=== PATIENT | male | born 1950 | race Caucasian/White ===

== ENCOUNTER 2017-01-04 11:01 | Inpatient (IN) | payer MEDICARE ==
[2017-01-04 12:24] VITALS: BMI 26.5
[2017-01-04] MEDS ORDERED: LIDOCAINE 2% INJ 20 MG/ML (20 ML MDV) ONE (12:48)
[2017-01-04] MEDS ORDERED: PRASUGREL 10 MG TAB ONE (13:00)
[2017-01-04] MEDS ORDERED: BIVALIRUDIN BOLUS 250 MG/50 ML IV ONE (13:10)
[2017-01-04] MEDS: NITROGLYCERIN 1000MCG/10ML SYRINGE INTRACORON ONE ×2 (13:10→13:26)
[2017-01-04] MEDS ORDERED: PRASUGREL 10 MG TAB PO ONE (13:13)
[2017-01-04] MEDS ORDERED: SODIUM CHLORIDE 0.9% 1,000 ML IV ONE (13:14)
[2017-01-04] MEDS ORDERED: BIVALIRUDIN 250 MG in SODIUM CHLORIDE 0.9% 50 ML IV ONE (13:14)
[2017-01-04] MEDS ORDERED: IOHEXOL 350 MG/ML 125ML BOTTLE INJ ONE (13:29)
[2017-01-04] MEDS ORDERED: ZOLPIDEM 5 MG TAB PO PRN (13:44)
[2017-01-04] MEDS ORDERED: MAG HYDROX/AL HYDROX/SIMETH 30 ML CUP PO PRN (13:44)
[2017-01-04] MEDS ORDERED: RX INFO: IV CONTRAST WAS GIVEN 1 EACH MISC MISCELLANE PRN (13:44)
[2017-01-04] MEDS ORDERED: NITROGLYCERIN SL TABS 0.4 MG TAB SUBLINGUAL PRN (13:44)
[2017-01-04] MEDS ORDERED: ATROPINE SULFATE 0.1 MG/ML 10ML SYRINGE IV PRN (13:44)
[2017-01-04] MEDS ORDERED: SODIUM CHLORIDE 0.9% 1,000 ML IV SCH (13:45)
[2017-01-04] MEDS: ATORVASTATIN 80 MG TAB PO SCH (20:34)
[2017-01-04] MEDS: METOPROLOL TARTRATE 25 MG TAB PO SCH (20:34)
[2017-01-04 23:47] LABS: CH 34.3; CHCM 35.5; HCT 41.5 % (39.0-53.0); HDW 2.64; HGB 14.8 gm/dL (13.0-17.5); MCH 34.5 pg (25.0-35.0); MCHC 35.6 g/dL (31.0-37.0); MCV 96.9 fL (80.0-100.0); Mean Platelet Volume 7.9; RBC 4.29 m/uL (4.30-5.90); RDW 13.5 % (11.5-15.5); WBC 6.4 k/uL (3.8-10.6)
[2017-01-04 23:52] LABS: INR 1.1 (<1.2); Prothrombin Time 10.8 sec (9.0-12.0)
[2017-01-05 07:17] LABS: Anion Gap 8 mmol/L; Blood Urea Nitrogen 12 mg/dL (9-20); Calcium 8.6 mg/dL (8.4-10.2); Carbon Dioxide 24 mmol/L (22-30); Chloride 108 mmol/L (98-107); Glucose 77 mg/dL (74-99); Non-African American GFR(MDRD) >60 (>60 ml/min/1.73 sqM); Potassium 4.2 mmol/L (3.5-5.1); Sodium 140 mmol/L (137-145)
[2017-01-05 08:26] VITALS: RESP 16
[2017-01-05] MEDS: METOPROLOL TARTRATE 25 MG TAB PO SCH ×2 (08:28→20:17)
[2017-01-05] MEDS: ASPIRIN 81 MG CHEW PO SCH (08:28)
[2017-01-05] MEDS: PRASUGREL 10 MG TAB PO SCH (08:28)
[2017-01-05] MEDS ORDERED: LISINOPRIL 5 MG TAB PO SCH (09:00)
[2017-01-05] MEDS ORDERED: TAMSULOSIN 0.4 MG CAP.ER.24H PO SCH (09:00)
--- NOTE | 2017-01-05 10:53 | PTCA ---
Mr. Edwards is a 66-year-old male who presented to [facility] with symptoms of chest discomfort. He was evaluated by Dr. Verdugo and subsequently, because of abnormal testing, underwent cardiac catheterization that revealed significant disease involving the LAD, left circumflex and the right coronary artery. In view of that, recommendation was made regarding angioplasty and stenting. The procedure, its risks and complications were discussed with the patient, who was in full understanding and agreement. PROCEDURE: Patient was brought to the microbiology lab manager in a fasting, semi-sedated state. He had received sedation at [facility] and he was in a moderate conscious sedated state. Using guidewire exchange technique, the 6 Maldivian sheath in the right coronary artery was exchanged to a new 6 Maldivian sheath. Following that, 6 Maldivian FL4 guiding catheter was introduced into the system. After cannulating the left main, a 0.014 balanced medium-weight J wire was advanced across the lesion, positioned distally in the LAD. Subsequently a 2.5 x 12 mm Xience Alpine stent was deployed, post dilated at 14 atmospheres. After the last inflation, after appropriate wait, the balloon and the guidewire were withdrawn back into the catheter. Images were obtained and repeated. Those images revealed stable, successful stenting. At that point, the guidewire and the balloon were removed and the wire was introduced in the left circumflex, positioned distally up to its marginal branch, and a 2.75 x 23 mm Xience Alpine stent was deployed, post dilated at 14 atmospheres. After the last inflation, after appropriate wait, the balloon and the guidewire were withdrawn back into the guiding catheter. Images were obtained and repeated. Those images revealed stable successful stenting. At that time the guiding catheter, the balloon and the guidewire were removed and a 6 Maldivian right Pk diagnostic catheter was introduced and images of the right coronary artery were performed after giving intracoronary nitroglycerin. After the catheter and sheath were removed, hemostasis was obtained with deployment of an Angioseal. There were no immediate complications. Patient was returned to his room in stable condition. Of note, patient received Angiomax per protocol as well as oral loading dose of Effient. He had EKG changes as well as chest discomfort with the inflation that resolved at the end of the procedure. RESULT: 1. Successful stenting of the mid LAD, with reduction in stenosis from 90% to 0% . 2. Successful stenting of the first obtuse marginal branch, with reduction in stenosis from 90% to 0%. RECOMMENDATIONS: Patient will be continued on aspirin, Effient, beta blockers and a statin. The importance of dual antiplatelet treatment was discussed with the patient and his family, who are in full understanding and agreement. Duration of procedure was 30 minutes. MTDD
--- NOTE | 2017-01-05 10:57 | MISC ---
LETTER January 04, 2017 Re: Bon Edwards (50) Dear Dr. Iglesias, I had the pleasure of performing coronary angioplasty and stenting on Mr. Edwards at [facility] on January 04, 2017. In brief, he underwent stenting of his LAD and the left circumflex. I am hopeful that this procedure will stabilize his status. He will be evaluated at a later time regarding the need to undergo revascularization of his right coronary artery. Thank you again for allowing me to participate in his care. Please feel free to call with any questions. Sincerely, Adriana Goncalves M.D. LEESA
--- NOTE | 2017-01-05 12:41 | P.PN ---
Subjective Principal diagnosis: CAD This 66-year-old gentleman who presented to [facility] with symptoms of chest discomfort. He was evaluated there by Dr. Verdugo underwent a stress test which came back to be abnormal and subsequently was transferred here. Patient underwent successful stenting of the mid LAD as well as set stenting of the first obtuse marginal branch. He was also noted to have disease in the right coronary artery. Patient was seen and examined this morning, he did have any brief episode of chest discomfort through the night last night lasting only seconds. EKG this morning shows normal sinus rhythm with no changes. Patient has been encouraged to be up ambulating in the hallway today with the plan for possible discharge home in the morning. Objective - Vital Signs Vital signs: Vital Signs Temp 97.1 F L 01/05/17 11:45 Pulse 55 L 01/05/17 11:45 Resp 16 01/05/17 11:45 BP 114/76 01/05/17 11:45 Pulse Ox 96 01/05/17 11:45 Intake & Output 01/04/17 01/05/17 01/05/17 18:59 06:59 18:59 Intake Total 72.08 675 180 Output Total 350 575 Balance -277.92 100 180 Weight 91.172 kg 91.5 kg Intake: IV 72.08 675 Sodium Chloride 0.9% 1, 675 000 ml @ 100 mls/hr IV . Q10H [facility] Rx#:[id number] Oral 180 Output: Urine 350 575 Other: Voiding Method Urinal Toilet Urinal # Voids 1 - Exam PHYSICAL EXAMINATION: HEENT: Head is atraumatic, normocephalic. Pupils equal, round. Neck is supple. There is no elevated jugular venous pressure. HEART EXAMINATION: Heart S1, S2 normal. No murmur or gallop heard. CHEST EXAMINATION: Lungs are clear to auscultation and precussion. No chest wall tenderness is noted on palpation or with deep breathing. ABDOMEN: Soft, nontender. Bowel sounds are heard. No organomegaly noted. Rt groin soft, no evidence of any hematoma. EXTREMITIES: 2+ peripheral pulses with no evidence of peripheral edema and no calf tenderness noted. NEUROLOGIC patient is awake, alert and oriented -3. . - Labs CBC & Chem 7: 01/04/17 23:30 01/05/17 06:46 Labs: Abnormal Lab Results - Last 24 Hours (Table) 01/04/17 01/05/17 Range/Units 23:30 06:46 RBC 4.29 L (4.30-5.90) m/uL Chloride 108 H (98-107) mmol/L Assessment and Plan Plan: Assessment and plan #1 status post angioplasty with stent placement of the mid LAD as well as first obtuse marginal branch. Blockage in the RCA also present. #2 positive stress test #3 hyperlipidemia Plan We will continue the patient on his current medications. He's been encouraged to be up ambulating in the hallway today. We'll plan on discharge home in the morning if stable. He will follow-up with Dr. Garcia in the office in one week. Subsequent to that patient will follow-up with Dr. Metz in the office in approximately 4 weeks. DNP note has been reviewed, I agree with a documented findings and plan of care. Patient was seen and examined.
--- NOTE | 2017-01-05 13:52 | P.HPIM ---
History of Present Illness H&P Date: 01/05/17 Chief Complaint: Abnormal stress test This is a 66-year-old gentleman that is transferred from the [facility] with the chest discomfort and abnormal stress test. Patient was brought into the hospital underwent a coronary angiogram unsuccessful PCI/PTCA to the mid LAD as well as first acute marginal branch Patient is seen today states that he does not have any complaint of headaches nausea vomiting chest pain difficulty breathing abdominal pain. Patient underwent a left radial approach which appears to have no problems No abnormal rhythms were noted Review of Systems All systems: negative (Noted in HPI) Past Medical History Past Medical History: Atrial Fibrillation, Hyperlipidemia Additional Past Medical History / Comment(s): arthritis History of Any Multi-Drug Resistant Organisms: None Reported Past Surgical History: Orthopedic Surgery Past Anesthesia/Blood Transfusion Reactions: No Reported Reaction Past Psychological History: No Psychological Hx Reported Smoking Status: Former smoker Past Alcohol Use History: Occasional Past Drug Use History: None Reported - Past Family History Mother Family Medical History: Cancer Father Family Medical History: CVA/TIA Medications and Allergies Home Medications Medication Instructions Recorded Confirmed Type Ibuprofen [Motrin] 400 mg PO Q6HR PRN 01/04/17 01/04/17 History Multivitamins, Thera [Multivitamin 1 tab PO DAILY 01/04/17 01/04/17 History (formulary)] Davidson-3/Dha/Epa/Fish Oil [Fish Oil 1 cap PO DAILY 01/04/17 01/04/17 History 500 mg Softgel] Turmeric Root Extract [Turmeric] 500 mg PO DAILY 01/04/17 01/04/17 History Allergies Allergy/AdvReac Type Severity Reaction Status Date / Time No Known Allergies Allergy Verified 01/04/17 14:03 Physical Exam Vitals: Vital Signs Temp Pulse Resp BP BP Pulse Ox 01/05/17 11:45 97.1 F L 55 L 16 114/76 96 01/05/17 08:25 97 F L 68 16 125/76 94 L 01/05/17 04:00 98.3 F 57 L 16 125/80 95 01/05/17 00:00 98.1 F 52 L 16 129/79 96 01/04/17 20:00 98.6 F 58 L 16 161/95 96 01/04/17 17:29 69 18 141/86 95 01/04/17 16:29 69 18 140/86 95 07/21/17 16:00 69 18 01/04/17 15:29 96.7 F L 65 18 146/89 97 01/04/17 14:59 66 18 138/76 97 01/04/17 14:29 61 18 132/85 97 01/04/17 14:14 58 L 18 149/87 96 01/04/17 13:56 17 128/60 98 Intake and Output 01/04/17 01/05/17 01/05/17 22:59 06:59 14:59 Intake Total 150 525 180 Output Total 125 450 Balance 25 75 180 Intake: IV 150 525 Sodium Chloride 0.9% 1, 150 525 000 ml @ 100 mls/hr IV . Q10H [facility] Rx#:[id number] Oral 180 Output: Urine 125 450 Other: Voiding Method Urinal Toilet Urinal # Voids 1 1 Weight 91.5 kg Physical exam Gen. appearance oriented 3 in no distress Neck is supple no JVD Lungs good air entry clear to auscultation no rhonchi or wheezing Heart S1-S2 heard regular rate and rhythm no murmurs appreciated Abdomen is soft nontender no organomegaly bowel sounds are intact Neurologically cranial nerves II-12 grossly intact no focal motor or sensory deficits noted Skin no abnormalities appreciated Results CBC & Chem 7: 01/04/17 23:30 01/05/17 06:46 Labs: Abnormal Lab Results - Last 24 Hours (Table) 01/04/17 01/05/17 Range/Units 23:30 06:46 RBC 4.29 L (4.30-5.90) m/uL Chloride 108 H (98-107) mmol/L Thrombosis Risk Factor Assmnt - Choose All That Apply Each Factor Represents 1 point: Obesity (BMI >25) Each Risk Factor Represents 2 Points: Age 61-74 years Thrombosis Risk Factor Assessment Total Risk Factor Score: 3 Thrombosis Risk Factor Assessment Level: Moderate Risk Assessment and Plan Plan: #1 chest pain secondary to coronary disease status post angioplasty of the mid LAD and first of diffuse marginal branch #2 right coronary disease as well #3 dyslipidemia Plan Dual antiplatelet therapy. Statin therapy. Discussed importance of medication as patient will likely be discharged home in the next 24 hours.
[2017-01-05] MEDS: ATORVASTATIN 80 MG TAB PO SCH (20:17)
[2017-01-06] MEDS: PRASUGREL 10 MG TAB PO SCH (08:05)
[2017-01-06] MEDS: METOPROLOL TARTRATE 25 MG TAB PO SCH (08:06)
[2017-01-06] MEDS: ASPIRIN 81 MG CHEW PO SCH (08:06)
[2017-01-06] MEDS ORDERED: METOPROLOL TARTRATE 25 MG TAB PO SCH (11:06)
[2017-01-06] MEDS ORDERED: LISINOPRIL 2.5 MG TAB PO SCH ×2 (11:30)
[2017-01-06] MEDS ORDERED: LISINOPRIL 5 MG TAB PO SCH (12:00)
[2017-01-06 12:15] VITALS: BP 112/68; PULSE 50; TEMP 97.4
[2017-01-06] MEDS: ATORVASTATIN 80 MG TAB PO SCH (12:30)
[2017-01-06] MEDS ORDERED: METOPROLOL TARTRATE 12.5 MG TAB PO SCH (21:00)
--- NOTE | 2017-01-07 11:48 | PN ---
Mr. Edwards is a 66 -year-old gentleman who was evaluated by cardiac catheterization at [facility] because of positive stress test. The patient was found to have triple vessel disease. The patient was brought to [facility] and was noted to have focal disease in the circumflex and the LAD. Rather diffuse disease in the small right coronary artery. The patient had stent placement of both LAD and circumflex. Right coronary artery was felt to be suboptimal for intervention. At this point, we have decided to proceed with maximum medical therapy and see if we can control his symptoms. If necessary, stent placement of the RCA also could be attempted. The patient had one bout of chest pain but since then has been stable. He has been having some loose bowel movement but otherwise the patient is feeling well. His groin is soft. He is being discharged home. He is instructed to take his medications regularly especially the aspirin and also Effient. The patient is concerned about the cost of Effient. We will change Effient to Plavix in about six weeks time. Until then, the patient will have some samples. The patient will have follow up in the office in one weeks time. The rest of the medications to be continued. Clinically, the patients lungs are clear. Heart is regular. No JVD. No peripheral edema. Vital signs are stable. IMPRESSION: 1. Status post stent placement of the LAD and circumflex with severe disease in the RCA which is a small caliber vessel. 2. Positive stress test. 3. Hypercholesterolemia. Follow up in the office in one week. LEESA
== END 2017-01-06 13:31 | disposition home or self-care (01) | DRG 247 ==
LOC: 6SEL 12:18
PROVIDERS: ADMIT Family Medicine; ATTEND Family Medicine
PROC: B2111ZZ Fluoroscopy of Multiple Coronary Arteries using Low Osmolar Contrast (ICD-10-PCS; 2017-01-04)
PROC: 027135Z Dilation of Coronary Artery, Two Arteries with Two Drug-eluting Intraluminal Devices, Percutaneous Approach (ICD-10-PCS; principal; 2017-01-04 13:00)
PROC: 4A023N7 Measurement of Cardiac Sampling and Pressure, Left Heart, Percutaneous Approach (ICD-10-PCS; 2017-01-04 13:00)
DX: I25.10 Atherosclerotic heart disease of native coronary artery without angina pectoris (principal); I48.91 Unspecified atrial fibrillation; E78.5 Hyperlipidemia, unspecified; E78.00 Pure hypercholesterolemia, unspecified; R94.39 Abnormal result of other cardiovascular function study; M19.90 Unspecified osteoarthritis, unspecified site; Z79.01 Long term (current) use of anticoagulants; Z87.891 Personal history of nicotine dependence; Z79.82 Long term (current) use of aspirin; Z79.1 Long term (current) use of non-steroidal anti-inflammatories (NSAID); Z79.899 Other long term (current) drug therapy; Z82.3 Family history of stroke; Z80.9 Family history of malignant neoplasm, unspecified
CPT/HCPCS: 80048; 85027; 85610

== ENCOUNTER 2017-12-18 21:47 | Emergency (ER) | payer MEDICARE ==
[2017-12-18 22:03] VITALS: BP 162/88; TEMP 98
[2017-12-18] MEDS ORDERED: SODIUM CHLORIDE 0.9% 1,000 ML IV STA (22:16)
[2017-12-18] MEDS ORDERED: ONDANSETRON 4 MG/2 ML VIAL IVP STA (22:16)
[2017-12-18] MEDS ORDERED: KETOROLAC 30 MG/ML 1 ML VIAL IVP STA (22:16)
[2017-12-18] MEDS ORDERED: MORPHINE SULFATE 2 MG/ML SYRINGE IVP STA (22:16)
[2017-12-18 22:37] LABS: Basophils % (A) 0 %; Eosinophils # (A) 0.1 k/uL (0-0.7); Eosinophils % (A) 1 %; HCT 43.6 % (39.0-53.0); Lymphocytes # (A) 0.7 k/uL (1.0-4.8); Lymphocytes % (A) 7 %; MCH 32.4 pg (25.0-35.0); MCHC 34.4 g/dL (31.0-37.0); MCV 94.4 fL (80.0-100.0); Mean Platelet Volume 7.1; Monocytes # (A) 0.5 k/uL (0-1.0); Monocytes % (A) 6 %; Neutrophils # (A) 8.1 k/uL (1.3-7.7); Neutrophils % (A) 85 %; Platelet Count 201 k/uL (150-450); RBC 4.62 m/uL (4.30-5.90); RDW 12.8 % (11.5-15.5); WBC 9.5 k/uL (3.8-10.6)
[2017-12-18 22:46] LABS: Albumin 4.1 g/dL (3.5-5.0); Calcium 8.7 mg/dL (8.4-10.2); Potassium 4.3 mmol/L (3.5-5.1); Total Bilirubin 0.7 mg/dL (0.2-1.3); Total Protein 6.7 g/dL (6.3-8.2)
[2017-12-18 22:53] LABS: Appearance,Urine Cloudy (Clear); Bacteria,Urine Rare /hpf; Bilirubin,Urine Negative (Negative); Blood,Urine Large (Negative); Color,Urine Light Red; Glucose,Urine (UA) Negative (Negative); Ketones,Urine Trace (Negative); Leukocyte Esterase,Urine Negative (Negative); Mucus,Urine Rare /hpf; Nitrite,Urine Negative (Negative); PH, Urine 5.5 (5.0-8.0); Protein,Urine 1+ (Negative); RBC,Urine >182 /hpf (0-5); Specific Gravity,Urine 1.024 (1.001-1.035)
[2017-12-18] MEDS ORDERED: TAMSULOSIN 0.4 MG CAP.ER.24H PO STA (22:55)
--- NOTE | 2017-12-18 22:57 | XR ---
EXAMINATION TYPE: XR KUB DATE OF EXAM: 12/18/2017 COMPARISON: 02/14/2014 HISTORY: Abdominal pain TECHNIQUE: 2 upright views FINDINGS: There is no sign of intestinal obstruction or pneumoperitoneum. Fecal pattern is normal. Th ere are no pathologic calcifications over the kidneys. Lung bases are clear of consolidation. IMPRESSION: Nonacute abdomen. No change.
[2017-12-18] MEDS ORDERED: ACET/COD 300 MG/30 MG STARTER PACK 6 TAB BTL PO STA (23:18)
[2017-12-18] MEDS ORDERED: IBUPROFEN 600 MG STARTER PACK 4 TAB BTL PO STA (23:19)
[2017-12-18] MEDS ORDERED: ONDANSETRON 4 MG ODT STARTER PACK 2 TAB BTL PO STA (23:19)
--- NOTE | 2017-12-18 23:21 | ED ---
Abdominal Pain HPI - General Chief Complaint: Abdominal Pain Stated Complaint: Abd Pain Time Seen by Provider: 12/18/17 22:07 Source: patient Mode of arrival: ambulatory Limitations: no limitations - History of Present Illness Initial Comments: 67-year-old male patient presents to the emergency department today for evaluation of left flank pain. Patient states this pain has been going on for the last couple of hours. States that the pain has moved into his left lower quadrant abdomen. States it is sharp and stabbing. States it feels similar to when he has had kidney stones in the past. Patient states he has noticed blood clots in his urine. States he has been nauseated and has vomited a couple of times. Denies any hematemesis. Denies any fever or chills. Denies any constipation or diarrhea. Patient denies any recent rash, shortness breath, chest pain, numbness, tingling, dizziness, weakness, headache, visual changes, or any other complaints. - Related Data Home Medications Medication Instructions Recorded Confirmed Mims-3/Dha/Epa/Fish Oil [Fish Oil 1 cap PO DAILY 01/04/17 01/04/17 500 mg Softgel] Previous Rx's Medication Instructions Recorded Aspirin 81 mg PO DAILY #30 01/06/17 Atorvastatin [Lipitor] 80 mg PO HS #30 tab 01/06/17 Lisinopril [Zestril] 2.5 mg PO DAILY #1 tab 01/06/17 Metoprolol Tartrate 12.5 mg PO BID #1 tab 01/06/17 Nitroglycerin Sl Tabs [Nitrostat] 0.4 mg SUBLINGUAL Q5M PRN #100 tab 01/06/17 Prasugrel [Effient] 10 mg PO DAILY #1 tablet 01/06/17 Hydrocodone/Acetaminophen [[place] 1 tab PO Q6HR PRN #12 tab 12/18/17 5-325] Ibuprofen [Motrin] 600 mg PO Q8HR PRN #30 tab 12/18/17 Ondansetron [Zofran ODT] 4 mg PO Q8HR PRN #10 tab 12/18/17 Tamsulosin HCl [Flomax] 0.4 mg PO DAILY #7 cap 12/18/17 Allergies Allergy/AdvReac Type Severity Reaction Status Date / Time No Known Allergies Allergy Verified 12/18/17 22:03 Review of Systems ROS Statement: Those systems with pertinent positive or pertinent negative responses have been documented in the HPI. ROS Other: All systems not noted in ROS Statement are negative. Past Medical History Past Medical History: Atrial Fibrillation, Chest Pain / Angina, Hyperlipidemia Additional Past Medical History / Comment(s): arthritis History of Any Multi-Drug Resistant Organisms: None Reported Past Surgical History: Heart Catheterization With Stent, Orthopedic Surgery Past Anesthesia/Blood Transfusion Reactions: No Reported Reaction Past Psychological History: No Psychological Hx Reported Smoking Status: Former smoker Past Alcohol Use History: Occasional Past Drug Use History: None Reported - Past Family History Mother Family Medical History: Cancer Father Family Medical History: CVA/TIA General Exam Limitations: no limitations General appearance: alert, in no apparent distress, other (Social well-developed , well-nourished adult male patient in no acute distress. Vital signs upon presentation are temperature 98.0F, pulse 57, respirations 16, blood pressure 162/88, pulse ox 97% on room air.) Eye exam: Present: normal appearance, PERRL, EOMI. Absent: scleral icterus, conjunctival injection, periorbital swelling Respiratory exam: Present: normal lung sounds bilaterally. Absent: respiratory distress, wheezes, rales, rhonchi, stridor Cardiovascular Exam: Present: regular rate, normal rhythm, normal heart sounds. Absent: systolic murmur, diastolic murmur, rubs, gallop, clicks GI/Abdominal exam: Present: soft, tenderness (Mild tenderness left lower quadrant), normal bowel sounds. Absent: distended, guarding, rebound, rigid Neurological exam: Present: alert, oriented X3, CN II-XII intact Psychiatric exam: Present: normal affect, normal mood Skin exam: Present: warm, dry, intact, normal color. Absent: rash Course Vital Signs 12/18/17 12/18/17 21:59 23:44 Temperature 98 F Pulse Rate 57 L 70 Respiratory 16 19 Rate Blood Pressure 162/88 O2 Sat by Pulse 97 Oximetry Medical Decision Making - Medical Decision Making 67 year-old male patient presented to the emergency department today for complaints of left flank pain that radiates into the left lower quadrant abdomen. Physical examination did reveal some mild left lower quadrant tenderness. Labs reviewed and did show BUN of 23, creatinine 1.1, urinalysis showed 1+ protein, trace ketones, large blood, greater than 182 red blood cells , rare bacteria, and rare mucous. KUB x-ray of the abdomen was unremarkable. Patient does have history of kidney stones, urinalysis findings are consistent with kidney stone. He will be discharged with pain management, Flomax, and instructions to increase fluids. He is instructed to follow-up with urology for further evaluation. Return parameters discussed in detail. He verbalizes understanding and agrees with this plan. - Lab Data Result diagrams: 12/18/17 20:28 12/18/17 20:28 Lab Results 12/18/17 12/18/17 12/18/17 Range/Units 20:28 20:28 22:25 WBC 9.5 (3.8-10.6) k/uL RBC 4.62 (4.30-5.90) m/uL Hgb 15.0 (13.0-17.5) gm/dL Hct 43.6 (39.0-53.0) % MCV 94.4 (80.0-100.0) fL MCH 32.4 (25.0-35.0) pg MCHC 34.4 (31.0-37.0) g/dL RDW 12.8 (11.5-15.5) % Plt Count 201 (150-450) k/uL Neutrophils % 85 % Lymphocytes % 7 % Monocytes % 6 % Eosinophils % 1 % Basophils % 0 % Neutrophils # 8.1 H (1.3-7.7) k/uL Lymphocytes # 0.7 L (1.0-4.8) k/uL Monocytes # 0.5 (0-1.0) k/uL Eosinophils # 0.1 (0-0.7) k/uL Basophils # 0.0 (0-0.2) k/uL Sodium 141 (137-145) mmol/L Potassium 4.3 (3.5-5.1) mmol/L Chloride 109 H (98-107) mmol/L Carbon Dioxide 23 (22-30) mmol/L Anion Gap 9 mmol/L BUN 23 H (9-20) mg/dL Creatinine 1.10 (0.66-1.25) mg/dL Est GFR (CKD-EPI)AfAm 80 (>60 ml/min/1.73 sqM) Est GFR (CKD-EPI)NonAf 69 (>60 ml/min/1.73 sqM) Glucose 120 H (74-99) mg/dL Calcium 8.7 (8.4-10.2) mg/dL Total Bilirubin 0.7 (0.2-1.3) mg/dL AST 27 (17-59) U/L ALT 46 (21-72) U/L Alkaline Phosphatase 97 (38-126) U/L Total Protein 6.7 (6.3-8.2) g/dL Albumin 4.1 (3.5-5.0) g/dL Amylase 57 (30-110) U/L Lipase 94 (23-300) U/L Urine Color Light Red Urine Appearance Cloudy (Clear) Urine pH 5.5 (5.0-8.0) Ur Specific [place] 1.024 (1.001-1.035) Urine Protein 1+ H (Negative) Urine Glucose (UA) Negative (Negative) Urine Ketones Trace H (Negative) Urine Blood Large H (Negative) Urine Nitrite Negative (Negative) Urine Bilirubin Negative (Negative) Urine Urobilinogen 2.0 (<2.0) mg/dL Ur Leukocyte Esterase Negative (Negative) Urine RBC >182 H (0-5) /hpf Urine Bacteria Rare H (None) /hpf Urine Mucus Rare H (None) /hpf - Radiology Data Radiology results: report reviewed, image reviewed To up reviews of the abdomen are obtained. This on sign of intestinal structure pneumoperitoneum. Fecal pattern is normal. There are no pathologic calcifications over the kidneys. Lung bases are clear consolidation. Impression by Dr. Collazo shows nonacute abdomen no change. Disposition Clinical Impression: Kidney stone on left side Disposition: HOME SELF-CARE Condition: Good Instructions: Kidney Stones (ED), How to Strain Your Urine (ED) Additional Instructions: Increase fluids. Take medications as directed. Follow-up with urology for further evaluation. Return here immediately for any new, worsening, or concerning symptoms. Prescriptions: Hydrocodone/Acetaminophen [[place] 5-325] 1 tab PO Q6HR PRN #12 tab PRN Reason: Pain Ibuprofen [Motrin] 600 mg PO Q8HR PRN #30 tab PRN Reason: Pain Ondansetron [Zofran ODT] 4 mg PO Q8HR PRN #10 tab PRN Reason: Nausea Tamsulosin HCl [Flomax] 0.4 mg PO DAILY #7 cap Is patient prescribed a controlled substance at d/c from ED?: Yes When asked, does pt state using other controlled substances?: No If prescribed controlled substance>3 days was MAPS reviewed?: Prescribed <3 Days If opioid is for acute pain is fill amount 7 days or less?: Yes If Rx opioid, was Start Talking consent form obtained?: Yes Referrals: Ariel Iglesias MD [Primary Care Provider] - 1-2 days Jerson Freeman MD [STAFF PHYSICIAN] - 1-2 days Time of Disposition: 23:21
[2017-12-18 23:46] VITALS: PULSE 70; RESP 19
== END 2017-12-18 23:44 | disposition home or self-care (01) ==
LOC: EC 21:47
DX: N20.0 Calculus of kidney (principal); Z87.891 Personal history of nicotine dependence; Z79.899 Other long term (current) drug therapy
CPT/HCPCS: 99284; 96374; 96375 ×2; 36415; 80053; 82150; 83690; 85025; 81001; 74018; J2405; J1885; J2270; S0119

== ENCOUNTER 2018-02-10 08:47 | Inpatient (IN) | payer MEDICARE ==
[2018-02-10] MEDS ORDERED: MORPHINE SULFATE 4 MG/ML SYRINGE IV STA (08:58)
[2018-02-10] MEDS ORDERED: SODIUM CHLORIDE 0.9% 1,000 ML IV STA (08:58)
[2018-02-10] MEDS ORDERED: ONDANSETRON 4 MG/2 ML VIAL IVP STA (08:58)
--- NOTE | 2018-02-10 09:04 | ED ---
Abdominal Pain HPI - General Chief Complaint: Abdominal Pain Stated Complaint: abd pain Time Seen by Provider: 02/10/18 08:52 Source: patient, RN notes reviewed Mode of arrival: ambulatory Limitations: no limitations - History of Present Illness Initial Comments: This is a 67-year-old male that presents to emergency department with chief complaint of abdominal pain. Patient states she's been having increasing abdominal pain over the last 1-2 weeks. Patient states that the pain is primarily in his left lower quadrant and he has noticed change in his stool. He states that he can barely get any stool out he states it is very narrow in shape. He states that his normal consistency. Patient states when he is able to get some swelling he does get some relief of his symptoms. Patient has no dysuria, hematuria, dysuria, melena or hematochezia. Patient had a colonoscopy approximately 10 years ago which showed some diverticulosis. He states he's had no infections including diverticulitis, colitis. Patient reports no fever, chills, night sweats, chest pain or shortness of breath. - Related Data Home Medications Medication Instructions Recorded Confirmed Atorvastatin [Lipitor] 40 mg PO HS 02/10/18 02/10/18 Previous Rx's Medication Instructions Recorded Aspirin 81 mg PO DAILY #30 01/06/17 Nitroglycerin Sl Tabs [Nitrostat] 0.4 mg SUBLINGUAL Q5M PRN #100 tab 01/06/17 Ondansetron [Zofran ODT] 4 mg PO Q8HR PRN #10 tab 12/18/17 Allergies Allergy/AdvReac Type Severity Reaction Status Date / Time No Known Allergies Allergy Verified 02/10/18 10:11 Review of Systems ROS Statement: Those systems with pertinent positive or pertinent negative responses have been documented in the HPI. ROS Other: All systems not noted in ROS Statement are negative. Past Medical History Past Medical History: Atrial Fibrillation, Chest Pain / Angina, Hyperlipidemia Additional Past Medical History / Comment(s): arthritis History of Any Multi-Drug Resistant Organisms: None Reported Past Surgical History: Heart Catheterization With Stent, Orthopedic Surgery Past Anesthesia/Blood Transfusion Reactions: No Reported Reaction Past Psychological History: No Psychological Hx Reported Smoking Status: Former smoker Past Alcohol Use History: Occasional Past Drug Use History: None Reported - Past Family History Mother Family Medical History: Cancer Father Family Medical History: CVA/TIA General Exam Limitations: no limitations General appearance: alert, in no apparent distress Head exam: Present: atraumatic, normocephalic, normal inspection Respiratory exam: Present: normal lung sounds bilaterally. Absent: respiratory distress, wheezes, rales, rhonchi, stridor Cardiovascular Exam: Present: regular rate, normal rhythm, normal heart sounds. Absent: systolic murmur, diastolic murmur, rubs, gallop, clicks GI/Abdominal exam: Present: soft, tenderness (Moderate left lower quadrant tenderness), normal bowel sounds. Absent: distended, guarding, rebound, rigid Back exam: Absent: CVA tenderness (R), CVA tenderness (L) Skin exam: Present: warm, dry, intact, normal color. Absent: rash Course Vital Signs 02/10/18 02/10/18 08:49 10:15 Temperature 98.1 F Pulse Rate 80 64 Respiratory 20 18 Rate Blood Pressure 135/86 123/70 O2 Sat by Pulse 97 96 Oximetry Medical Decision Making - Lab Data Result diagrams: 02/10/18 09:09 02/10/18 09:09 Lab Results 02/10/18 02/10/18 02/10/18 Range/Units 09:09 09:09 09:09 WBC 9.7 (3.8-10.6) k/uL RBC 4.59 (4.30-5.90) m/uL Hgb 15.1 (13.0-17.5) gm/dL Hct 43.6 (39.0-53.0) % MCV 94.9 (80.0-100.0) fL MCH 33.0 (25.0-35.0) pg MCHC 34.7 (31.0-37.0) g/dL RDW 12.7 (11.5-15.5) % Plt Count 223 (150-450) k/uL Neutrophils % 80 % Lymphocytes % 8 % Monocytes % 9 % Eosinophils % 1 % Basophils % 1 % Neutrophils # 7.8 H (1.3-7.7) k/uL Lymphocytes # 0.8 L (1.0-4.8) k/uL Monocytes # 0.9 (0-1.0) k/uL Eosinophils # 0.1 (0-0.7) k/uL Basophils # 0.1 (0-0.2) k/uL PT 10.1 (9.0-12.0) sec INR 1.0 (<1.2) APTT 25.7 (22.0-30.0) sec Sodium 138 (137-145) mmol/L Potassium 4.2 (3.5-5.1) mmol/L Chloride 108 H (98-107) mmol/L Carbon Dioxide 22 (22-30) mmol/L Anion Gap 8 mmol/L BUN 14 (9-20) mg/dL Creatinine 0.86 (0.66-1.25) mg/dL Est GFR (CKD-EPI)AfAm >90 (>60 ml/min/1.73 sqM) Est GFR (CKD-EPI)NonAf 90 (>60 ml/min/1.73 sqM) Glucose 90 (74-99) mg/dL Calcium 8.8 (8.4-10.2) mg/dL Total Bilirubin 1.8 H (0.2-1.3) mg/dL AST 21 (17-59) U/L ALT 33 (21-72) U/L Alkaline Phosphatase 84 (38-126) U/L Total Protein 7.0 (6.3-8.2) g/dL Albumin 4.0 (3.5-5.0) g/dL Amylase 51 (30-110) U/L Lipase 63 (23-300) U/L Urine Color Urine Appearance (Clear) Urine pH (5.0-8.0) Ur Specific [place] (1.001-1.035) Urine Protein (Negative) Urine Glucose (UA) (Negative) Urine Ketones (Negative) Urine Blood (Negative) Urine Nitrite (Negative) Urine Bilirubin (Negative) Urine Urobilinogen (<2.0) mg/dL Ur Leukocyte Esterase (Negative) 02/10/18 Range/Units 10:20 WBC (3.8-10.6) k/uL RBC (4.30-5.90) m/uL Hgb (13.0-17.5) gm/dL Hct (39.0-53.0) % MCV (80.0-100.0) fL MCH (25.0-35.0) pg MCHC (31.0-37.0) g/dL RDW (11.5-15.5) % Plt Count (150-450) k/uL Neutrophils % % Lymphocytes % % Monocytes % % Eosinophils % % Basophils % % Neutrophils # (1.3-7.7) k/uL Lymphocytes # (1.0-4.8) k/uL Monocytes # (0-1.0) k/uL Eosinophils # (0-0.7) k/uL Basophils # (0-0.2) k/uL PT (9.0-12.0) sec INR (<1.2) APTT (22.0-30.0) sec Sodium (137-145) mmol/L Potassium (3.5-5.1) mmol/L Chloride (98-107) mmol/L Carbon Dioxide (22-30) mmol/L Anion Gap mmol/L BUN (9-20) mg/dL Creatinine (0.66-1.25) mg/dL Est GFR (CKD-EPI)AfAm (>60 ml/min/1.73 sqM) Est GFR (CKD-EPI)NonAf (>60 ml/min/1.73 sqM) Glucose (74-99) mg/dL Calcium (8.4-10.2) mg/dL Total Bilirubin (0.2-1.3) mg/dL AST (17-59) U/L ALT (21-72) U/L Alkaline Phosphatase (38-126) U/L Total Protein (6.3-8.2) g/dL Albumin (3.5-5.0) g/dL Amylase (30-110) U/L Lipase (23-300) U/L Urine Color Yellow Urine Appearance Clear (Clear) Urine pH 5.0 (5.0-8.0) Ur Specific [place] 1.017 (1.001-1.035) Urine Protein Negative (Negative) Urine Glucose (UA) Negative (Negative) Urine Ketones Negative (Negative) Urine Blood Negative (Negative) Urine Nitrite Negative (Negative) Urine Bilirubin Negative (Negative) Urine Urobilinogen <2.0 (<2.0) mg/dL Ur Leukocyte Esterase Negative (Negative) Disposition Clinical Impression: Mesenteric mass, Change in bowel habits, Abnormal stool caliber, Diverticulitis Disposition: ADMITTED IP TO THIS [facility] Condition: Fair Referrals: None,Stated [Primary Care Provider] - 1-2 days
[2018-02-10 09:23] LABS: Basophils # (A) 0.1 k/uL (0-0.2); Basophils % (A) 1 %; Eosinophils # (A) 0.1 k/uL (0-0.7); Eosinophils % (A) 1 %; HCT 43.6 % (39.0-53.0); HGB 15.1 gm/dL (13.0-17.5); Lymphocytes # (A) 0.8 k/uL (1.0-4.8); Lymphocytes % (A) 8 %; MCHC 34.7 g/dL (31.0-37.0); MCV 94.9 fL (80.0-100.0); Mean Platelet Volume 6.9; Monocytes # (A) 0.9 k/uL (0-1.0); Monocytes % (A) 9 %; Neutrophils # (A) 7.8 k/uL (1.3-7.7); Neutrophils % (A) 80 %; Platelet Count 223 k/uL (150-450); RBC 4.59 m/uL (4.30-5.90); RDW 12.7 % (11.5-15.5); WBC 9.7 k/uL (3.8-10.6)
[2018-02-10 09:31] LABS: Partial Thromboplastin Time 25.7 sec (22.0-30.0); Prothrombin Time 10.1 sec (9.0-12.0)
[2018-02-10 09:32] LABS: ALT 33 U/L (21-72); AST 21 U/L (17-59); Alkaline Phosphatase 84 U/L (38-126); Amylase 51 U/L (30-110); Anion Gap 8 mmol/L; Blood Urea Nitrogen 14 mg/dL (9-20); Calcium 8.8 mg/dL (8.4-10.2); Carbon Dioxide 22 mmol/L (22-30); Chloride 108 mmol/L (98-107); Glucose 90 mg/dL (74-99); Lipase 63 U/L (23-300); Potassium 4.2 mmol/L (3.5-5.1); Sodium 138 mmol/L (137-145); Total Bilirubin 1.8 mg/dL (0.2-1.3)
[2018-02-10 10:19] VITALS: RESP 18
[2018-02-10 10:39] LABS: Appearance,Urine Clear (Clear); Bilirubin,Urine Negative (Negative); Blood,Urine Negative (Negative); Color,Urine Yellow; Glucose,Urine (UA) Negative (Negative); Ketones,Urine Negative (Negative); Leukocyte Esterase,Urine Negative (Negative); Nitrite,Urine Negative (Negative); Protein,Urine Negative (Negative); Specific Gravity,Urine 1.017 (1.001-1.035); Urobilinogen,Urine <2.0 mg/dL (<2.0)
--- NOTE | 2018-02-10 10:45 | CT ---
EXAMINATION TYPE: CT abdomen pelvis w con DATE OF EXAM: 02/10/2018 COMPARISON: CT abdomen pelvis 02/14/2014 HISTORY: Left lower quadrant pain CT DLP: 1009.1 mGycm Automated exposure control for dose reduction was used. TECHNIQUE: Helical acquisition of images from the lung bases through the pelvis have been completed. CONTRAST: Performed without Oral Contrast and with IV Contrast, patient injected with 100 mL of Isovue 300. FINDINGS: There is a mesenteric soft tissue mass present encasing mesenteric vasculature and distal t o the root, anterior to the head of the pancreas inferior margin as well as duodenum and measuring ap proximately 4.1 x 6 x 6.3 cm. Punctate calcification again seen within the mesenteric fat soft tissue , possible emerald tissue, soft tissue density also extends along the superior mesenteric artery toward s the root of the mesentery. This is an interval finding. Suspect some coronary artery calcification may be present. LUNG BASES: No significant abnormality is appreciated. AORTA: No significant abnormality is appreciated. LIVER/GB: Liver shows low attenuation possibly due to hepatic steatosis, gallbladder is normal.. PANCREAS: No significant abnormality is seen. SPLEEN: No significant abnormality is seen. ADRENALS: No significant abnormality is seen. KIDNEYS: No significant abnormality is seen. REPRODUCTIVE ORGANS: No significant abnormality is seen BOWEL: Abnormal thickening of the sigmoid colon is present with pericolonic groundglass opacity with in the surrounding fat. Diverticular change is present within the colon. The appendix is normal. FREE AIR: No Free Air visible. ASCITES: None visible. PELVIC ADENOPATHY: None visualized. RETROPERITONEAL ADENOPATHY: No Retroperitoneal Adenopathy visible. URINARY BLADDER: No significant abnormality is seen. OSSEOUS STRUCTURES: No significant abnormality is seen. IMPRESSION: SOFT TISSUE MESENTERIC MASS, CONSIDER LYMPHOMA. Diverticulitis. Follow-up recommended.
[2018-02-10] MEDS ORDERED: LEVOFLOXACIN 750MG-D5W PMX 750 MG in DEXTROSE/WATER 1 150ML.BAG IVPB STA (10:56)
[2018-02-10] MEDS ORDERED: ONDANSETRON 4 MG/2 ML VIAL IVP PRN (10:58)
[2018-02-10] MEDS ORDERED: MORPHINE SULFATE 4 MG/ML SYRINGE IV PRN (10:58)
[2018-02-10] MEDS ORDERED: HYDROcodone/APAP 5-325MG 1 EACH TAB PO PRN (10:58)
[2018-02-10] MEDS ORDERED: metroNIDAZOLE-NS PMX 500 MG in SALINE 1 100ML.BAG IVPB STA (10:58)
[2018-02-10] MEDS ORDERED: KETOROLAC 30 MG/ML 1 ML VIAL IVP PRN (11:58)
[2018-02-10] MEDS ORDERED: ONDANSETRON ODT 4 MG TAB PO PRN (12:00)
[2018-02-10] MEDS ORDERED: NITROGLYCERIN SL TABS 0.4 MG TAB SUBLINGUAL PRN (12:00)
[2018-02-10] MEDS: cefTRIAXone IN SWFI 1,000 MG/10 ML SYRINGE IVP SCH (12:38)
[2018-02-10] MEDS: SODIUM CHLORIDE 0.9% 1,000 ML IV SCH (12:45)
[2018-02-10] MEDS ORDERED: PNEUMOCOCCAL VACC-PNEUMOVAX 23 25 MCG/0.5 ML VIAL IM ONE (12:46)
--- NOTE | 2018-02-10 15:01 | P.HPIM ---
History of Present Illness This is a pleasant 67-year-old gentleman came in with complaints of left lower quadrant abdominal pain along with nausea found to have diverticular colitis patient is also found to have incidental finding of mass in the mesenteric around the pancreas area concerning for lymphoma. Patient nausea improved patient was started on not really clear liquid diet advance as tolerated patient was started on Rocephin and azithromycin IV fluids. Patient denied any fever chills patient doesn't have any leukocytosis. Review of Systems REVIEW OF SYSTEMS: CONSTITUTIONAL: No fever, no malaise, no fatigue. HEENT: No recent visual problems or hearing problems. Denied any sore throat. CARDIOVASCULAR: No chest pain, orthopnea, PND, no palpitations, no syncope. PULMONARY: No shortness of breath, no cough, no hemoptysis. GASTROINTESTINAL: As mentioned in HPI NEUROLOGICAL: No headaches, no weakness, no numbness. HEMATOLOGICAL: Denies any bleeding or petechiae. GENITOURINARY: Denies any burning micturition, frequency, or urgency. MUSCULOSKELETAL/RHEUMATOLOGICAL: Denies any joint pain, swelling, or any muscle pain. ENDOCRINE: Denies any polyuria or polydipsia. The rest of the 14-point review of systems is negative. Past Medical History Past Medical History: Atrial Fibrillation, Coronary Artery Disease (CAD), Chest Pain / Angina, Hyperlipidemia Additional Past Medical History / Comment(s): Per PMH pt has afib but pt does not recall being told this, arthritis multiple joints, kidney stones which pt passed on his own, ocular migraines, posterior vitreous separation (sees floaters) bilaterally, bronchitis multiple times. History of Any Multi-Drug Resistant Organisms: None Reported Past Surgical History: Heart Catheterization With Stent, Orthopedic Surgery Additional Past Surgical History / Comment(s): 01/05/17 PCI with stent to mid LAD and 1st obtuse marginal branch, R knee arthroscopy, bilateral great toes bone spurs removed, L achilles tendon repair, L undescended testicle surgery. Past Anesthesia/Blood Transfusion Reactions: No Reported Reaction Date of Last Stent Placement:: 01/05/17 Smoking Status: Former smoker - Past Family History Mother Family Medical History: Cancer Additional Family Medical History / Comment(s): Mother of metastatic ovarian cancer at the age of 83 yrs. Father Family Medical History: CVA/TIA Additional Family Medical History / Comment(s): Father had a CVA. He from a [place] at the age of 86yrs. Medications and Allergies Home Medications Medication Instructions Recorded Confirmed Type Aspirin 81 mg PO DAILY #30 01/06/17 02/10/18 Rx Nitroglycerin Sl Tabs [Nitrostat] 0.4 mg SUBLINGUAL Q5M PRN #100 tab 01/06/17 Rx Ondansetron [Zofran ODT] 4 mg PO Q8HR PRN #10 tab 12/18/17 02/10/18 Rx Atorvastatin [Lipitor] 40 mg PO HS 02/10/18 02/10/18 History Allergies Allergy/AdvReac Type Severity Reaction Status Date / Time No Known Allergies Allergy Verified 02/10/18 10:11 Physical Exam Vitals: Vital Signs Temp Pulse Pulse Resp BP BP Pulse Ox 02/10/18 12:00 97.7 F 68 18 129/69 96 02/10/18 11:21 68 18 130/67 96 02/10/18 10:15 64 18 123/70 96 02/10/18 08:49 98.1 F 80 20 135/86 97 Intake and Output 02/09/18 02/10/18 02/10/18 22:59 06:59 14:59 Other: # Voids 1 Weight 95.254 kg Results CBC & Chem 7: 02/10/18 09:09 02/10/18 09:09 Labs: Abnormal Lab Results - Last 24 Hours (Table) 02/10/18 02/10/18 Range/Units 09:09 09:09 Neutrophils # 7.8 H (1.3-7.7) k/uL Lymphocytes # 0.8 L (1.0-4.8) k/uL Chloride 108 H (98-107) mmol/L Total Bilirubin 1.8 H (0.2-1.3) mg/dL Thrombosis Risk Factor Assmnt - Choose All That Apply Any of the Below Risk Factors Present?: Yes Each Factor Represents 1 point: Obesity (BMI >25) Other Risk Factors: Yes Each Risk Factor Represents 2 Points: Age 61-74 years Other congenital or acquired thrombophilia - If yes, enter type in comment: No Thrombosis Risk Factor Assessment Total Risk Factor Score: 3 Thrombosis Risk Factor Assessment Level: Moderate Risk Assessment and Plan Plan: -Diverticulitis: Patient will be started on Rocephin and metronidazole for possibility of discharge tomorrow advance her diet as tolerated. -Incidental finding of mesenteric lesion or mass, will get oncology opinion regarding further workup and possible outpatient follow-up for this -Hyperlipidemia continue with the Lipitor -Coronary artery disease continue with the beta fariha statin.
--- NOTE | 2018-02-10 15:53 | P.GSCN ---
History of Present Illness Consult date: 02/10/18 Reason for Consult: Diverticulitis History of present illness: This is a 67-year-old male who is admitted to the hospital with diverticulitis. Patient states he had pain for present for 48 hours. Patient CAT scan which shows diverticulosis sigmoid colon. He also has a suspicious mass which may be related to lymphoma. Patient denies a nausea fevers or chills. Past Medical History Past Medical History: Atrial Fibrillation, Coronary Artery Disease (CAD), Chest Pain / Angina, Hyperlipidemia Additional Past Medical History / Comment(s): Per PMH pt has afib but pt does not recall being told this, arthritis multiple joints, kidney stones which pt passed on his own, ocular migraines, posterior vitreous separation (sees floaters) bilaterally, bronchitis multiple times. History of Any Multi-Drug Resistant Organisms: None Reported Past Surgical History: Heart Catheterization With Stent, Orthopedic Surgery Additional Past Surgical History / Comment(s): 01/05/17 PCI with stent to mid LAD and 1st obtuse marginal branch, R knee arthroscopy, bilateral great toes bone spurs removed, L achilles tendon repair, L undescended testicle surgery. Past Anesthesia/Blood Transfusion Reactions: No Reported Reaction Date of Last Stent Placement:: 01/05/17 Smoking Status: Former smoker - Past Family History Mother Family Medical History: Cancer Additional Family Medical History / Comment(s): Mother of metastatic ovarian cancer at the age of 83 yrs. Father Family Medical History: CVA/TIA Additional Family Medical History / Comment(s): Father had a CVA. He from a [place] at the age of 86yrs. Medications and Allergies Home Medications Medication Instructions Recorded Confirmed Type Aspirin 81 mg PO DAILY #30 01/06/17 02/10/18 Rx Nitroglycerin Sl Tabs [Nitrostat] 0.4 mg SUBLINGUAL Q5M PRN #100 tab 01/06/17 Rx Ondansetron [Zofran ODT] 4 mg PO Q8HR PRN #10 tab 12/18/17 02/10/18 Rx Atorvastatin [Lipitor] 40 mg PO HS 02/10/18 02/10/18 History Allergies Allergy/AdvReac Type Severity Reaction Status Date / Time No Known Allergies Allergy Verified 02/10/18 10:11 Surgical - Exam Vital Signs Temp Pulse Resp BP Pulse Ox 98.1 F 80 20 135/86 97 02/10/18 08:49 02/10/18 08:49 02/10/18 08:49 02/10/18 08:49 02/10/18 08:49 - General well developed, no distress - Eyes PERRL - ENT normal pinna - Neck no masses - Respiratory normal expansion - Cardiovascular Rhythm: regular - Abdomen Mild left lower quadrant tenderness Abdomen: soft Results - Labs 02/10/18 09:09 02/10/18 09:09 Abnormal Lab Results - Last 24 Hours (Table) 02/10/18 02/10/18 Range/Units 09:09 09:09 Neutrophils # 7.8 H (1.3-7.7) k/uL Lymphocytes # 0.8 L (1.0-4.8) k/uL Chloride 108 H (98-107) mmol/L Total Bilirubin 1.8 H (0.2-1.3) mg/dL Diabetes panel 02/10/18 Range/Units 09:09 Sodium 138 (137-145) mmol/L Potassium 4.2 (3.5-5.1) mmol/L Chloride 108 H (98-107) mmol/L Carbon Dioxide 22 (22-30) mmol/L BUN 14 (9-20) mg/dL Creatinine 0.86 (0.66-1.25) mg/dL Glucose 90 (74-99) mg/dL Calcium 8.8 (8.4-10.2) mg/dL AST 21 (17-59) U/L ALT 33 (21-72) U/L Alkaline Phosphatase 84 (38-126) U/L Total Protein 7.0 (6.3-8.2) g/dL Albumin 4.0 (3.5-5.0) g/dL Calcium panel 02/10/18 Range/Units 09:09 Calcium 8.8 (8.4-10.2) mg/dL Albumin 4.0 (3.5-5.0) g/dL Pituitary panel 02/10/18 Range/Units 09:09 Sodium 138 (137-145) mmol/L Potassium 4.2 (3.5-5.1) mmol/L Chloride 108 H (98-107) mmol/L Carbon Dioxide 22 (22-30) mmol/L BUN 14 (9-20) mg/dL Creatinine 0.86 (0.66-1.25) mg/dL Glucose 90 (74-99) mg/dL Calcium 8.8 (8.4-10.2) mg/dL Adrenal panel 02/10/18 Range/Units 09:09 Sodium 138 (137-145) mmol/L Potassium 4.2 (3.5-5.1) mmol/L Chloride 108 H (98-107) mmol/L Carbon Dioxide 22 (22-30) mmol/L BUN 14 (9-20) mg/dL Creatinine 0.86 (0.66-1.25) mg/dL Glucose 90 (74-99) mg/dL Calcium 8.8 (8.4-10.2) mg/dL Total Bilirubin 1.8 H (0.2-1.3) mg/dL AST 21 (17-59) U/L ALT 33 (21-72) U/L Alkaline Phosphatase 84 (38-126) U/L Total Protein 7.0 (6.3-8.2) g/dL Albumin 4.0 (3.5-5.0) g/dL - Imaging CT scan - pelvis: report reviewed (Mesenteric mass, diverticulitis) Assessment and Plan Assessment: 30 colitis patient will receive IV antibiotics. Patient's mesenteric mass was worked up further.
[2018-02-10] MEDS: metroNIDAZOLE-NS PMX 500 MG in SALINE 1 100ML.BAG IVPB SCH (17:44)
[2018-02-10] MEDS ORDERED: ATORVASTATIN 40 MG TAB PO SCH (21:00)
[2018-02-11] MEDS: metroNIDAZOLE-NS PMX 500 MG in SALINE 1 100ML.BAG IVPB SCH ×2 (00:03→08:05)
[2018-02-11] MEDS: SODIUM CHLORIDE 0.9% 1,000 ML IV SCH ×2 (00:05→14:01)
[2018-02-11 06:30] VITALS: BP 103/63; PULSE 59; TEMP 98.2
[2018-02-11 07:48] LABS: HCT 37.8 % (39.0-53.0); HGB 12.4 gm/dL (13.0-17.5); MCH 32.3 pg (25.0-35.0); MCHC 32.8 g/dL (31.0-37.0); MCV 98.4 fL (80.0-100.0); Mean Platelet Volume 6.8; Platelet Count 167 k/uL (150-450); RBC 3.84 m/uL (4.30-5.90); RDW 12.7 % (11.5-15.5); WBC 7.8 k/uL (3.8-10.6)
[2018-02-11 08:00] LABS: Potassium 4.3 mmol/L (3.5-5.1); Total Bilirubin 1.3 mg/dL (0.2-1.3); Total Protein 5.5 g/dL (6.3-8.2)
[2018-02-11] MEDS: cefTRIAXone IN SWFI 1,000 MG/10 ML SYRINGE IVP SCH (08:05)
[2018-02-11] MEDS ORDERED: ASPIRIN 81 MG PO SCH (09:00)
--- NOTE | 2018-02-11 09:33 | P.PN ---
Progress Note - Text Progress Note Date: 02/11/18 I discussed the case with Dr. Ng. The patient has active diverticulitis. The patient will undergo CT scan of the chest to evaluate for possible lymph in the thorax. If there is no evidence of lymphoma in the thorax. Patient will be scheduled for laparoscopic biopsy of his mesenteric mass. We will plan to do this as an outpatient next week once his diverticulitis has improved.
[2018-02-11] MEDS ORDERED: RX INFO: IV CONTRAST WAS GIVEN 1 EACH MISC MISCELLANE PRN (10:43)
--- NOTE | 2018-02-11 13:29 | CT ---
EXAMINATION TYPE: CT chest w con DATE OF EXAM: 02/11/2018 COMPARISON: None HISTORY: Abnormal prior CT., Abdomen CT DLP: 548 mGycm, Automated exposure control for dose reduction was used. CONTRAST: Performed injected with 100 mL of Isovue 300. TECHNIQUE: Axial images were obtained at 5 mm thick sections. Reconstructed images are reviewed on [employer] computer in the coronal plane. FINDINGS: Portion of the thyroid visualized is normal. No suspicious lung nodules or focal infiltrates are present. No enlarged mediastinal or hilar adenopathy is evident. The ascending aorta diameter at the level o f the main pulmonary artery is 3.0 cm. The main pulmonary artery diameter at the bifurcation is 2.[address] sections are obtained through the upper abdomen. Abdomen is examined CT abdomen pelvis 01/16. IMPRESSIONS: 1. No suspicious acute changes. 2. No suspicious changes suggest metastatic disease.
--- NOTE | 2018-02-11 16:01 | P.CONS ---
History of Present Illness - Reason for Consult Consult date: 02/11/18 New Mesenteric mass Requesting physician: Anthony Velasco - Chief Complaint Abdominal Discomfort - History of Present Illness This is a pleasant 67-year-old gentleman who presented to [facility] with complaints of left lower quadrant abdominal pain. He also admitted to associated Nausea. During Diagnostic Workl-up he was found to have Diveriticultis and started on antibiotics. The CT scan did however show an incidental finding of mass in the mesenteric around the pancreas area concerning for underlying malignancy. Therefore, Oncology has been consulted. is at bedside this am during evaluation. He is overall feeling better since admission. He has no personal history of cancer, no weight loss, no night sweats. Review of Systems A 14 point review of systems assessed and completed and all negative except HPI Past Medical History Past Medical History: Atrial Fibrillation, Coronary Artery Disease (CAD), Chest Pain / Angina, Hyperlipidemia Additional Past Medical History / Comment(s): Per PMH pt has afib but pt does not recall being told this, arthritis multiple joints, kidney stones which pt passed on his own, ocular migraines, posterior vitreous separation (sees floaters) bilaterally, bronchitis multiple times. History of Any Multi-Drug Resistant Organisms: None Reported Past Surgical History: Heart Catheterization With Stent, Orthopedic Surgery Additional Past Surgical History / Comment(s): 01/05/17 PCI with stent to mid LAD and 1st obtuse marginal branch, R knee arthroscopy, bilateral great toes bone spurs removed, L achilles tendon repair, L undescended testicle surgery. Past Anesthesia/Blood Transfusion Reactions: No Reported Reaction Date of Last Stent Placement:: 01/05/17 Smoking Status: Former smoker - Past Family History Mother Family Medical History: Cancer Additional Family Medical History / Comment(s): Mother of metastatic ovarian cancer at the age of 83 yrs. Father Family Medical History: CVA/TIA Additional Family Medical History / Comment(s): Father had a CVA. He from a [place] at the age of 86yrs. Medications and Allergies Home Medications Medication Instructions Recorded Confirmed Type Aspirin 81 mg PO DAILY #30 01/06/17 02/10/18 Rx Nitroglycerin Sl Tabs [Nitrostat] 0.4 mg SUBLINGUAL Q5M PRN #100 tab 01/06/17 Rx Ondansetron [Zofran ODT] 4 mg PO Q8HR PRN #10 tab 12/18/17 02/10/18 Rx Atorvastatin [Lipitor] 40 mg PO HS 02/10/18 02/10/18 History Ciprofloxacin HCl [Cipro] 500 mg PO BID #14 tablet 02/11/18 Rx metroNIDAZOLE [Flagyl] 500 mg PO Q8HR #21 tab 02/11/18 Rx Allergies Allergy/AdvReac Type Severity Reaction Status Date / Time No Known Allergies Allergy Verified 02/10/18 10:11 Physical Exam Vitals: Vital Signs Temp Pulse Resp BP Pulse Ox 02/11/18 06:29 98.2 F 59 L 18 103/63 95 02/10/18 23:00 98.1 F 67 18 98/58 96 Intake and Output 02/11/18 02/11/18 02/11/18 06:59 14:59 22:59 Other: # Voids 1 General well developed, no distress - Eyes PERRL, EOMI - ENT Head - NC, NT - Neck supple, trachea midline, no adenopathy - Respiratory normal expansion - Cardiovascular Rhythm: regular RR, S1S2 - Abdomen Mild left lower quadrant tenderness soft Results CBC & Chem 7: 02/11/18 06:54 02/11/18 06:54 Labs: Abnormal Lab Results - Last 24 Hours (Table) 02/11/18 02/11/18 Range/Units 06:54 06:54 RBC 3.84 L (4.30-5.90) m/uL Hgb 12.4 L (13.0-17.5) gm/dL Hct 37.8 L (39.0-53.0) % Calcium 8.0 L (8.4-10.2) mg/dL AST 16 L (17-59) U/L Total Protein 5.5 L (6.3-8.2) g/dL Albumin 3.0 L (3.5-5.0) g/dL Microbiology - Last 24 Hours (Table) 02/10/18 11:10 Blood Culture - Preliminary Blood No Growth after [address] scan - abdomen: report reviewed CT scan - chest: report reviewed CT scan - pelvis: report reviewed Assessment and Plan Plan: Assessment and Recommendations: 1. Mesenteric Mass - Incidental Finding: - Recomend tissue Biopsy, likely require surgical specimen with location. Will coordinate with Dr. Das as outpatient - Follow-up after Tissue Diagnosis in office if needed - Obtain CT of chest prior to discharge for full initial stage and/or other area of easier access for tissue biopsy. 2. Diverticulitis - Continue antibiotics per recs primary team Physician Attestation: I have completed the full history and physical of this patient and agree with above dictation by Elizabeth Henderson Np Dictated as a scribe.
--- NOTE | 2018-02-11 17:24 | P.DS ---
Providers Date of admission: 02/10/18 11:08 Expected date of discharge: 02/11/18 Attending physician: Anthony Velasco Consults: 02/10/18 10:58 Consult Physician Stat Consulting Provider: Joseph Shaikh Consult Reason/Comments: Mesenteric mass, diverticulitis Do you want consulting provider notified?: Yes 02/10/18 11:57 Consult Physician Routine Consulting Provider: Tani Ng Consult Reason/Comments: Possible lymphoma Do you want consulting provider notified?: Yes Primary care physician: Stated None Hospital Course: Final Diagnoses: -Acute Diverticulitis -Incidental finding of mesenteric lesion or mass, will get oncology opinion regarding further workup and possible outpatient follow-up for this -Hyperlipidemia continue with the Lipitor -Coronary artery disease continue with the beta fariha statin. Hospital course:This is a pleasant 67-year-old gentleman came in with complaints of left lower quadrant abdominal pain along with nausea found to have diverticular colitis patient is also found to have incidental finding of mass in the mesenteric around the pancreas area concerning for lymphoma. Patient nausea improved patient was started on not really clear liquid diet advance as tolerated patient was started on Rocephin and azithromycin IV fluids. Patient denied any fever chills patient doesn't have any leukocytosis. Evaluated by surgery and oncology. Outpatient Tissue biopsy recommended. Maintained on IV fluids and antibiotics. Significant clinical improvement. Cleared by now consults for discharge. Patient is being discharged home in a stable condition with guarded prognosis. Further outpatient workup regarding mesenteric mass recommended. Exam: Gen.: Sitting up in chair, no acute distress.CV: Regular S1 and S2.LUNGS : Clear to auscultation.ABD: Soft nontender, positive bowel sounds. Neuro: No focal deficits. The impression and plan of care has been dictated as directed. : I performed a history and examination of this patient, discussed the same with the dictator. I agree with the dictator's note ,documented as a scribe. Any additional findings or plans will be noted. Time taken: 35 minutes Patient Condition at Discharge: Stable Plan - Discharge Summary Discharge Rx Participant: No New Discharge Prescriptions: New Ciprofloxacin HCl [Cipro] 500 mg PO BID #14 tablet metroNIDAZOLE [Flagyl] 500 mg PO Q8HR #21 tab Continue Nitroglycerin Sl Tabs [Nitrostat] 0.4 mg SUBLINGUAL Q5M PRN #100 tab PRN Reason: Chest Pain Aspirin 81 mg PO DAILY #30 Ondansetron [Zofran ODT] 4 mg PO Q8HR PRN #10 tab PRN Reason: Nausea Atorvastatin [Lipitor] 40 mg PO HS Discharge Medication List Aspirin 81 mg PO DAILY #30 01/06/17 [Rx] Nitroglycerin Sl Tabs [Nitrostat] 0.4 mg SUBLINGUAL Q5M PRN #100 tab 01/06/17 [ Rx] Ondansetron [Zofran ODT] 4 mg PO Q8HR PRN #10 tab 12/18/17 [Rx] Atorvastatin [Lipitor] 40 mg PO HS 02/10/18 [History] Ciprofloxacin HCl [Cipro] 500 mg PO BID #14 tablet 02/11/18 [Rx] metroNIDAZOLE [Flagyl] 500 mg PO Q8HR #21 tab 02/11/18 [Rx] Follow up Appointment(s)/Referral(s): Tani Ng MD [STAFF PHYSICIAN] - 1 Week (office will call with appointment) Jerome Rivas MD [REFERRING] - 3 Days (office will call with appointment day and time) Joseph Shaikh MD [STAFF PHYSICIAN] - 02/18/18 2:30 pm Ambulatory/Diagnostic Orders: Complete Blood Count w/diff [LAB.AMB] Time Frame: 3 Days, Location: None Selected Patient Instructions/Handouts: Diverticulitis (DC), Diverticulitis Diet (DC) Activity/Diet/Wound Care/Special Instructions: Regarding biopsy please verify with surgery regarding when to hold aspirin, hx of afib Activity as tolerated. Discharge Disposition: HOME SELF-CARE
== END 2018-02-11 14:15 | disposition home or self-care (01) | DRG 392 ==
LOC: EC 08:47 → 4MS4W 11:08
PROVIDERS: ADMIT Internal Medicine; ATTEND Internal Medicine
DX: K57.32 Diverticulitis of large intestine without perforation or abscess without bleeding (principal); R19.07 Generalized intra-abdominal and pelvic swelling, mass and lump; E78.5 Hyperlipidemia, unspecified; I25.10 Atherosclerotic heart disease of native coronary artery without angina pectoris; I48.91 Unspecified atrial fibrillation; K52.9 Noninfective gastroenteritis and colitis, unspecified; Z79.82 Long term (current) use of aspirin; Z82.3 Family history of stroke; Z87.891 Personal history of nicotine dependence; M15.9 Polyosteoarthritis, unspecified; Z87.442 Personal history of urinary calculi; H43.399 Other vitreous opacities, unspecified eye; G43.809 Other migraine, not intractable, without status migrainosus; Z79.899 Other long term (current) drug therapy; Z95.5 Presence of coronary angioplasty implant and graft; Z82.49 Family history of ischemic heart disease and other diseases of the circulatory system; Z80.41 Family history of malignant neoplasm of ovary
CPT/HCPCS: 36415; 71260; 74177; 80053; 81003; 82150; 83690; 85025; 85027; 85610; 85730; 87040; 90732; 96361; 96374; 96375; 99285

== ENCOUNTER → 2018-02-13 | Outpatient (CLI) | payer MEDICARE ==
[2018-02-13 12:37] LABS: Basophils % (A) 1 %; Eosinophils # (A) 0.1 k/uL (0-0.7); Eosinophils % (A) 2 %; HCT 41.1 % (39.0-53.0); HGB 13.1 gm/dL (13.0-17.5); Lymphocytes # (A) 0.8 k/uL (1.0-4.8); Lymphocytes % (A) 18 %; MCH 31.8 pg (25.0-35.0); MCHC 31.8 g/dL (31.0-37.0); MCV 99.8 fL (80.0-100.0); Mean Platelet Volume 6.8; Monocytes # (A) 0.3 k/uL (0-1.0); Monocytes % (A) 6 %; Neutrophils # (A) 3.3 k/uL (1.3-7.7); Neutrophils % (A) 73 %; Platelet Count 218 k/uL (150-450); RBC 4.12 m/uL (4.30-5.90); RDW 12.8 % (11.5-15.5); WBC 4.5 k/uL (3.8-10.6)
[2018-02-13 12:54] LABS: ALT 32 U/L (21-72); AST 21 U/L (17-59); Albumin 3.5 g/dL (3.5-5.0); Alkaline Phosphatase 91 U/L (38-126); Anion Gap 8 mmol/L; Blood Urea Nitrogen 16 mg/dL (9-20); Carbon Dioxide 23 mmol/L (22-30); Chloride 110 mmol/L (98-107); Glucose 132 mg/dL (74-99); Potassium 3.9 mmol/L (3.5-5.1); Sodium 141 mmol/L (137-145); Total Bilirubin 0.5 mg/dL (0.2-1.3); Total Protein 6.3 g/dL (6.3-8.2)
== END | disposition home or self-care (01) ==
LOC: LABWHC1 12:04
PROVIDERS: ATTEND Nurse Practitioner
DX: K57.92 Diverticulitis of intestine, part unspecified, without perforation or abscess without bleeding (principal); R22.2 Localized swelling, mass and lump, trunk
CPT/HCPCS: 36415; 80053; 85025

== ENCOUNTER → 2018-02-21 | Outpatient (CLI) | payer MEDICARE ==
[2018-02-21 16:53] LABS: Blood Urea Nitrogen 18 mg/dL (9-20)
--- NOTE | 2018-02-22 21:27 | CT ---
EXAMINATION TYPE: CT abdomen pelvis w con DATE OF EXAM: 02/21/2018 COMPARISON: 02/10/2018 INDICATION: Follow up diverticulitis. DLP: 1091.9 mGycm, Automated exposure control for dose reduction was used. CONTRAST: 100 mL of Isovue M300. Study performed with Oral Contrast TECHNIQUE: Axial images were obtained from above the diaphragm to the pubic rami in the axial plane a t 5 mm thick sections. Reconstructed images are reviewed on the computer in the coronal plane. FINDINGS: Limited CT sections are obtained the lung bases. The lung bases are clear. CT ABDOMEN: Liver: Normal Spleen: Normal Pancreas: Normal Adrenal glands: The adrenal glands are normal. Gallbladder: Normal Kidneys: No masses are evident. No hydronephrosis is present. No cysts are present. Delayed images were obtained through the kidneys, which remain unremarkable. Aorta: Vascular calcification is within the aorta. Inferior vena cava: Normal. CT PELVIS: Loops of bowel within the abdomen and pelvis are normal. There are loops of bowel which are incom pletely distended or lack oral contrast limiting their evaluation. Scattered diverticuli are present. Suspicious inflammatory changes are not identified. No suspicious wall thickening is evident. Previo us inflammatory changes adjacent to the distal colon are absent. Previous acute diverticulitis appear s resolved. Appendix: No periappendiceal inflammatory changes are evident. The appendix however has some minimal wall enhancement within its midportion and measures 0.9 cm which is slightly prominent. This is not d ilated to be suspicious for acute appendicitis. Clinical evaluation is recommended. Urinary bladder: Normal. Genitourinary structures: Prostate is prominent. Osseous structures: No suspicious lytic or sclerotic lesions. IMPRESSIONS: 1. Previous diverticulitis has resolved adjacent to the sigmoid colon. 2. Minimal wall enhancement of the slightly prominent appendix. This is a change from prior study. Cl inical observation for appendicitis is recommended.
== END | disposition home or self-care (01) ==
LOC: RADCTMAIN 15:29
PROVIDERS: ATTEND Surgery
DX: K57.32 Diverticulitis of large intestine without perforation or abscess without bleeding (principal)
CPT/HCPCS: 82565; 84520; 74177; 36415; Q9967

== ENCOUNTER → 2018-04-04 | Outpatient (CLI) | payer MEDICARE ==
[2018-04-04 17:19] LABS: Albumin 4.4 g/dL (3.5-5.0); Calcium 9.6 mg/dL (8.4-10.2); Potassium 4.6 mmol/L (3.5-5.1); Total Bilirubin 0.8 mg/dL (0.2-1.3); Total Protein 7.5 g/dL (6.3-8.2)
== END ==
LOC: LABWHC1 16:32
PROVIDERS: ATTEND Internal Medicine Clinical Cardiac Electrophysiology
DX: I25.10 Atherosclerotic heart disease of native coronary artery without angina pectoris (principal); E78.5 Hyperlipidemia, unspecified
CPT/HCPCS: 36415; 80053; 80061

== ENCOUNTER → 2018-06-02 | Outpatient (CLI) | payer MEDICARE ==
--- NOTE | 2018-06-02 12:38 | CT ---
EXAMINATION TYPE: CT abdomen pelvis w con DATE OF EXAM: 06/02/2018 COMPARISON: CT abdomen pelvis February 21, 2018 and older studies HISTORY: diverticulitis and mesenteric mass. CT DLP: 1236.90 mGycm, Automated Exposure Control for Dose Reduction was Utilized. CONTRAST: CT scan of the abdomen and pelvis is performed with oral and with IV Contrast, patient injected with 100 mL of Isovue 300. FINDINGS: LUNG BASES: There is bibasilar linear scarring and/or atelectasis. LIVER/GB: No significant abnormality is appreciated. PANCREAS: No significant abnormality is seen. SPLEEN: No significant abnormality is seen. ADRENALS: No significant abnormality is seen. KIDNEYS: Subcentimeter low dense lesion medially upper pole level left kidney seen best series 7 imag e 30 is too small to further characterize but is presumed benign. BOWEL: The oral contrast reaches level of proximal transverse colon. There is no suspicious small or large bowel dilatation. A few diverticula are seen in the proximal sigmoid colon without CT evidence for acute diverticulitis. PROSTATE/SEMINAL VESICLES: Prostate gland is stable and upper limits of normal in size. LYMPH NODES: No greater than 1cm abdominal or pelvic lymph nodes are appreciated. OSSEOUS STRUCTURES: No significant abnormality is seen. OTHER: There is redemonstration of abnormal soft tissue or ill-defined soft tissue mass centered in t he right-sided mesentery just inferior to the pancreatic head encasing mesenteric vessels which is ne w from 2014 CT not significantly changed from February 10, 2018 CT, inferior right component measures 3 .6 x 4.6 cm on axial image 41 with superior and central extension encasing portion of SMA. I do suspe ct lesion is slightly larger as there is better visualization of encased SMA axial image 31 noted for reference. Lesion is centered anterior to the SMV. There are persistent prominent but subcentimeter adjacent lymph nodes. IMPRESSION: Worsening right sided mesenteric mass with adjacent ill-defined fat stranding and subcent imeter adenopathy. Consider neoplasm such as lymphoma or GIST.
== END ==
LOC: RADCTMAIN 10:23
PROVIDERS: ATTEND Surgery
DX: R19.07 Generalized intra-abdominal and pelvic swelling, mass and lump (principal); K57.33 Diverticulitis of large intestine without perforation or abscess with bleeding
CPT/HCPCS: 82565; 84520; 74177; 36415; Q9967

== ENCOUNTER 2018-06-23 06:44 | Day surgery (SDC) | payer MEDICARE ==
[2018-06-23] MEDS ORDERED: ALPRAZolam 0.25 MG TAB PO STA (08:26)
[2018-06-23 08:30] VITALS: PULSE 55; RESP 20; TEMP 97.7
[2018-06-23 08:32] LABS: Platelet Count 185 k/uL (150-450)
[2018-06-23 08:42] LABS: INR 0.9 (<1.2); Prothrombin Time 9.8 sec (9.0-12.0)
[2018-06-23 09:18] VITALS: BP 138/80
--- NOTE | 2018-06-23 10:06 | CT ---
EXAMINATION TYPE: CT discontinued procedure DATE OF EXAM: 06/23/2018 COMPARISON: CT 06/02/2018 HISTORY: Abdominal mass CT DLP: 431 mGycm Automated exposure control for dose reduction was used. FINDINGS: Suitable approach to patient's abdominal mass is not evident. Following discussion with the patient, biopsy is deferred at this time. Recommend oncology consult. IMPRESSION: DISCONTINUED CT BIOPSY.
== END 2018-06-23 10:00 | disposition home or self-care (01) ==
LOC: RADPROMAIN 06:44
PROVIDERS: ATTEND Surgery
DX: R19.00 Intra-abdominal and pelvic swelling, mass and lump, unspecified site (principal); Z53.8 Procedure and treatment not carried out for other reasons
CPT/HCPCS: 36415; 76380; 85049; 85610

== ENCOUNTER → 2018-07-05 | Outpatient (CLI) | payer MEDICARE ==
--- NOTE | 2018-07-07 11:43 | PE ---
EXAMINATION TYPE: PET CT fusion skull to thigh DATE OF EXAM: 07/05/2018 COMPARISON: CT chest February 11, 2018. CT abdomen and pelvis June 02, 2018 and older CTs HISTORY: Lymphadenopathy, initial study. Prior abnormal CT's. TECHNIQUE: Following the intravenous administration of 13.78 mCi of F-18 FDG, whole body images are performed from the skull base to the midthigh. Images are reviewed on the computer in the coronal, a xial, and sagittal planes. Reconstructed rotating images are created on independent workstation and reviewed on the computer. A localization a noncontrast CT is performed in conjunction with the PET scan. SCAN: Initial Scan FINDINGS: SKULL BASE AND NECK: No suspicious hypermetabolic uptake is present. CHEST, MEDIASTINUM, AND HILAR REGION: No suspicious hypermetabolic uptake is seen. ABDOMEN AND PELVIS: There is persistent right mid abdominal hypermetabolic mesenteric mass or lymph n ode measuring 4.5 x 3.7 cm axial image 172, max SUV is 6.07. This mass is new from 2014 CT. This mass appears more infiltrative surrounding smaller mesenteric arterial branches and draining mesenteric v ein in the right midabdomen just inferior to the head of pancreas. There are some smaller adjacent ly mph nodes without definitive abnormal hypermetabolic uptake. Remainder of abdomen and pelvis shows no additional suspicious enlarged lymph node or hypermetabolic masses. OSSEOUS STRUCTURES: No suspicious hypermetabolic uptake is seen. OTHER CT: There are suspected to coronary stents in the LAD and left circumflex distribution redemons trated. Mild wade mesentery appearance remains present unchanged from 2014 study with additional prominent b ut subcentimeter mesenteric lymph nodes. Incidental normal-appearing appendix is seen. Some diverticula in the left and sigmoid colon are pres ent. Small fat-containing right inguinal hernia is redemonstrated. Disc space narrowing L2-L3 and L5-S1 level with spurring is present. There is facet arthropathy in th e lower lumbar spine. IMPRESSION: Suspicious hypermetabolic uptake right mid abdominal mass worrisome for neoplasm in parti cular lymphoma given wade mesentery appearance back to 2014. No additional hypermetabolic masses or adenopathy identified to be available for safer tissue sampling.
== END | disposition home or self-care (01) ==
LOC: RADPETMAIN 11:19
PROVIDERS: ATTEND Internal Medicine Hematology & Oncology
DX: R59.0 Localized enlarged lymph nodes (principal)
CPT/HCPCS: 78815; A9552

== ENCOUNTER → 2018-12-20 | Outpatient (CLI) | payer MEDICARE ==
--- NOTE | 2018-12-23 18:13 | PE ---
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 Images are reviewed on the computer in the coronal, a xial, and sagittal planes. Reconstructed rotating images are created on independent workstation and reviewed on the computer. A localization and attenuation correction CT is performed in conjunction with the PET scan. Glucose level: 101 mg/dL CTDI: 5.05 mGy DLP: 508.35 mGy-cm COMPARISON: 07/05/2018. FINDINGS: PET: Physiologic FDG uptake within the neck and chest. Redemonstrated right-sided mesenteric mass. This mass extends up to lie in front of the inferior aspe ct of the pancreatic head and extends inferiorly along some of the mesenteric vessels to the level of the lower pole of the kidneys. Average liver SUV: 2.3. Superiorly, this measures 4.1 x 2.7 cm versus 4.6 x 3.0 cm, previously. More inferiorly, this measures 3.6 x 2.9 cm versus 4.5 x 3.7 cm, previously. There is no significant residual FDG uptake, max SUV 1.6 versus 6.1, previously. Overall wade mesent hillary appearance centrally in the abdomen is unchanged. Variable moderate segmental bowel uptake likely physiologic. Otherwise, physiologic FDG uptake within the abdomen and pelvis. Focal mild FDG uptake (Max SUV 2.2) in the region of the L3-L4 intraspinous ligament. 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 ATTENUATION CORRECTION CT: Trace mucosal thickening floors of the maxillary sinuses. No cervical lymphadenopathy by CT size crit eria. Heart upper limits of normal in size without pericardial effusion. Extensive coronary vessel calcific ations are present. Aorta normal caliber with conventional arch vessel branching anatomy. No thoraci c lymphadenopathy by CT size criteria. Mild centrilobular emphysema. There is a hazy atelectasis. No consolidation or pleural effusion. Adrenal glands are clear. No dilated small bowel, free fluid, or free air. Normal appendix. Scattere d [id number] stool in the right side of the colon. Left-sided colonic diverticulosis. No deisi lonic inflammatory change. Bladder is urine distended. Prostate gland measures 5.0 cm wide. No abnormal fluid collection in the pelvis or pelvic lymphadenopathy. Bones: Degenerative disc disease mid to lower lumbar spine. Cervical spondylosis. Advanced degenerati ve disc disease at L2-L3 with grade 1 retrolisthesis. IMPRESSION: 1. Decreasing size of the right-sided mesenteric mass (4.1 cm now versus 4.6 cm, previously). However , the lack of any significant FDG suggests complete metabolic response. Stable adjacent wade mesente ry. No additional sites of lymphomatous involvement identified. 2. Incidental: Left-sided colonic diverticulosis, COPD with mild emphysema, CAD, and prostatomegaly ( 5.0 cm).
== END | disposition home or self-care (01) ==
LOC: RADPETMAIN 09:54
PROVIDERS: ATTEND Internal Medicine Hematology & Oncology
DX: K57.30 Diverticulosis of large intestine without perforation or abscess without bleeding (principal); R19.00 Intra-abdominal and pelvic swelling, mass and lump, unspecified site; J43.9 Emphysema, unspecified; I25.10 Atherosclerotic heart disease of native coronary artery without angina pectoris; N40.0 Benign prostatic hyperplasia without lower urinary tract symptoms; C82.03 Follicular lymphoma grade I, intra-abdominal lymph nodes
CPT/HCPCS: 78815; A9552

== ENCOUNTER → 2019-01-14 | Outpatient (CLI) | payer MEDICARE ==
--- NOTE | 2019-01-14 10:09 | US ---
EXAMINATION TYPE: US venous doppler duplex UE LT DATE OF EXAM: 01/14/2019 COMPARISON: NONE CLINICAL HISTORY: R22.32 SWELLING LT UPPER LIMB. Left arm swelling SIDE PERFORMED: Left Grayscale, color doppler, spectral doppler imaging performed of the deep veins of the upper extremiti es. There is normal flow, compressibility and vascular waveforms of the deep venous system. Left Arm: Appears negative for DVT, cephalic vein not seen at this time Thrombus seen within basilic vein IMPRESSION: No sonographic evidence of deep venous thrombosis, however the examination is positive for superficia l venous thrombosis within the basilic vein. Cephalic vein is not seen at this time.
== END | disposition home or self-care (01) ==
LOC: RADUSWWP 09:08
PROVIDERS: ATTEND Internal Medicine Hematology & Oncology
DX: I82.612 Acute embolism and thrombosis of superficial veins of left upper extremity (principal)

== ENCOUNTER → 2019-05-27 | Outpatient (CLI) | payer MEDICARE ==
[2019-05-27 10:19] LABS: HCT 39.1 % (39.0-53.0); MCHC 33.4 g/dL (31.0-37.0); MCV 101.9 fL (80.0-100.0); Mean Platelet Volume 7.6; Platelet Count 176 k/uL (150-450); RBC 3.83 m/uL (4.30-5.90); RDW 12.2 % (11.5-15.5)
[2019-05-27 10:28] LABS: Potassium 4.5 mmol/L (3.5-5.1)
== END | disposition home or self-care (01) ==
LOC: LABPAT 09:40
PROVIDERS: ATTEND Internal Medicine Interventional Cardiology
DX: Z01.812 Encounter for preprocedural laboratory examination (principal); I25.10 Atherosclerotic heart disease of native coronary artery without angina pectoris
CPT/HCPCS: 36415; 80051; 82565; 84520; 85027

== ENCOUNTER 2019-05-29 06:11 | Day surgery (SDC) | payer MEDICARE ==
[~2019-05-29 06:11] MED LIST: ALPRAZolam 0.25 MG TAB PO PRN; ALPRAZolam 0.5 MG TAB PO PRN; NITROGLYCERIN SL TABS 0.4 MG TAB SUBLINGUAL PRN; SODIUM CHLORIDE 0.9% 1,000 ML in EMPTY BAG 1 BAG IV ONE
[2019-05-29] MEDS ORDERED: ASPIRIN 325 MG TAB PO ONE (07:00)
[2019-05-29] MEDS ORDERED: VERAPAMIL 2.5 MG/ML 2 ML AMP ONE (07:28)
[2019-05-29] MEDS ORDERED: LIDOCAINE 1% INJ 10MG/ML (20 ML MDV) ONE (07:28)
[2019-05-29] MEDS ORDERED: fentaNYL (PF) 50 MCG/ML 2 ML AMP ONE (07:29)
[2019-05-29] MEDS ORDERED: HEPARIN SODIUM 1,000 UN/ML (10ML VL) ONE (07:29)
[2019-05-29] MEDS ORDERED: fentaNYL (PF) 50 MCG/ML 2 ML AMP IV ONE (07:36)
[2019-05-29] MEDS ORDERED: LIDOCAINE 1% INJ 10MG/ML (20 ML MDV) SQ ONE (07:41)
[2019-05-29] MEDS ORDERED: VERAPAMIL SYRINGE (5 MG/10 ML) INTRAARTER ONE (07:42)
[2019-05-29] MEDS ORDERED: CLOPIDOGREL 75 MG TAB ONE (07:54)
[2019-05-29] MEDS ORDERED: BIVALIRUDIN BOLUS 250 MG/50 ML IV ONE (07:55)
[2019-05-29] MEDS ORDERED: BIVALIRUDIN 250 MG in SODIUM CHLORIDE 0.9% 50 ML IV ONE (07:56)
[2019-05-29] MEDS ORDERED: CLOPIDOGREL 75 MG TAB PO ONE (07:57)
[2019-05-29] MEDS ORDERED: IOPAMIDOL-370 125ML BTL INJ ONE (08:05)
[2019-05-29] MEDS ORDERED: NITROGLYCERIN 1000MCG/10ML SYRINGE INTRACORON ONE (08:11)
[2019-05-29] MEDS ORDERED: IOPAMIDOL-370 100ML BTL INJ ONE (08:15)
[2019-05-29] MEDS ORDERED: ZOLPIDEM 5 MG TAB PO PRN (08:35)
[2019-05-29] MEDS ORDERED: NITROGLYCERIN SL TABS 0.4 MG TAB SUBLINGUAL PRN (08:35)
[2019-05-29] MEDS ORDERED: ATROPINE SULFATE 0.1 MG/ML 10ML SYRINGE IV PRN (08:35)
[2019-05-29] MEDS ORDERED: RX INFO: IV CONTRAST WAS GIVEN 1 EACH MISC MISCELLANE PRN (08:35)
[2019-05-29] MEDS ORDERED: MAG HYDROX/AL HYDROX/SIMETH 30 ML CUP PO PRN (08:35)
[2019-05-29] MEDS ORDERED: SODIUM CHLORIDE 0.9% 1,000 ML IV SCH (08:45)
--- NOTE | 2019-05-29 08:51 | CC ---
CARDIAC CATHETERIZATION REPORT Mr. Edwards is a 68-year-old male with known history of hyperlipidemia, history of coronary artery disease, status post stenting of the left circumflex and the LAD in December of 2016 who has been complaining of symptoms of exertional chest discomfort and abnormal myocardial perfusion imaging involving the inferior wall. He was evaluated by Dr. Verdugo, recommendation was made regarding cardiac catheterization. The procedures, risks, and complications were discussed with the patient who is in full understanding and agreement. PROCEDURE: Patient was brought to laboratory aide in a fasting semi-sedated state after receiving fentanyl and Benadryl and achieving moderate conscious sedated state. Using standard anesthesia and Seldinger technique, a 6-Lebanese sheath was introduced in the right radial artery. Selective right and left coronary angiography performed using 5- Lebanese 3.5 bend right and left Pk catheter. Multiple views of the coronary artery including hemiaxial views were obtained. Following that, angioplasty and stenting of the right coronary artery was performed. Following that, using the 6-Lebanese FR4 guiding catheter, left ventricular end-diastolic pressure was calculated. Following that, catheter and sheaths were removed. Hemostasis was obtained with deployment of a TR band. There was no immediate complication. Patient is returned to his room in stable condition. FINDINGS: LEFT MAIN: This is a large-sized vessel, bifurcating into left circumflex, left anterior descending artery. Left main coronary artery has a 10% to 20% plaque proximally. The rest of the vessel has no high-grade stenosis. LEFT ANTERIOR DESCENDING ARTERY: This is a large-sized vessel, reaching toward the apex, tapers down distal third, giving rise to 2 small diagonal branches. The stented segment in the mid LAD is patent with no evidence of in-stent restenosis. There is mild plaque proximally of 20% as well as in the mid segment. The rest of the vessel has no high-grade stenosis. LEFT CIRCUMFLEX: This is a nondominant large size vessel, giving rise to a large obtuse marginal branch. The left circumflex proximally has a 20% to 30% plaque. The mid circumflex and obtuse marginal branch stented segment are patent with no evidence of obstructive disease. RIGHT CORONARY ARTERY: This is a large dominant vessel bifurcating distally into PDA and posterolateral segment and branches at the bifurcation of the PDA and PLV. There is 90% stenosis. There is diffuse intimal disease in the mid segment up to 70%- 80%. LEFT VENTRICULOGRAM: Left ventriculogram was not performed. HEMODYNAMICS: There was no gradient across the aortic valve. The left ventricular end- diastolic pressure was 12-14 mmHg. CONCLUSION: 1. Critical stenosis involving the distal right coronary artery and in the mid segment in a long segment. 2. Patent stent of the left anterior descending artery and the left circumflex. 3. Mild obstructive disease in the proximal left anterior descending artery and left circumflex. RECOMMENDATION: In view of finding anatomy, I recommend proceeding with angioplasty and stenting. The procedures, risks, and complications were discussed with the patient who is in full understanding and agreement. MMODL / IJN: [id number] / LEESA
--- NOTE | 2019-05-29 08:51 | PTCA ---
PERCUTANEOUSTRANS CORORONARY ANGIOGRAPHY Mr. Edwards is a 68-year-old male with a known history of coronary artery disease who presented with symptoms of exertional chest discomfort and a positive stress test with inducible ischemia in the inferior wall. In view of that, recommendation was made regarding angioplasty and stenting. The procedure as well as the risks and the complications were discussed with the patient who is in full understanding and agreement. PROCEDURE: A 6-Wallisian FR4 guiding catheter introduced in the system after cannulating the right coronary ostium, a 0.014 balanced medium weight J-wire was advanced across the lesion positioned distally then a 2.25 x 15 mm Trek balloon was advanced, one inflation at 10 atmospheres was done. Following that the balloon was removed and a 2.5 x 38 mm Xience Cassy stent was deployed postdilated at 16 atmospheres. Following that, the balloon was removed and a 2.5 x 38 mm Xience Cassy stent was deployed proximal to the first one and postdilated at 18 atmospheres. After the last inflation after appropriate wait, the balloon and the guidewire were withdrawn back in the guiding catheter. Images were obtained, repeated. Those images reveal stable successful stenting. At that point, the 6-Wallisian FR4 was used to cross the aortic valve and a left ventricular end-diastolic pressure was calculated. Following that catheter and sheaths were removed. Hemostasis was obtained with deployment of a TR band. There was no immediate complication. Patient was returned to his room in stable condition. Of note, the patient had chest discomfort and EKG changes with the inflation that resolved at the end of the procedure. He received Angiomax per protocol as well as oral loading dose of clopidogrel. RESULTS: Successful stenting of a long segment of the right coronary artery with reduction of stenosis from 90% to 0%. RECOMMENDATION: Patient to continue on aspirin, Plavix and statin. The importance of dual antiplatelet treatment were discussed with the patient and his family and they are in full understanding and agreement. Duration of procedure is 30 minutes. MMODL / IJN: [id number] /
--- NOTE | 2019-05-29 08:57 | LTR ---
May 28, 2019 Re: Bon Edwards Dear Dr. Rivas: I had the opportunity to perform cardiac catheterization and coronary angioplasty on Mr. Edwards at [facility] on the 29 of May. A full copy of the procedure note will be forwarded to you. In brief, he was found to have critical stenosis involving a long segment of the mid and distal right coronary artery, underwent successful stenting of that vessel. I am hopeful that this procedure will stabilize his status. Thank you again for allowing me the opportunity to participate in his care. Please feel free to call for any questions. Sincerely yours, Adriana Goncalves MD MMXIAOL / JESSEN: [id number] /
[2019-05-29] MEDS ORDERED: ASPIRIN 81 MG PO SCH (09:00)
[2019-05-29] MEDS: ISOSORBIDE MONONITRATE ER 30 MG TAB.ER.24H PO SCH (09:15)
[2019-05-29 14:22] VITALS: BMI 27.9
[2019-05-29] MEDS ORDERED: ACETAMINOPHEN TAB 325 MG TAB PO STA ×2 (15:32→21:02)
[2019-05-29] MEDS ORDERED: ATORVASTATIN 40 MG TAB PO SCH (21:00)
[2019-05-29] MEDS ORDERED: METOPROLOL SUCCINATE (ER) 25 MG TAB.ER.24H PO SCH (21:00)
[2019-05-30 06:39] LABS: Calcium 8.7 mg/dL (8.4-10.2); Potassium 4.3 mmol/L (3.5-5.1)
[2019-05-30] MEDS: ISOSORBIDE MONONITRATE ER 30 MG TAB.ER.24H PO SCH (08:54)
[2019-05-30] MEDS ORDERED: CLOPIDOGREL 75 MG TAB PO SCH (09:00)
[2019-05-30] MEDS ORDERED: ASPIRIN 81 MG PO SCH (09:00)
[2019-05-30 10:11] VITALS: BP 118/72; PULSE 66; RESP 16; TEMP 97.6
--- NOTE | 2019-05-30 10:39 | PN ---
PROGRESS NOTE Mr. Edwards is a 68-year-old male known history of coronary artery disease who is followed by Dr. Verdugo who presented with symptoms of progressive chest discomfort and abnormal myocardial perfusion imaging, underwent cardiac catheterization, was found to have critical stenosis in the RCA, underwent stenting of that vessel. He is doing well this morning, ambulating without difficulty, denying any chest pain, dizziness or palpitation. Continues to be on aspirin once a day, Lipitor 40 mg daily, Plavix 75 mg daily, isosorbide mononitrate 30 mg daily, metoprolol succinate 25 mg daily. PHYSICAL EXAMINATION: Blood pressure 103/70 with a heart rate in the 60s. LUNGS: Clear. HEART: Regular rate and rhythm S1, S2. No S3 with systolic ejection murmur heard at the base. No diastolic murmur. No rub. ABDOMEN: Soft, nontender. EXTREMITIES: No edema. Right radial pulse is intact. LAB DATA: Lab data revealed BUN and creatinine 14 and 1.05, potassium 4.3. EKG revealed no acute changes. IMPRESSION: 1. Status post stenting of the RCA. 2. Status post stenting of the LAD and left circumflex in 2017. 3. Hypertension. RECOMMENDATIONS: Patient will be discharged home today and followed as an outpatient with Dr. Verdugo. MMODL / IJN: [id number] /
== END 2019-05-30 11:15 | disposition home or self-care (01) ==
LOC: CATHCVL 06:11 → 3SCARD 08:30 → CATHCVL 05-30 11:15
PROVIDERS: ATTEND Internal Medicine Interventional Cardiology
DX: I25.118 Atherosclerotic heart disease of native coronary artery with other forms of angina pectoris (principal); I10 Essential (primary) hypertension; E78.5 Hyperlipidemia, unspecified; E78.00 Pure hypercholesterolemia, unspecified; R01.1 Cardiac murmur, unspecified; C85.90 Non-Hodgkin lymphoma, unspecified, unspecified site; Z95.5 Presence of coronary angioplasty implant and graft; Z79.899 Other long term (current) drug therapy; Z79.82 Long term (current) use of aspirin; Z87.442 Personal history of urinary calculi; Z79.02 Long term (current) use of antithrombotics/antiplatelets; Z82.49 Family history of ischemic heart disease and other diseases of the circulatory system
CPT/HCPCS: 93458; 80048; C9600; C1769; C1887; C1725; C1874; J2001; J3010; J0583; Q9967 ×2

== ENCOUNTER → 2019-06-27 | Outpatient (CLI) | payer MEDICARE | LOC: RADPETMAIN 11:03 | PROVIDERS: ATTEND Internal Medicine Hematology & Oncology | DX: Z53.9 Procedure and treatment not carried out, unspecified reason (principal) ==

== ENCOUNTER → 2019-07-03 | Outpatient (CLI) | payer MEDICARE ==
--- NOTE | 2019-07-05 12:52 | PE ---
Nuclear medicine PET/CT HISTORY: Lymphoma, subsequent Patient received 11.7 mCi F-18 FDG intravenously in delayed scanning was performed from the skull bas e to the mid thighs. An attenuation correction and localization CT scan was performed. Correlation to prior nuclear medicine PET/CT dated 12/20/2018 Neck and chest: No suspicious hypermetabolic uptake. There is no evident cervical, supraclavicular, m ediastinal, axillary, or hilar adenopathy. Coronary artery calcifications are present. There is no ev ident lung mass, no pleural effusion. ABDOMEN: There is no retroperitoneal adenopathy. Mesenteric soft tissue is somewhat ill-defined and s hows a similar appearance to prior exam, there is no suspicious hypermetabolic uptake. No pelvic cindy opathy or ascites. No other significant changes. Osseous structures show no suspicious hypermetabolic uptake. Uptake in the right shoulder region grea ter than left shoulder is felt likely to be physiologic. IMPRESSION: Essentially stable exam. Recurrence is not evident. Uptake in the right shoulder felt lik josefina to be physiologic muscular uptake.
== END | disposition home or self-care (01) ==
LOC: RADPETMAIN 11:47
PROVIDERS: ATTEND Internal Medicine Hematology & Oncology
DX: C82.03 Follicular lymphoma grade I, intra-abdominal lymph nodes (principal)
CPT/HCPCS: 78815; A9552

== ENCOUNTER 2019-07-20 06:27 | Day surgery (SDC) | payer MEDICARE ==
[2019-07-15 15:41] VITALS: BMI 27.7
[~2019-07-20 06:27] MED LIST changes: -ALPRAZolam 0.25 MG TAB PO PRN; -ALPRAZolam 0.5 MG TAB PO PRN; +DEXAMETHASONE SOD PHOSPHATE 10 MG/ML 1 ML VIAL IV ONE; +HEPARIN SODIUM,PORCINE 5,000 UNIT/ML 1 ML VIAL SQ ONE; +HYDROmorphone 0.5 MG/0.5 ML SYRINGE IVP PRN; +LACTATED RINGERS 1,000 ML IV SCH; +LIDOCAINE 1% (10MG/ML) FOR IV START INTRADERMA PRN; -NITROGLYCERIN SL TABS 0.4 MG TAB SUBLINGUAL PRN; +ONDANSETRON 4 MG/2 ML VIAL IVP ONE; +Pre Op ABX Message 1 EACH MISC MISCELLANE ONE; -SODIUM CHLORIDE 0.9% 1,000 ML in EMPTY BAG 1 BAG IV ONE
[2019-07-20 07:32] VITALS: TEMP 98.2
[2019-07-20] MEDS ORDERED: BUPIVACAINE (PF) 0.25% 30 ML VIAL SQ ONE ×2 (07:41→08:15)
[2019-07-20] MEDS ORDERED: LIDOCAINE 1% INJ 10MG/ML (20 ML MDV) ONE (07:44)
[2019-07-20] MEDS ORDERED: ceFAZolin 1,000 MG VIAL ONE (07:44)
[2019-07-20] MEDS ORDERED: PROPOFOL 10 MG/ML 20 ML VIAL IV ONE (07:44)
[2019-07-20] MEDS ORDERED: fentaNYL (PF) 50 MCG/ML 2 ML AMP ONE (07:44)
[2019-07-20] MEDS ORDERED: MIDAZOLAM 2 MG/2 ML VIAL ONE (07:44)
--- NOTE | 2019-07-20 07:56 | P.GSHP ---
History of Present Illness H&P Date: 07/20/19 Chief Complaint: Right forearm skin lesion This a 68-year-old male who presents today for wide local excision of a suspicious skin lesion of the right forearm. Patient has a 3 cm raised erythematous inflamed skin lesion which is suspicious for squamous cell carcinoma. Past Medical History Past Medical History: Atrial Fibrillation, Coronary Artery Disease (CAD), Chest Pain / Angina, Hyperlipidemia, Osteoarthritis (OA) Additional Past Medical History / Comment(s): a-fib, hx. kidney stones , ocular migraines, posterior vitreous separation (sees floaters)., dx. w/mesenteric mass 2018 which ended up being non-Hodgkin's lymphoma-tx. w/chemo & has retuxin infusion q 2 months, Diverticulitis, squamous cell skin cancer right arm., Hx of blood clot in arm with IV chemo. History of Any Multi-Drug Resistant Organisms: None Reported Past Surgical History: Heart Catheterization With Stent, Orthopedic Surgery Additional Past Surgical History / Comment(s): 01/05/17 PCI with stent to mid LAD and 1st obtuse marginal branch, R knee arthroscopy, bilateral great toes bone spurs removed, L achilles tendon repair, L undescended testicle surgery., Heart Cath with stent May 2019. Past Anesthesia/Blood Transfusion Reactions: No Reported Reaction Date of Last Stent Placement:: 05/29/2019 Past Psychological History: No Psychological Hx Reported Additional Psychological History / Comment(s): . Smoking Status: Former smoker Past Alcohol Use History: Occasional Additional Past Alcohol Use History / Comment(s): Pt started smoking in 1966 and quit in 1978. Past Drug Use History: None Reported - Past Family History Mother Family Medical History: Cancer Additional Family Medical History / Comment(s): Mother of metastatic ovarian cancer at the age of 83 yrs. Father Family Medical History: CVA/TIA Additional Family Medical History / Comment(s): Father had a CVA. He from a [place] at the age of 86yrs. Medications and Allergies Home Medications Medication Instructions Recorded Confirmed Type Aspirin 81 mg PO DAILY #30 01/06/17 07/20/19 Rx Atorvastatin [Lipitor] 40 mg PO HS 02/10/18 07/20/19 History Metoprolol Succinate (ER) [Toprol 25 mg PO HS 05/27/19 07/20/19 History XL] Rituxan 1 dose IV Q60D 05/27/19 07/20/19 History Clopidogrel [Plavix] 75 mg PO DAILY #90 tab 05/30/19 07/20/19 Rx Multivitamins, Thera [Multivitamin 1 tab PO DAILY 07/15/19 07/15/19 History (formulary)] Allergies Allergy/AdvReac Type Severity Reaction Status Date / Time No Known Allergies Allergy Verified 07/20/19 06:48 Surgical - Exam Vital Signs Temp Pulse Resp BP Pulse Ox 98.2 F 52 L 18 133/77 96 07/20/19 06:45 07/20/19 06:45 07/20/19 06:45 07/20/19 06:45 07/20/19 06:45 - General well developed, well nourished - Eyes PERRL - ENT normal pinna - Neck no masses - Respiratory normal expansion - Cardiovascular Rhythm: regular - Abdomen Abdomen: soft, non tender - Integumentary 3 cm raised erythematous skin lesion of the right upper forearm Assessment and Plan Assessment: Right forearm skin lesion. We'll perform excision.
[2019-07-20] MEDS ORDERED: SODIUM CHLORIDE 0.9% 100 ML with ceFAZolin 2,000 MG IV ONE ×2 (08:14)
[2019-07-20 08:58] VITALS: BP 122/76; RESP 18
[2019-07-20 09:19] VITALS: PULSE 51
--- NOTE | 2019-08-17 15:08 | P.OP ---
Date of Procedure: 07/20/19 Preoperative Diagnosis: Right forearm squamous cell carcinoma Postoperative Diagnosis: Right forearm squamous cell carcinoma Procedure(s) Performed: Wide local excision of right forearm squamous cell carcinoma Anesthesia: TWAN Surgeon: Joseph Shaikh Estimated Blood Loss (ml): 5 Pathology: other (Right forearm squamous cell carcinoma) Condition: stable Disposition: PACU Description of Procedure: The patient's placed the operative table in the supine position. He received IV sedation. His right forearm was prepped and draped in sterile fashion. The patient had a large inflammatory skin lesion in the right forearm. The area was anesthetized 1% local Xylocaine. Using a 15 blade elliptical skin incision was made around the lesion and the lesion was then dissected with left cautery. The Bovie hemostasis. The lesion measured approximately 5 x 4 cm. This is closed interrupted 3-0 nylon suture. Steri-Strips applied. Patient top she will was sent to recovery in stable condition.
== END 2019-07-20 09:55 | disposition home or self-care (01) ==
LOC: OR 06:27
PROVIDERS: ATTEND Surgery
DX: C44.622 Squamous cell carcinoma of skin of right upper limb, including shoulder (principal); I25.10 Atherosclerotic heart disease of native coronary artery without angina pectoris; I25.2 Old myocardial infarction; I48.91 Unspecified atrial fibrillation; C85.90 Non-Hodgkin lymphoma, unspecified, unspecified site; E78.5 Hyperlipidemia, unspecified; M19.90 Unspecified osteoarthritis, unspecified site; G43.B0 Ophthalmoplegic migraine, not intractable; Z95.5 Presence of coronary angioplasty implant and graft; Z87.442 Personal history of urinary calculi; Z79.82 Long term (current) use of aspirin; Z79.02 Long term (current) use of antithrombotics/antiplatelets; Z79.899 Other long term (current) drug therapy; Z92.21 Personal history of antineoplastic chemotherapy; Z98.890 Other specified postprocedural states; Z87.891 Personal history of nicotine dependence; Z80.41 Family history of malignant neoplasm of ovary; Z82.49 Family history of ischemic heart disease and other diseases of the circulatory system
CPT/HCPCS: 88305; 11606; 12032; J2250; J1100; J2405; J0690; J2001; J3010; J2704

== ENCOUNTER → 2019-12-08 | Outpatient (CLI) | payer MEDICARE ==
[2019-12-08 17:58] LABS: Chol/HDL Ratio 3.44; LDL Cholesterol,Calculated 68.2 mg/dL (0.0-131.0); VLDL Calculation 26.8 mg/dL (5.00-40.00)
== END | disposition home or self-care (01) ==
LOC: LABWHC1 11:00
PROVIDERS: ATTEND Nurse Practitioner Adult Health
DX: E78.5 Hyperlipidemia, unspecified (principal)
CPT/HCPCS: 36415; 80061

== ENCOUNTER → 2020-07-16 | Outpatient (CLI) | payer MEDICARE ==
--- NOTE | 2020-07-19 11:00 | PE ---
Nuclear medicine PET/CT HISTORY: Lymphoma, abdominal mesenteric mass, subsequent Patient received 13.2 mCi F-18 FDG intravenously in delayed scanning was performed from the skull bas e to the mid thighs. Localization and attenuation correction CT scan was performed. Correlation to prior nuclear medicine PET/CT dated 07/03/2019 Chest and neck: There is no cervical or supraclavicular adenopathy. No mediastinal, axillary, or albert r adenopathy. Coronary artery calcifications are present. There is no pleural pericardial effusion. N o evident lung mass. No suspicious uptake. ABDOMEN: There is no retroperitoneal adenopathy or suspicious uptake. No evident liver mass. There is no splenomegaly. There is some mild uptake noted at the mesentery, some small nodes are present, SUV only 2.2 slightly increased from prior when it was 1.8. Osseous structures show improved uptake associated with patient's right shoulder Impression: Mild uptake noted associated with the patient's mesenteric mass.
== END | disposition home or self-care (01) ==
LOC: RADPETMAIN 10:56
PROVIDERS: ATTEND Internal Medicine Hematology & Oncology
DX: C82.03 Follicular lymphoma grade I, intra-abdominal lymph nodes (principal)
CPT/HCPCS: 78815; A9552

== ENCOUNTER → 2020-12-08 | Outpatient (CLI) | payer MEDICARE ==
[2020-12-08 17:19] LABS: African American GFR (CKD) 70.6 (60.0-200.0); Albumin 4.3 g/dL (3.80-4.90); Albumin/Globulin Ratio 2.05 (1.60-3.17); Anion Gap 6.7 mmol/L (4.00-12.00); BUN/Creat Ratio 13.33 Ratio (12.00-20.00); Calcium 8.6 mg/dL (8.7-10.3); Carbon Dioxide 25.3 mmol/L (21.6-31.8); Chol/HDL Ratio 3.8; Globulin 2.1 g/dL (1.6-3.3); LDL Cholesterol,Calculated 89.8 mg/dL (0.0-131.0); Non-African American GFR(CKD) 60.9 (60.0-200.0); Potassium 4.2 mmol/L (3.5-5.5); Total Bilirubin 0.7 mg/dL (0.3-1.2); Total Protein 6.4 g/dL (6.2-8.2); VLDL Calculation 22.2 mg/dL (5.00-40.00)
== END | disposition home or self-care (01) ==
LOC: LABWHC1 09:12
PROVIDERS: ATTEND Internal Medicine Clinical Cardiac Electrophysiology
DX: E78.5 Hyperlipidemia, unspecified (principal); I25.10 Atherosclerotic heart disease of native coronary artery without angina pectoris
CPT/HCPCS: 36415; 80053; 80061

== ENCOUNTER → 2021-02-02 | Outpatient (CLI) | payer MEDICARE ==
[2021-02-02 13:24] LABS: HCT 40.2 % (39.0-53.0); HGB 13.7 gm/dL (13.0-17.5); MCH 34.9 pg (25.0-35.0); MCHC 33.9 g/dL (31.0-37.0); MCV 102.7 fL (80.0-100.0); Macrocytosis Slight; Mean Platelet Volume 8.1; Platelet Count 159 k/uL (150-450); RBC 3.92 m/uL (4.30-5.90); WBC 3.6 k/uL (3.8-10.6)
[2021-02-02 13:38] LABS: Potassium 4.8 mmol/L (3.5-5.1)
== END | disposition home or self-care (01) ==
LOC: LABPAT 11:49
PROVIDERS: ATTEND Internal Medicine
DX: Z01.812 Encounter for preprocedural laboratory examination (principal); R94.39 Abnormal result of other cardiovascular function study
CPT/HCPCS: 36415; 80051; 82565; 84520; 85027

== ENCOUNTER → 2021-02-03 | Outpatient (CLI) | payer MEDICARE ==
--- NOTE | 2021-02-03 12:10 | PE ---
EXAMINATION TYPE: PET CT fusion skull to thigh DATE OF EXAM: 02/03/2021 COMPARISON: Prior PET/CT July 16, 2020 and older studies HISTORY: Non-Hodgkin's Lymphoma originally diagnosed in 2019 right mid abdominal level completed ch emotherapy in November. TECHNIQUE: Following the intravenous administration of 9.79 mCi of F-18 FDG, whole body images are p erformed from the skull base to the midthigh. Images are reviewed on the computer in the coronal, ax ial, and sagittal planes. Reconstructed rotating images are created on independent workstation and r eviewed on the computer. A localization and attenuation correction CT is performed in conjunction w ith the PET scan. Blood glucose level equals 91 SCAN: Subsequent Scan FINDINGS: Mean SUV mediastinum: 0.9 Mean SUV liver: 2.22 SKULL BASE AND NECK: No new suspicious hypermetabolic uptake is present. CHEST, MEDIASTINUM, AND HILAR REGION: No new suspicious hypermetabolic uptake is seen. ABDOMEN AND PELVIS: More prominent hypermetabolic uptake in the right midabdomen near axial image 166 corresponds to area of prior neoplasm with some possible slight increasing soft tissue fullness that is indistinct from adjacent bowel loops. Max SUV is 3.28 versus prior study less than 2.0. Some focal calcified nodules inferior to this significantly changed from prior. Normal excretion. No new areas of abnormal hypermetabolic uptake. OSSEOUS STRUCTURES: No suspicious hypermetabolic uptake is seen. OTHER CT: There are suspected coronary stents redemonstrated. Mild wade mesentery appearance remains present unchanged noted near axial image 165. Incidental normal-appearing appendix is redemonstrated. A few diverticula in the left and sigmoid col on are redemonstrated. Small fat-containing right inguinal hernia is redemonstrated. Marked Disc space narrowing L2-L3 and L5-S1 level with spurring is redemonstrated. There is facet art hropathy in the lower lumbar spine. IMPRESSION: Local neoplastic recurrence right midabdomen is suspected, correlate clinically.
== END | disposition home or self-care (01) ==
LOC: RADPETMAIN 07:22
PROVIDERS: ATTEND Internal Medicine Hematology & Oncology
DX: C85.90 Non-Hodgkin lymphoma, unspecified, unspecified site (principal); K40.90 Unilateral inguinal hernia, without obstruction or gangrene, not specified as recurrent; K57.30 Diverticulosis of large intestine without perforation or abscess without bleeding; Z85.72 Personal history of non-Hodgkin lymphomas
CPT/HCPCS: 78815; A9552

== ENCOUNTER → 2021-02-07 | Day surgery (SDC) | payer MEDICARE ==
[2021-02-01 15:47] VITALS: BMI 25.0
[~2021-02-07] MED LIST changes: +ALPRAZolam 0.25 MG TAB PO PRN; +ALPRAZolam 0.5 MG TAB PO PRN; +ASPIRIN 325 MG TAB PO STA; -DEXAMETHASONE SOD PHOSPHATE 10 MG/ML 1 ML VIAL IV ONE; +HEPARIN SODIUM 1,000 UN/ML (10ML VL) IV ONE; +HEPARIN SODIUM,PORCINE 10,000 UNIT in SODIUM CHLORIDE 0.9% 1,000 ML IRRIGATION PRN; +HEPARIN SODIUM,PORCINE 2,500 UNIT in SODIUM CHLORIDE 0.9% 250 ML IRRIGATION PRN; -HEPARIN SODIUM,PORCINE 5,000 UNIT/ML 1 ML VIAL SQ ONE; -HYDROmorphone 0.5 MG/0.5 ML SYRINGE IVP PRN; +IOPAMIDOL-370 125ML BTL INJ ONE; -LACTATED RINGERS 1,000 ML IV SCH; -LIDOCAINE 1% (10MG/ML) FOR IV START INTRADERMA PRN; +LIDOCAINE 1% INJ 10MG/ML (20 ML MDV) ONE; +LIDOCAINE 1% INJ 10MG/ML (20 ML MDV) SQ ONE; +MIDAZOLAM 2 MG/2 ML VIAL IV ONE; +NITROGLYCERIN SL TABS 0.4 MG TAB SUBLINGUAL PRN; -ONDANSETRON 4 MG/2 ML VIAL IVP ONE; -Pre Op ABX Message 1 EACH MISC MISCELLANE ONE; +RX INFO: IV CONTRAST WAS GIVEN 1 EACH MISC MISCELLANE PRN; +SODIUM CHLORIDE 0.9% 1,000 ML IV ONE; +SODIUM CHLORIDE 0.9% 1,000 ML in EMPTY BAG 1 BAG IV ONE; +VERAPAMIL 2.5 MG/ML 2 ML AMP ONE; +VERAPAMIL SYRINGE (5 MG/10 ML) INTRAARTER ONE; +fentaNYL (PF) 50 MCG/ML 2 ML AMP IV ONE; +fentaNYL (PF) 50 MCG/ML 2 ML AMP ONE
[2021-02-07 11:21] VITALS: RESP 18; TEMP 98.1
--- NOTE | 2021-02-07 13:35 | P.CARDCATH ---
Description of Procedure: PROCEDURES PERFORMED: Left heart catheterization, bilateral coronary angiography. INDICATION: Abnormal stress test HISTORY: Patient is a pleasant 70-year-old male with history of hypertension, hyperlipidemia, coronary artery disease with prior PCI of the RCA in 2019. He follows with Dr. Verdugo. He has been relatively asymptomatic however did have a nuclear stress test where he exercised for a little bit over 8 minutes without any angina however nuclear portion was read out as inferior ischemia. Therefore heart catheterization was recommended. CONSENT:I have discussed the risks, benefits and alternative therapies for the above-mentioned procedure and for both sedation/analgesia as well as necessary blood product administration, if indicated, as they pertain to this patient. The patient has indicated understanding and acceptance of the risks and procedures discussed. PROCEDURE: After the risks, benefits and alternatives of the above mentioned procedure explained in detail with the patient, informed consent was obtained. Patient was taken to the catheterization lab and prepped and draped in usual fashion. 1% lidocaine was used to anesthetize the right radial artery. A 6- [place] sheath was placed in the right radial artery using modified Seldinger technique. Left coronary angiography was performed with a 5-[place] JL 3.5 catheter and right coronary angiography was performed with a 5-[place] JR5 catheter in various views. A 5-[place] Citizen FR5 catheter was inserted into the left ventricle and pressure measurements were obtained. The right radial sheath was removed and a TR band was placed with hemostasis achieved. The patient tolerated the procedure well. Patient was transported back to the post catheterization holding area in stable condition. Conscious Sedation: Patient was monitored under the direct supervision of vision of myself for conscious sedation using Versed and fentanyl for a total duration of 19 minutes HEMODYNAMICS: Aorta: 134/76 LV: 132/2, LVEDP 12 SELECTIVE CORONARY ARTERIOGRAPHY: LEFT MAIN: The left main is a large caliber vessel which bifurcates into the LAD and circumflex. There is diffuse left main 30% stenosis. LEFT ANTERIOR DESCENDING CORONARY ARTERY: LAD is a large caliber vessel which wraps around to the apex. There are diffuse mild luminal irregularities with a proximal 30-40% LAD stenosis. LEFT CIRCUMFLEX CORONARY ARTERY: Left circumflex is a moderate caliber vessel with a proximal 30% circumflex stenosis and otherwise only mild luminal irregularities. RIGHT CORONARY ARTERY: The right coronary artery is a large caliber vessel which gives off the PLV and PDA and is dominant. There is an ostial/proximal RCA 40- 50% stenosis. There are mid to distal RCA stents which are widely patent. Otherwise there are mild luminal irregularities. FINAL IMPRESSION: 1. CAD as described above diffuse mild to moderate disease including 30% left main, 30-40% proximal LAD, 30% circumflex, 40-50% proximal RCA stenosis. 2. Normal left sided filling pressures PLAN: 1. Aggressive risk factor modification per most recent ACC/AHA guidelines. 2. Would continue with medical therapy especially if patient is asymptomatic. Followup in the office in 1-2 weeks.
[2021-02-07 15:41] VITALS: BP 118/61; PULSE 58
== END ==
LOC: CATHCVL 10:43
PROVIDERS: ATTEND Internal Medicine
DX: I25.10 Atherosclerotic heart disease of native coronary artery without angina pectoris (principal); E78.5 Hyperlipidemia, unspecified; I10 Essential (primary) hypertension
CPT/HCPCS: 93458; C1894; J2250; J2001; J3010; J1644; Q9967

== ENCOUNTER → 2021-05-12 | Outpatient (CLI) | payer MEDICARE ==
--- NOTE | 2021-05-12 15:03 | CT ---
EXAMINATION TYPE: CT ChestAbdPelvis w con DATE OF EXAM: 05/12/2021 COMPARISON: PET CT 02/03/2021, 07/16/2020 HISTORY: 70-year-old male K56.60, follow up non-Hodgkin's lymphoma TECHNIQUE: Contiguous axial scanning of the chest, abdomen, and pelvis performed with IV Contrast, pa tient injected with 100 mL of Isovue 300. Delayed images through the kidneys were obtained. Coronal/s agittal reconstructions performed. CT DLP: 1127.5 mGycm Automated exposure control for dose reduction was used. FINDINGS: CHEST: Heart normal size without pericardial effusion. Three-vessel coronary artery calcifications are prese nt in remarkable for coronary artery disease. Aorta normal caliber with conventional arch vessel branching anatomy. No thoracic lymphadenopathy by CT size criteria. Strandy atelectasis in the lower lungs. No consolidation or pleural effusion. ABDOMEN: No focal liver lesion or biliary ductal dilatation. Portal venous system is patent. Gallbladder, adrenal glands, and right kidney, spleen, and pancreas within normal limits. Cortical cyst within the right kidney redemonstrated. Medial upper pole measuring 1.1 cm. Bilobed pos terior mid to lower pole cyst measuring 1.9 x 1.2 cm. There is central wade mesentery which may be slightly increased from prior exam. 2 right paramedian mid mesenteric lymph nodes are noted. There is some internal calcifications. These measure 1.8 x 1.0 cm (versus 1.2 x 0.8 cm, previously) and 1.5 x 1.3 cm (versus 1.3 x 1.3 cm, previo usly). Also redemonstrated the centrally located right mid mesenteric mass currently measuring 4.3 x 3.1 cm versus 4.3 x 2.3 cm, previously. No dilated small bowel, free fluid, or free air. No retroperitoneal lymphadenopathy. Normal appendix. Moderate stool burden. Lower descending and proximal sigmoid diverticulosis. No marya colonic inflammatory change. PELVIS: Bladder is urine distended. Prostate gland measures 4.7 cm wide with mild heterogeneous enhancement. No abnormal fluid collection in the pelvis or pelvic lymphadenopathy. BONES: Sclerotic focus right ischium, right femoral head, left superior acetabulum. These are unchanged sugg esting bone islands. Degenerative grade 1 retrolisthesis L2-L3 secondary to hypertrophic facet arthropathy. Moderate to ad vanced degenerative disc disease L5-S1. Mild overall spinal canal stenosis at L2-L3. IMPRESSION: 1. RIGHT MID ABDOMINAL MESENTERIC MASS SHOWS SLIGHT INCREASE IN BULK MEASURING 4.3 X 3.1 CM (VERSUS 4 .3 X 2.3 CM, PREVIOUSLY). 2. THE 2 ADJACENT RIGHT SIDED MESENTERIC LYMPH NODES ARE ALSO SLIGHTLY LARGER AT 1.8 AND 1.5 CM NOW ( VERSUS 1.2 AND 1.3 CM, PREVIOUSLY, RESPECTIVELY). SLIGHT INTERVAL DISEASE PROGRESSION IS SUGGESTED.
== END | disposition home or self-care (01) ==
LOC: RADCTMAIN 10:27
PROVIDERS: ATTEND Internal Medicine Hematology & Oncology
DX: Z03.89 Encounter for observation for other suspected diseases and conditions ruled out (principal); C82.03 Follicular lymphoma grade I, intra-abdominal lymph nodes
CPT/HCPCS: 82565; 84520; 71260; 74177; 36415; Q9967

== ENCOUNTER 2021-05-25 10:17 | Day surgery (SDC) | payer MEDICARE ==
[2021-05-23 13:36] VITALS: BMI 24.5
[~2021-05-25 10:17] MED LIST changes: -ALPRAZolam 0.25 MG TAB PO PRN; -ALPRAZolam 0.5 MG TAB PO PRN; -ASPIRIN 325 MG TAB PO STA; -HEPARIN SODIUM 1,000 UN/ML (10ML VL) IV ONE; -HEPARIN SODIUM,PORCINE 10,000 UNIT in SODIUM CHLORIDE 0.9% 1,000 ML IRRIGATION PRN; -HEPARIN SODIUM,PORCINE 2,500 UNIT in SODIUM CHLORIDE 0.9% 250 ML IRRIGATION PRN; -IOPAMIDOL-370 125ML BTL INJ ONE; +LACTATED RINGERS 1,000 ML IV SCH; +LIDOCAINE 1% (10MG/ML) FOR IV START INTRADERMA PRN; -LIDOCAINE 1% INJ 10MG/ML (20 ML MDV) ONE; -LIDOCAINE 1% INJ 10MG/ML (20 ML MDV) SQ ONE; -MIDAZOLAM 2 MG/2 ML VIAL IV ONE; -NITROGLYCERIN SL TABS 0.4 MG TAB SUBLINGUAL PRN; -RX INFO: IV CONTRAST WAS GIVEN 1 EACH MISC MISCELLANE PRN; -SODIUM CHLORIDE 0.9% 1,000 ML IV ONE; -SODIUM CHLORIDE 0.9% 1,000 ML in EMPTY BAG 1 BAG IV ONE; -VERAPAMIL 2.5 MG/ML 2 ML AMP ONE; -VERAPAMIL SYRINGE (5 MG/10 ML) INTRAARTER ONE; -fentaNYL (PF) 50 MCG/ML 2 ML AMP IV ONE; -fentaNYL (PF) 50 MCG/ML 2 ML AMP ONE
[2021-05-25 10:55] VITALS: TEMP 97.7
[2021-05-25] MEDS ORDERED: LACTATED RINGERS 1,000 ML IV ONE (10:56)
[2021-05-25] MEDS ORDERED: PROPOFOL 10 MG/ML 20 ML VIAL IV ONE (12:02)
--- NOTE | 2021-05-25 12:05 | P.GSHP ---
History of Present Illness H&P Date: 05/25/21 Chief Complaint: GI Bleed This a 70-year-old male who presents today for colonoscopy. Patient has had history of GI bleed. Past Medical History Past Medical History: Atrial Fibrillation, Coronary Artery Disease (CAD), Cancer, Chest Pain / Angina, Eye Disorder, Hyperlipidemia, Osteoarthritis (OA) Additional Past Medical History / Comment(s): Hx of kidney stones, ocular migraines, posterior vitreous separation (sees floaters), dx w/mesenteric mass 2018 which ended up being Non-Hodgkin's Lymphoma, hx diverticulitis, squamous sarcoma skin cancer, hx of blood clot in arm, hx Gout. History of Any Multi-Drug Resistant Organisms: None Reported Past Surgical History: Heart Catheterization With Stent, Orthopedic Surgery Additional Past Surgical History / Comment(s): Right knee arthroscopy, bilateral great toe bone spurs removed, left achilles tendon repair, left undescended testicle surgery, total of 4 cardiac stents. Past Anesthesia/Blood Transfusion Reactions: No Reported Reaction Date of Last Stent Placement:: 05/29/2019 Past Psychological History: No Psychological Hx Reported Smoking Status: Former smoker Past Alcohol Use History: None Reported Additional Past Alcohol Use History / Comment(s): Started smoking in 1966 and quit in 1977, 1 PPD. Past Drug Use History: None Reported - Past Family History Mother Family Medical History: Cancer Additional Family Medical History / Comment(s): . Father Family Medical History: CVA/TIA, Myocardial Infarction ([place]) Additional Family Medical History / Comment(s): from a [place] at the age of 86. Medications and Allergies Home Medications Medication Instructions Recorded Confirmed Type Aspirin 81 mg PO DAILY #30 01/06/17 05/23/21 Rx Multivitamins, Thera [Multivitamin 1 tab PO DAILY 07/15/19 05/23/21 History (formulary)] Ezetimibe [Zetia] 10 mg PO DAILY 02/01/21 05/23/21 History Rosuvastatin Calcium [Crestor] 40 mg PO HS 02/01/21 05/23/21 History Allergies Allergy/AdvReac Type Severity Reaction Status Date / Time No Known Allergies Allergy Verified 05/23/21 13:24 Surgical - Exam Vital Signs Temp Pulse Resp BP Pulse Ox 97.7 F 60 18 161/79 99 05/25/21 10:54 05/25/21 10:54 05/25/21 10:54 05/25/21 10:54 05/25/21 10:54 - General well developed, well nourished, no distress - Eyes PERRL - ENT normal pinna - Neck no masses - Respiratory normal expansion - Cardiovascular Rhythm: regular - Abdomen Abdomen: soft, non tender Assessment and Plan Assessment: GI bleed. We'll perform colonoscopy.
--- NOTE | 2021-05-25 12:16 | P.OP ---
Date of Procedure: 05/25/21 Preoperative Diagnosis: GI bleed Postoperative Diagnosis: Mild diverticulosis Internal hemorrhoids Procedure(s) Performed: Colonoscopy Anesthesia: MAC Surgeon: Joseph Shaikh Pathology: none sent Condition: stable Disposition: PACU Description of Procedure: The patient's placed on the operating table in the lateral position. He received IV sedation. Digital rectal exam was performed. This revealed minimal internal hemorrhoids. The flexible colonoscope was then placed patient anus and passed throughout the entire colon. The ileocecal valve was visualized. Cecum, ascending and transverse colon appeared normal. In the descending and sigmoid colon was a few scattered diverticula. Scope was then brought back the rectum this appeared normal. Scope withdrawn through the anus and internal hemorrhoids noted. Scope withdrawn for patient. There is known to any GI bleed. His presumed patient may have had bleeding from hemorrhoids or diverticula
[2021-05-25 12:43] VITALS: BP 122/71; PULSE 70; RESP 16
== END 2021-05-25 12:47 | disposition home or self-care (01) ==
LOC: ORWHC2ENDO 10:17
PROVIDERS: ATTEND Surgery
DX: K64.8 Other hemorrhoids (principal); K57.30 Diverticulosis of large intestine without perforation or abscess without bleeding; K92.2 Gastrointestinal hemorrhage, unspecified; I48.91 Unspecified atrial fibrillation; I25.10 Atherosclerotic heart disease of native coronary artery without angina pectoris; I20.9 Angina pectoris, unspecified; I10 Essential (primary) hypertension; E78.5 Hyperlipidemia, unspecified; M19.90 Unspecified osteoarthritis, unspecified site; Z87.442 Personal history of urinary calculi; G43.909 Migraine, unspecified, not intractable, without status migrainosus; Z85.72 Personal history of non-Hodgkin lymphomas; Z85.828 Personal history of other malignant neoplasm of skin; Z87.19 Personal history of other diseases of the digestive system; M10.9 Gout, unspecified; Z95.5 Presence of coronary angioplasty implant and graft; Z98.890 Other specified postprocedural states; Z87.891 Personal history of nicotine dependence; Z80.9 Family history of malignant neoplasm, unspecified; Z82.49 Family history of ischemic heart disease and other diseases of the circulatory system; Z82.3 Family history of stroke; Z79.82 Long term (current) use of aspirin; Z79.899 Other long term (current) drug therapy
CPT/HCPCS: 45378; J2704

== ENCOUNTER → 2021-06-30 | Outpatient (CLI) | payer MEDICARE ==
--- NOTE | 2021-07-03 08:51 | PE ---
EXAMINATION TYPE: PET CT fusion skull to thigh DATE OF EXAM: 06/30/2021 COMPARISON: NONE HISTORY: Non-Hodgkin Lymphoma progress study. Originally diagnosed in 2019 right mid abdominal level completed chemotherapy November 2020. TECHNIQUE: Following the intravenous administration of 8.61 mCi of F-18 FDG, whole body images are p erformed from the skull base to the midthigh. Images are reviewed on the computer in the coronal, ax ial, and sagittal planes. Reconstructed rotating images are created on independent workstation and r eviewed on the computer. A localization and attenuation correction CT is performed in conjunction w ith the PET scan. Blood glucose level equals 79. SCAN: Subsequent Scan FINDINGS: Mean SUV mediastinum: 0.61 Mean SUV liver: 2.13 SKULL BASE AND NECK: No new suspicious hypermetabolic uptake is present. CHEST, MEDIASTINUM, AND HILAR REGION: No new suspicious hypermetabolic uptake is seen. ABDOMEN AND PELVIS: Enlarging and More prominent hypermetabolic uptake in the right midabdomen near a xial image 163 current study measuring 2.2 x 2.0 cm felt increased in size, max SUV is 4.5 versus 3.2 8 on prior study. New hypermetabolic enlarging mass measuring roughly 3.2 x 2.1 cm just inferior to t his axial image 169, max SUV is 6.23 versus under 2.5 prior study. Calcified mesenteric nodules just inferior to these remain present. One has mild hypermetabolic uptake axial image 183, max SUV is 3.57 Normal excretion redemonstrated. OSSEOUS STRUCTURES: No suspicious hypermetabolic uptake is seen. OTHER CT: There are suspected coronary artery stents redemonstrated. Mild wade mesentery appearance redemonstrated. Incidental normal-appearing appendix is again seen. A few diverticula in the left and sigmoid colon a re redemonstrated. Small fat-containing right inguinal hernia is redemonstrated. Marked Disc space narrowing L2-L3 and L5-S1 level with spurring is redemonstrated. There is facet art hropathy in the lower lumbar spine. IMPRESSION: Local neoplastic progression right mid abdomen as detailed above.
== END | disposition home or self-care (01) ==
LOC: RADPETMAIN 13:59
PROVIDERS: ATTEND Internal Medicine Hematology & Oncology
DX: C82.03 Follicular lymphoma grade I, intra-abdominal lymph nodes (principal)
CPT/HCPCS: 78815; A9552

== ENCOUNTER 2021-08-21 06:27 | Day surgery (SDC) | payer MEDICARE ==
[2021-08-17 14:58] VITALS: BMI 25.0
[~2021-08-21 06:27] MED LIST changes: +ACETAMINOPHEN TAB 500 MG TAB PO PRN; +HEPARIN SODIUM,PORCINE/PF 5,000 UNIT/0.5 ML SYRINGE SQ PRN; -LACTATED RINGERS 1,000 ML IV SCH; -LIDOCAINE 1% (10MG/ML) FOR IV START INTRADERMA PRN; +Pre Op ABX Message 1 EACH MISC MISCELLANE ONE
[2021-08-21] MEDS ORDERED: HYDROmorphone 0.5 MG/0.5 ML SYRINGE IVP PRN (06:49)
[2021-08-21] MEDS ORDERED: DEXAMETHASONE SOD PHOSPHATE 4 MG/ML 1 ML VIAL IV ONE (06:49)
[2021-08-21] MEDS ORDERED: ONDANSETRON 4 MG/2 ML VIAL IVP ONE (06:49)
[2021-08-21] MEDS ORDERED: LACTATED RINGERS 1,000 ML IV SCH (06:49)
--- NOTE | 2021-08-21 07:36 | P.GSHP ---
History of Present Illness H&P Date: 08/21/21 Chief Complaint: Lymphoma 71-year-old male here today for Port-A-Cath placement. Patient has recent diagnosis of recurrent lymphoma. Patient did not have a port placed at the time of his last chemotherapy session. States he ran out of IV options over time. Past Medical History Past Medical History: Atrial Fibrillation, Coronary Artery Disease (CAD), Cancer, Chest Pain / Angina, Eye Disorder, Hyperlipidemia, Osteoarthritis (OA) Additional Past Medical History / Comment(s): Hx: kidney stones, ocular migraines, posterior vitreous separation, dx w/ mesenteric mass which ended up being Non-Hodgkin's Lymphoma, squamous cell skin cancer, blood clot in arm History of Any Multi-Drug Resistant Organisms: None Reported Past Surgical History: Heart Catheterization With Stent, Orthopedic Surgery Additional Past Surgical History / Comment(s): Sx: Right knee arthroscopy, bilateral great toe bone spurs removed, left achilles tendon repair, left testicle surgery, total of 4 cardiac stents. Past Anesthesia/Blood Transfusion Reactions: No Reported Reaction Date of Last Stent Placement:: 05/29/2019 Past Psychological History: No Psychological Hx Reported Additional Psychological History / Comment(s): . Smoking Status: Former smoker Past Alcohol Use History: None Reported Past Drug Use History: None Reported - Past Family History Mother Family Medical History: Cancer Additional Family Medical History / Comment(s): . Father Family Medical History: CVA/TIA, Myocardial Infarction ([place]) Additional Family Medical History / Comment(s): from a [place] at the age of 86. Medications and Allergies Home Medications Medication Instructions Recorded Confirmed Type Aspirin 81 mg PO DAILY #30 01/06/17 08/17/21 Rx Multivitamins, Thera [Multivitamin 1 tab PO DAILY 07/15/19 08/17/21 History (formulary)] Ezetimibe [Zetia] 10 mg PO DAILY 02/01/21 08/17/21 History Rosuvastatin Calcium [Crestor] 40 mg PO HS 02/01/21 08/17/21 History Allergies Allergy/AdvReac Type Severity Reaction Status Date / Time No Known Allergies Allergy Verified 08/21/21 06:55 Surgical - Exam Vital Signs Temp Pulse Resp BP Pulse Ox 98.4 F 65 20 116/70 98 08/21/21 07:02 08/21/21 07:02 08/21/21 07:02 08/21/21 07:02 08/21/21 07:02 Physical exam: General: Well-developed, well-nourished HEENT: Normocephalic, sclerae nonicteric Abdomen: Nontender, nondistended Extremities: No edema Neuro: Alert and oriented Assessment and Plan (1) Lymphoma Narrative/Plan: 71-year-old male with recent diagnosis of recurrent lymphoma. We'll proceed with Port-A-Cath placement at this time. Risks of bleeding, infection, DVT, pneumothorax, catheter malfunction, anesthesia related complications were discussed. The patient understands and wishes to proceed. Current Visit: Yes Status: Acute Code(s): C85.90 - NON-HODGKIN LYMPHOMA, UNSPECIFIED, UNSPECIFIED SITE SNOMED Code(s): 946745415
[2021-08-21] MEDS ORDERED: LIDOCAINE 1% INJ 10MG/ML (20 ML MDV) ONE (07:40)
[2021-08-21] MEDS ORDERED: PROPOFOL 10 MG/ML 20 ML VIAL IV ONE (07:40)
[2021-08-21] MEDS ORDERED: fentaNYL (PF) 50 MCG/ML 2 ML AMP ONE (07:40)
[2021-08-21] MEDS ORDERED: MIDAZOLAM 2 MG/2 ML VIAL ONE (07:40)
[2021-08-21] MEDS ORDERED: SODIUM CHLORIDE 0.9% 100 ML with ceFAZolin 2,000 MG IV ONE ×2 (07:44)
[2021-08-21] MEDS ORDERED: LIDOCAINE 1% INJ 10MG/ML (20 ML MDV) SQ ONE ×2 (08:08)
--- NOTE | 2021-08-21 08:45 | P.OP ---
Date of Procedure: 08/21/21 Procedure(s) Performed: PREOPERATIVE DIAGNOSIS: Recurrent lymphoma POSTOPERATIVE DIAGNOSIS: Same PROCEDURE: Port-A-Cath placement with fluoroscopic and ultrasound guidance SURGEON: [place] EBL: Minimal ANESTHESIA: Sedation COMPLICATIONS: None OPERATIVE PROCEDURE: Patient was brought and placed on the operative table in the supine position. The patient was sedated per anesthesia that time. The chest and neck were prepped and draped in usual sterile fashion. The ultrasound probe was used to identify the location of the right internal jugular vein. The skin was localized with lidocaine. The Seldinger needle was advanced into the IJ under ultrasound guidance. The wire was advanced through the needle under fluoroscopic guidance into the superior vena cava. A port pocket was created in the right infraclavicular location. The catheter was tunneled from the wire entrance site to the port pocket. The port was then connected to the catheter. The dilator introducer was threaded over the guidewire. The guidewire and dilator were then removed. The catheter was advanced through the introducer and introducer was then removed. The tip was seen to be in the right atrial junction via fluoroscopy. A picture of the radiograph showing the tip at the radial digital junction was taken. Port was flushed with both saline and a Hep- Lock solution. There was good flow both in and out of the port. The port was sutured in underlying tissues using 3-0 silk sutures. The subcutaneous tissues were reapproximated using 3-0 Vicryl sutures and the skin at both locations using 4-0 Monocryl sutures. Skin glue and sterile dressings then applied. DISPOSITION: Stable to recovery room
--- NOTE | 2021-08-21 08:58 | FL ---
Fluoroscopy HISTORY: Catheter placement 8 seconds fluoroscopy time supplied to the referring clinician. 1 intraoperative C-arm images docume nt the procedure. See dictated report from general surgery.
[2021-08-21 09:04] VITALS: TEMP 96.8
[2021-08-21 09:07] VITALS: RESP 16
[2021-08-21 09:45] VITALS: BP 127/80; PULSE 58
--- NOTE | 2021-08-21 09:48 | XR ---
EXAMINATION TYPE: XR chest 1V portable DATE OF EXAM: 08/21/2021 COMPARISON: NONE HISTORY: Status post central venous catheter placement TECHNIQUE: Single frontal view of the chest is obtained. FINDINGS: Right-sided Port-A-Cath has been placed via a jugular approach, distal tip is overlying sup erior vena cava. Minimal patchy basilar density may be due to atelectasis. There are overlying artifa cts. There is no focal air space opacity, pleural effusion, or pneumothorax seen. The cardiac silhou ette size is within normal limits. The osseous structures are intact. IMPRESSION: No evident complication status post Port-A-Cath placement.
== END 2021-08-21 10:04 | disposition home or self-care (01) ==
LOC: OR 06:27
PROVIDERS: ATTEND Surgery
DX: C85.90 Non-Hodgkin lymphoma, unspecified, unspecified site (principal); I48.91 Unspecified atrial fibrillation; I25.10 Atherosclerotic heart disease of native coronary artery without angina pectoris; E78.5 Hyperlipidemia, unspecified; M19.90 Unspecified osteoarthritis, unspecified site; Z87.442 Personal history of urinary calculi; G43.809 Other migraine, not intractable, without status migrainosus; Z95.5 Presence of coronary angioplasty implant and graft; Z98.890 Other specified postprocedural states; Z87.891 Personal history of nicotine dependence; Z80.9 Family history of malignant neoplasm, unspecified; Z86.73 Personal history of transient ischemic attack (TIA), and cerebral infarction without residual deficits; Z79.899 Other long term (current) drug therapy; Z79.82 Long term (current) use of aspirin
CPT/HCPCS: 77001; 71045; 36561; 76937; C1788; J2250; J1100; J2405; J0690; J2001; J3010; J1642; J2704; J1644

== ENCOUNTER → 2021-10-13 | Outpatient (CLI) | payer MEDICARE ==
[2021-10-13 14:32] LABS: African American GFR (CKD) >90 (>60 ml/min/1.73 sqM); Blood Urea Nitrogen 19 mg/dL (9-20); Non-African American GFR(CKD) 82 (>60 ml/min/1.73 sqM)
--- NOTE | 2021-10-15 20:49 | CT ---
EXAMINATION TYPE: CT ChestAbdPelvis w con DATE OF EXAM: 10/13/2021 COMPARISON: Most recent PET CT June 30, 2021 and older studies HISTORY: h/o non-Hodgkin lymphoma originally diagnosed in 2019 right mid abdominal level CT DLP: 1262.1 mGycm. Automated Exposure Control for Dose Reduction was Utilized. CONTRAST: CT scan of the thorax, abdomen and pelvis is performed with oral and with IV Contrast, patient inject ed with 100 mL of Isovue 300. FINDINGS: LUNGS: Mild linear scarring in both lung bases. No suspicious greater than 5 mm pulmonary nodules or masses. No pleural effusion or pneumothorax seen bilaterally. MEDIASTINUM: There are no new greater than 1 cm hilar or mediastinal lymph nodes. No cardiomegaly i s seen. Small to tiny anterior pericardial effusion and 54. OTHER: Stable right internal jugular Mediport catheter. LIVER/GB: No significant abnormality is appreciated. PANCREAS: No significant abnormality is seen. SPLEEN: No significant abnormality is seen. ADRENALS: No significant abnormality is seen. KIDNEYS: No significant abnormality is seen. BOWEL: Oral contrast reaches level of the hepatic flexure. No suspicious small and large bowel dilata tion is seen. Distal colonic diverticula. No CT evidence for acute diverticulitis. GENITAL ORGANS: No gross abnormality seen. LYMPH NODES: Partially calcified mesenteric masses are redemonstrated fairly stable in size from most recent CT and PET/PET/CT measuring 1.5 x 1.4 cm right aspect on axial image 88 and 2.0 x 1.1 cm ante rior aspect axial image 88. Abnormal soft tissue superior to this measures roughly 4.0 x 2.5 cm fairl y stable from most recent CT and PET/CT. No definitive new abnormal soft tissue masses or adenopathy. OSSEOUS STRUCTURES: [id number] disc space narrowing lumbosacral junction with vacuum disc phe nomenon OTHER: No significant additional abnormality is seen. IMPRESSION: Stable abnormal soft tissue in the mid abdomen corresponding to the area of neoplastic re currence on most recent PET/CT and partially calcified mildly hypermetabolic lymph nodes just below t his. No new or enlarging suspicious masses or adenopathy seen.
== END | disposition home or self-care (01) ==
LOC: RADPROMAIN 13:41
PROVIDERS: ATTEND Internal Medicine Hematology & Oncology
DX: C82.03 Follicular lymphoma grade I, intra-abdominal lymph nodes (principal)
CPT/HCPCS: 82565; 84520; 71260; 74177; J1642; Q9967

== ENCOUNTER → 2021-11-10 | Outpatient (CLI) | payer MEDICARE ==
--- NOTE | 2021-11-14 06:28 | PE ---
EXAMINATION TYPE: PET CT fusion skull to thigh DATE OF EXAM: 11/10/2021 COMPARISON: Most recent CT October 13, 2021 and older studies including most recent PET CT June 30, 2021 HISTORY: Non-Hodgkin lymphoma centered in the mesentery diagnosed 2019 completed chemotherapy this mo nth. TECHNIQUE: Following the intravenous administration of 11.93 mCi of F-18 FDG, whole body images are performed from the skull base to the midthigh. Images are reviewed on the computer in the coronal, a xial, and sagittal planes. Reconstructed rotating images are created on independent workstation and reviewed on the computer. A localization and attenuation correction CT is performed in conjunction with the PET scan. Blood glucose level equals 82. SCAN: Subsequent Scan FINDINGS: Mean SUV mediastinum: 1.11 Mean SUV liver: 2.13 SKULL BASE AND NECK: No new suspicious hypermetabolic uptake is present. CHEST, MEDIASTINUM, AND HILAR REGION: No new suspicious hypermetabolic uptake is seen. ABDOMEN AND PELVIS: Persistent abnormal soft tissue seen better on recent contrast-enhanced CT right midabdomen near axial image 154 measuring 2.7 x 1.4 cm is ametabolic on the current study. Redemonst ration of calcified smaller ametabolic masses or lymph nodes inferior to this. No new areas of abnormal hypermetabolic uptake. Normal excretion is redemonstrated. OSSEOUS STRUCTURES: No new areas of hypermetabolic uptake are identified. OTHER CT: There are suspected coronary artery stents redemonstrated. There is right internal jugular Mediport catheter terminating at caval atrial junction. Mild wade mesentery appearance redemonstrated. Incidental normal-appearing appendix is redemonstrated. A few diverticula in the left and sigmoid col on are redemonstrated. Small fat-containing right inguinal hernia is redemonstrated. Marked Disc space narrowing L2-L3 and L5-S1 level with multilevel spurring is redemonstrated. There i s facet arthropathy in the lower lumbar spine. IMPRESSION: Complete positive treatment response. No new or residual areas of abnormal hypermetabolic uptake.
== END | disposition home or self-care (01) ==
LOC: RADPETMAIN 15:08
PROVIDERS: ATTEND Internal Medicine Hematology & Oncology
DX: C85.93 Non-Hodgkin lymphoma, unspecified, intra-abdominal lymph nodes (principal)
CPT/HCPCS: 78815; A9552

== ENCOUNTER → 2021-11-27 | Outpatient (CLI) | payer MEDICARE ==
--- NOTE | 2021-11-28 18:20 | CA ---
Transthoracic Echo Report Name: Bon Edwards Age: 71 Gender: M : 1950 Exam Date: 11/27/2021 10:45 Exam Location: [facility] Ht (in): 71 Wt (lb): 195 Ordering Physician: Joon Ramesh MD Attending/Referring Phys: Communications Senior Associate Cande Sorto RDCS Procedure CPT: Indications: Z01.818 PRE PROCEDURAL Cardiac Hx: No cardiax hx Technical Quality: Good Contrast 1: Total Dose (mL): Contrast 2: Total Dose (mL): MEASUREMENTS (Male / Female) Normal Values 2D ECHO LV Diastolic Diameter PLAX 3.0 cm 4.2 - 5.9 / 3.9 - 5.3 cm LV Systolic Diameter PLAX 1.0 cm IVS Diastolic Thickness 1.3 cm 0.6 - 1.0 / 0.6 - 0.9 cm LVPW Diastolic Thickness 1.4 cm 0.6 - 1.0 / 0.6 - 0.9 cm LV Relative Wall Thickness 0.9 RV Internal Dim ED PLAX 2.3 cm M-MODE Aortic Root Diameter MM 3.2 cm LA Systolic Diameter MM 3.5 cm LA Ao Ratio MM 1.1 MV E Point Septal Separation 0.4 cm AV Cusp Separation MM 1.9 cm DOPPLER AV Peak Velocity 161.2 cm/s AV Peak Gradient 10.4 mmHg MV Area PHT 2.5 cm??? Mitral E Point Velocity 64.3 cm/s Mitral A Point Velocity 76.9 cm/s Mitral E to A Ratio 0.8 MV Deceleration Time 307.1 ms MV E' Velocity 4.9 cm/s Mitral E to MV E' Ratio 13.2 TR Peak Velocity 129.3 cm/s TR Peak Gradient 6.7 mmHg Right Ventricular Systolic Press 11.7 mmHg FINDINGS Left Ventricle Mildly increased septal wall thickness. Left ventricular ejection fraction is estimated at 55-60 %. Left ventricular cavity size normal. Right Ventricle The right ventricle is normal in size and function. Right Atrium The right atrium is normal in size. Left Atrium The left atrium is normal in size. Mitral Valve Structurally normal mitral valve without significant stenosis or prolapse. There is tracemitral regurgitation. Mitral valve thickened. Aortic Valve Structurally normal aortic valve without significant sclerosis or stenosis. There is no aortic regurgitation. Tricuspid Valve Structurally normal tricuspid valve without significant stenosis. Pulmonary artery systolic pressure is normal. Trace tricuspid regurgitation. Pulmonic Valve Structurally normal pulmonic valve without significant stenosis. There is no pulmonic regurgitation. Pericardium Normal pericardium without effusion. Aorta Normal aortic root dimension. CONCLUSIONS Normal LV size and systolic function. Mild concentric LVH. No significant abnormality on the Doppler exam. No pericardial effusion Previewed by: Dr. Justice William MD (Electronically Signed) Final Date: 28 November 2021 18:19
== END | disposition home or self-care (01) ==
LOC: RADECHMAIN 10:40
PROVIDERS: ATTEND Internal Medicine Hematology & Oncology
DX: Z01.818 Encounter for other preprocedural examination (principal); I08.1 Rheumatic disorders of both mitral and tricuspid valves
CPT/HCPCS: 93306

== ENCOUNTER 2022-02-28 06:20 | Day surgery (SDC) | payer MEDICARE ==
[2022-02-26 15:11] VITALS: BMI 23.7
[~2022-02-28 06:20] MED LIST changes: -ACETAMINOPHEN TAB 500 MG TAB PO PRN; -HEPARIN SODIUM,PORCINE/PF 5,000 UNIT/0.5 ML SYRINGE SQ PRN; +LACTATED RINGERS 1,000 ML IV SCH; +LIDOCAINE 1% (10MG/ML) FOR IV START INTRADERMA PRN; -Pre Op ABX Message 1 EACH MISC MISCELLANE ONE
[2022-02-28] MEDS ORDERED: LACTATED RINGERS 1,000 ML IV ONE ×2 (06:59)
[2022-02-28 07:02] VITALS: TEMP 97.5
[2022-02-28] MEDS ORDERED: PROPOFOL 10 MG/ML 20 ML VIAL IV ONE (07:04)
[2022-02-28] MEDS ORDERED: fentaNYL (PF) 50 MCG/ML 2 ML AMP ONE (07:04)
[2022-02-28 07:31] VITALS: RESP 15
[2022-02-28 07:44] VITALS: BP 119/79; PULSE 61
[2022-02-28 07:44] LABS: Basophils % (A) 1 %; Eosinophils # (A) 0.1 k/uL (0-0.7); Eosinophils % (A) 2 %; HCT 36.2 % (39.0-53.0); HGB 12.3 gm/dL (13.0-17.5); Lymphocytes # (A) 0.2 k/uL (1.0-4.8); Lymphocytes % (A) 8 %; MCH 35.5 pg (25.0-35.0); MCHC 34.1 g/dL (31.0-37.0); MCV 103.9 fL (80.0-100.0); Macrocytosis Slight; Mean Platelet Volume 7.4; Monocytes # (A) 0.3 k/uL (0-1.0); Monocytes % (A) 10 %; Neutrophils # (A) 2.2 k/uL (1.3-7.7); Neutrophils % (A) 77 %; Platelet Count 189 k/uL (150-450); RBC 3.48 m/uL (4.30-5.90); WBC 2.8 k/uL (3.8-10.6)
--- NOTE | 2022-02-28 13:41 | OP ---
OPERATIVE REPORT PREOPERATIVE DIAGNOSIS: Lymphoma. POSTOPERATIVE DIAGNOSES: Lymphoma. ANESTHESIA: Local with IV systemic sedation. DESCRIPTION OF PROCEDURE: Utilizing sterile technique, the skin overlying the right iliac crest was prepared with Betadine and alcohol. After adequate sterile draping, local anesthesia with 1% lidocaine and systemic sedation, size 11 4-inch Jamshidi needle was utilized to access the periosteum with ease. A total of 14 mL of aspirate and 4 cm bone core biopsies were obtained. The patient tolerated the procedure very well. There was no immediate procedure related complication. TOTAL BLOOD LOSS: Less than 1 mL. Results pending. MMODL / IJN: [id number] /
== END 2022-02-28 08:17 | disposition home or self-care (01) ==
LOC: OR 06:20
PROVIDERS: ATTEND Internal Medicine Hematology & Oncology
DX: C82.03 Follicular lymphoma grade I, intra-abdominal lymph nodes (principal); E78.5 Hyperlipidemia, unspecified; M19.90 Unspecified osteoarthritis, unspecified site; Z95.5 Presence of coronary angioplasty implant and graft; Z98.890 Other specified postprocedural states; Z80.9 Family history of malignant neoplasm, unspecified; Z79.82 Long term (current) use of aspirin; Z79.899 Other long term (current) drug therapy
CPT/HCPCS: 85025; 85045; 38222; J3010; J2704

== ENCOUNTER 2022-04-30 09:50 | Inpatient (IN) | payer MEDICARE ==
--- NOTE | 2022-04-30 10:45 | ED ---
Weakness HPI - General Chief complaint: Weakness Stated complaint: weakness, nausea, diarrhea Time Seen by Provider: 04/30/22 10:09 Source: patient, EMS, RN notes reviewed Mode of arrival: EMS Limitations: no limitations - History of Present Illness Initial comments: 71-year-old male history of lymphoma heart disease with Ana hendrix who presents with complaints of weakness also with nausea and diarrhea for the past 3 days multiple episodes of diarrhea. He also had a cough with a bit of yellow phlegm. His also states she's been having chills before the episodes diarrhea also decreased oral intake for the past week with respective fluids and food. No overt chest pain or abdominal pain at this time. No other complaints or modifying factors MD Complaint: generalized weakness - Related Data Home Medications Medication Instructions Recorded Confirmed Multivitamins, Thera [Multivitamin 1 tab PO DAILY 07/15/19 04/30/22 (formulary)] Ezetimibe [Zetia] 10 mg PO DAILY 02/01/21 04/30/22 Rosuvastatin Calcium [Crestor] 40 mg PO HS 02/01/21 04/30/22 Turmeric Root Extract [Turmeric] 500 mg PO DAILY 04/30/22 04/30/22 diphenhydrAMINE HCL [Benadryl] 25 mg PO HS 04/30/22 04/30/22 Previous Rx's Medication Instructions Recorded Aspirin 81 mg PO DAILY #30 01/06/17 Allergies Allergy/AdvReac Type Severity Reaction Status Date / Time No Known Allergies Allergy Verified 04/30/22 11:18 Review of Systems ROS Statement: Those systems with pertinent positive or pertinent negative responses have been documented in the HPI. ROS Other: All systems not noted in ROS Statement are negative. Past Medical History Past Medical History: Atrial Fibrillation, Coronary Artery Disease (CAD), Cancer, Chest Pain / Angina, Eye Disorder, Hyperlipidemia, Osteoarthritis (OA) Additional Past Medical History / Comment(s): Hx: kidney stones, ocular migraines, posterior vitreous separation, dx w/ mesenteric mass which ended up being Non-Hodgkin's Lymphoma-6 rounds of chemo-last round 12-08-21, squamous cell skin cancer, blood clot in arm History of Any Multi-Drug Resistant Organisms: None Reported Past Surgical History: Heart Catheterization With Stent, Orthopedic Surgery Additional Past Surgical History / Comment(s): Sx: Right knee arthroscopy, bilateral great toe bone spurs removed, left achilles tendon repair, left testicle surgery, total of 4 cardiac stents,bone marrow aspiration Past Anesthesia/Blood Transfusion Reactions: No Reported Reaction Additional Past Anesthesia/Blood Transfusion Reaction / Comment(s): no hx blood transfusion Date of Last Stent Placement:: 05/29/2019 Past Psychological History: No Psychological Hx Reported Smoking Status: Former smoker Past Alcohol Use History: None Reported Past Drug Use History: None Reported - Past Family History Mother Family Medical History: Cancer Father Family Medical History: CVA/TIA, Myocardial Infarction ([place]) Additional Family Medical History / Comment(s): from a [place] at the age of 86. General Exam - General Exam Comments Initial Comments: This is a well-developed well-nourished awake alert oriented 4 male Limitations: no limitations General appearance: alert, in no apparent distress Head exam: Present: atraumatic, normocephalic, normal inspection Eye exam: Present: normal appearance, PERRL, EOMI. Absent: scleral icterus, conjunctival injection, periorbital swelling ENT exam: Present: mucous membranes dry Neck exam: Present: normal inspection, full ROM, other (No stridor JVD or bruits). Absent: tenderness, meningismus, lymphadenopathy Respiratory exam: Present: normal lung sounds bilaterally. Absent: respiratory distress, wheezes, rales, rhonchi, stridor Cardiovascular Exam: Present: regular rate, normal rhythm, normal heart sounds. Absent: systolic murmur, diastolic murmur, rubs, gallop, clicks GI/Abdominal exam: Present: soft, normal bowel sounds. Absent: distended, tenderness, guarding, rebound, rigid, bruit, pulsatile mass Extremities exam: Present: normal inspection, full ROM, normal capillary refill. Absent: tenderness, pedal edema, joint swelling, calf tenderness Back exam: Present: normal inspection Neurological exam: Present: alert, oriented X3, CN II-XII intact Psychiatric exam: Present: normal affect, normal mood Skin exam: Present: warm, dry, intact, normal color. Absent: rash Course Vital Signs 04/30/22 09:51 Temperature 98.5 F Pulse Rate 97 Respiratory 16 Rate Blood Pressure 110/72 O2 Sat by Pulse 98 Oximetry - Reevaluation(s) Reevaluation #1: 04/30/22 13:51 Patient has had thus far minimal improvement he did get IV fluids he was also ordered IV magnesium for the hypomagnesemia. He does demonstrate evidence of clinical dehydration. Medical Decision Making - Medical Decision Making I did discuss findings with patient family as well as Dr. Ortega patient will be admitted with IV hydration and further monitoring GI consultation - Lab Data Result diagrams: 04/30/22 11:10 04/30/22 11:10 Lab Results 04/30/22 04/30/22 04/30/22 Range/Units 11:10 11:10 11:10 WBC 4.0 (3.8-10.6) k/uL RBC 3.20 L (4.30-5.90) m/uL Hgb 10.9 L (13.0-17.5) gm/dL Hct 31.4 L (39.0-53.0) % MCV 98.2 D (80.0-100.0) fL MCH 34.0 (25.0-35.0) pg MCHC 34.6 (31.0-37.0) g/dL RDW 13.5 (11.5-15.5) % Plt Count 139 L (150-450) k/uL MPV 8.2 Neutrophils % 91 % Lymphocytes % 2 % Monocytes % 5 % Eosinophils % 0 % Basophils % 0 % Neutrophils # 3.7 (1.3-7.7) k/uL Lymphocytes # 0.1 L (1.0-4.8) k/uL Monocytes # 0.2 (0-1.0) k/uL Eosinophils # 0.0 (0-0.7) k/uL Basophils # 0.0 (0-0.2) k/uL Sodium 133 L (137-145) mmol/L Potassium 3.8 (3.5-5.1) mmol/L Chloride 101 (98-107) mmol/L Carbon Dioxide 23 (22-30) mmol/L Anion Gap 9 mmol/L BUN 18 (9-20) mg/dL Creatinine 1.24 (0.66-1.25) mg/dL Est GFR (CKD-EPI)AfAm 68 (>60 ml/min/1.73 sqM) Est GFR (CKD-EPI)NonAf 59 (>60 ml/min/1.73 sqM) Glucose 96 (74-99) mg/dL Calcium 7.8 L (8.4-10.2) mg/dL Magnesium 1.2 L (1.6-2.3) mg/dL Total Bilirubin 1.3 (0.2-1.3) mg/dL AST 32 (17-59) U/L ALT 22 (4-49) U/L Alkaline Phosphatase 59 (38-126) U/L Creatine Kinase 316 H (55-170) U/L Troponin I (0.000-0.034) ng/mL Total Protein 5.9 L (6.3-8.2) g/dL Albumin 3.7 (3.5-5.0) g/dL Lipase 38 (23-300) U/L Urine Color Yellow Urine Appearance Clear (Clear) Urine pH 5.5 (5.0-8.0) Ur Specific [place] 1.020 (1.001-1.035) Urine Protein 1+ H (Negative) Urine Glucose (UA) Negative (Negative) Urine Ketones Negative (Negative) Urine Blood Negative (Negative) Urine Nitrite Negative (Negative) Urine Bilirubin Negative (Negative) Urine Urobilinogen <2.0 (<2.0) mg/dL Ur Leukocyte Esterase Negative (Negative) Urine RBC 1 (0-5) /hpf Urine WBC 1 (0-5) /hpf Ur Squamous Epith Cells <1 (0-4) /hpf Urine Mucus Rare H (None) /hpf 04/30/22 Range/Units 11:10 WBC (3.8-10.6) k/uL RBC (4.30-5.90) m/uL Hgb (13.0-17.5) gm/dL Hct (39.0-53.0) % MCV (80.0-100.0) fL MCH (25.0-35.0) pg MCHC (31.0-37.0) g/dL RDW (11.5-15.5) % Plt Count (150-450) k/uL MPV Neutrophils % % Lymphocytes % % Monocytes % % Eosinophils % % Basophils % % Neutrophils # (1.3-7.7) k/uL Lymphocytes # (1.0-4.8) k/uL Monocytes # (0-1.0) k/uL Eosinophils # (0-0.7) k/uL Basophils # (0-0.2) k/uL Sodium (137-145) mmol/L Potassium (3.5-5.1) mmol/L Chloride (98-107) mmol/L Carbon Dioxide (22-30) mmol/L Anion Gap mmol/L BUN (9-20) mg/dL Creatinine (0.66-1.25) mg/dL Est GFR (CKD-EPI)AfAm (>60 ml/min/1.73 sqM) Est GFR (CKD-EPI)NonAf (>60 ml/min/1.73 sqM) Glucose (74-99) mg/dL Calcium (8.4-10.2) mg/dL Magnesium (1.6-2.3) mg/dL Total Bilirubin (0.2-1.3) mg/dL AST (17-59) U/L ALT (4-49) U/L Alkaline Phosphatase (38-126) U/L Creatine Kinase (55-170) U/L Troponin I 0.032 (0.000-0.034) ng/mL Total Protein (6.3-8.2) g/dL Albumin (3.5-5.0) g/dL Lipase (23-300) U/L Urine Color Urine Appearance (Clear) Urine pH (5.0-8.0) Ur Specific [place] (1.001-1.035) Urine Protein (Negative) Urine Glucose (UA) (Negative) Urine Ketones (Negative) Urine Blood (Negative) Urine Nitrite (Negative) Urine Bilirubin (Negative) Urine Urobilinogen (<2.0) mg/dL Ur Leukocyte Esterase (Negative) Urine RBC (0-5) /hpf Urine WBC (0-5) /hpf Ur Squamous Epith Cells (0-4) /hpf Urine Mucus (None) /hpf - Radiology Data Radiology results: image reviewed (I did review the x-rays. Patient does have evidence of a left lower lobe infiltrate also nonspecific bowel gas on the KUB.) Critical Care Time Critical Care Time: Yes Total Critical Care Time: 31 Critical Care Time: Creatinine was recently exposed physical labs x-rays review of old charting that was available discussed with patient family regarding findings reevaluation the patient discussed with Dr. Ortega. The findings Disposition Clinical Impression: Hypomagnesemia syndrome, Dehydration, Pneumonia, Lymphoma, Failure to thrive in adult, Gastroenteritis Disposition: ADMITTED IP TO THIS [facility] Condition: Fair Referrals: Jerome Rivas MD [Primary Care Provider] - 1-2 days Decision Date: 04/30/22 Decision Time: 13:55
--- NOTE | 2022-04-30 11:02 | XR ---
EXAMINATION TYPE: XR chest 2V DATE OF EXAM: 04/30/2022 COMPARISON: CT October 13, 2021 HISTORY: Coughing. History of lymphoma. TECHNIQUE: Frontal and lateral views of the chest are obtained. FINDINGS: Stable right internal jugular Mediport catheter. There is patchy left basilar opacity on fr ontal view less well seen on lateral view. Right lung is clear. The cardiac silhouette size is withi n normal limits. Slight scoliotic curvature to the upper thoracic spine is redemonstrated. IMPRESSION: Patchy left basilar acute infiltrate and/or atelectasis.
--- NOTE | 2022-04-30 11:03 | XR ---
EXAMINATION TYPE: XR KUB DATE OF EXAM: 04/30/2022 10:57 AM CLINICAL HISTORY: History of lymphoma with weakness and nausea. TECHNIQUE: Two Upright KUB images of the abdomen are obtained. COMPARISON: CT October 13, 2021. FINDINGS: Scattered gas is seen in non-distended small and large bowel loops. Some air-fluid levels i n the left upper to mid abdomen are noted which is nonspecific finding. Patchy left basilar opacity c onsistent with acute infiltrate and/or atelectasis. No free air. Moderate axial joint space loss in b oth hips. IMPRESSION: Overall nonspecific and favor nonobstructive bowel gas pattern.
[2022-04-30 11:35] LABS: Basophils % (A) 0 %; Eosinophils % (A) 0 %; HCT 31.4 % (39.0-53.0); HGB 10.9 gm/dL (13.0-17.5); Lymphocytes # (A) 0.1 k/uL (1.0-4.8); Lymphocytes % (A) 2 %; MCHC 34.6 g/dL (31.0-37.0); Mean Platelet Volume 8.2; Monocytes # (A) 0.2 k/uL (0-1.0); Monocytes % (A) 5 %; Neutrophils # (A) 3.7 k/uL (1.3-7.7); Neutrophils % (A) 91 %; Platelet Count 139 k/uL (150-450); RDW 13.5 % (11.5-15.5)
[2022-04-30 11:36] LABS: MCV 98.2 fL (80.0-100.0)
[2022-04-30 11:38] LABS: Albumin 3.7 g/dL (3.5-5.0); Calcium 7.8 mg/dL (8.4-10.2); Magnesium 1.2 mg/dL (1.6-2.3); Potassium 3.8 mmol/L (3.5-5.1); Total Bilirubin 1.3 mg/dL (0.2-1.3); Total Protein 5.9 g/dL (6.3-8.2)
[2022-04-30 13:09] LABS: Appearance,Urine Clear (Clear); Bilirubin,Urine Negative (Negative); Blood,Urine Negative (Negative); Color,Urine Yellow; Glucose,Urine (UA) Negative (Negative); Ketones,Urine Negative (Negative); Leukocyte Esterase,Urine Negative (Negative); Mucus,Urine Rare /hpf; Nitrite,Urine Negative (Negative); PH, Urine 5.5 (5.0-8.0); Protein,Urine 1+ (Negative); RBC,Urine 1 /hpf (0-5); Squamous Epithelial Cell,Urine <1 /hpf (0-4); Urobilinogen,Urine <2.0 mg/dL (<2.0); WBC,Urine 1 /hpf (0-5)
[2022-04-30] MEDS: MAGNESIUM SULFATE-D5W PMX 1 GM in DEXTROSE/WATER 1 100ML.BAG IVPB SCH ×2 (13:32→14:38)
[2022-04-30] MEDS ORDERED: ONDANSETRON 4 MG/2 ML VIAL IVP PRN (13:55)
[2022-04-30] MEDS ORDERED: NALOXONE 0.4 MG/ML 1 ML VIAL IV PRN (13:55)
[2022-04-30] MEDS ORDERED: ACETAMINOPHEN TAB 325 MG TAB PO PRN (13:55)
[2022-04-30] MEDS ORDERED: cefTRIAXone IN SWFI 1,000 MG/10 ML SYRINGE IVP STA (13:57)
[2022-04-30] MEDS ORDERED: AZITHROMYCIN 500 MG in SODIUM CHLORIDE 0.9% 250 ML IVPB STA (13:58)
[2022-04-30] MEDS: SODIUM CHLORIDE 0.9% 1,000 ML IV SCH (15:47)
--- NOTE | 2022-04-30 17:10 | P.HPIM ---
History of Present Illness H&P Date: 04/30/22 Chief Complaint: Diarrhea This is a pleasant 71-year-old patient who follows a Dr. Jerome Rivas. Chronic stable medical conditions include CAD with stent, atrial fibrillation, hyperlipidemia, osteomyelitis, kidney stones, or acute migraines, squamous cell skin cancer. He has a DVT in the arm previously. Patient has a diagnosis of non-Hodgkin's lymphoma has had 6 rounds of chemotherapy last reading of December 2021. Patient does follow with also one locally with /oncologist from the [place] area. Patient is in the process of getting her car T-cell therapy. T cells have been extracted and will be infused in May. Patient will be getting a breakthrough chemotherapy soon. Patient now presents with diarrhea for at least 2 days. Multiple. Described as chocolate milk. Has had nausea and decreased appetite and weight loss. Has had some chills. No fever. Tired. Some abdominal discomfort. Review of systems: GEN.: Tired, weight loss, decreased appetite, chills EYES: None HEENT: None NECK: None RESPIRATORY: None CARDIOVASCULAR: None GASTROINTESTINAL: As above GENITOURINARY: None MUSCULOSKELETAL: None LYMPHATICS: None HEMATOLOGICAL: None PSYCHIATRY: None NEUROLOGICAL: None Past medical history to include: CAD with stent, hyperlipidemia, osteoporosis, kidney stones, ocular migraines, for treatment posterior vitreous separation, non-Hodgkin's lymphoma getting chemo, squamous cell skin cancer, DVT in the arm Social history: . Smoked for 10 years stopped in . No alcohol. Physical examination: VITAL SIGNS: 98.5, 97, 16, 110-72, 98% room air GENERAL: BMI 22.4, reclining but awake, tired. EYES: Pupils equal. Conjunctiva palel. HEENT: External appearance of nose and ears normal, oral cavity grossly normal. NECK: JVD not raised; masses not palpable. HEART: First and second heart sounds are normal; no edema. LUNGS: Respiratory rate normal; clear to auscultation. ABDOMEN: Soft, right lower quadrant tenderness, no guarding rigidity, liver spleen not palpable, no masses palpable. PSYCH: Alert and oriented x3; mood and affect tiredl. MUSCULOSKELETAL:No Clubbing/cyanosis;muscles-grossly intact NEUROLOGICAL: Cranial nerves grossly intact; no facial asymmetry, power and sensation grossly intact. LYMPHATICS: No lymph nodes palpable in the axilla and neck INVESTIGATIONS, reviewed in the clinical context: White count 4 hemoglobin 10.9 platelets 139 potassium 3.8 creatinine 1.24 COVID 19 PCR: Not detected EKG tracing personally reviewed by me-normal sinus rhythm, rate 84 Chest x-ray film personally reviewed by me-hyperinflation Assessment and plan: -This is a patient underlying non-Hodgkin's lymphoma getting chemotherapy, presents at least 2 days of diarrhea. Described as chocolate milk. Has right lower quadrant tenderness. Some chills. No documented fever. Loss of appetite and weight loss. Stool rule out C. diff. Consult GI. Clear liquid diet. -Hyperlipidemia Crestor, Zetia -CAD Hold aspirin -Non-Hodgkin's lymphoma. Follows with Dr. Ann. Has received at least 6 rounds of chemotherapy. In the process of getting her car T-cell therapy. -Acute medical debility, multifactorial IV fluids IV fluids. Rule out C. diff. Consult GI. Resume home medications. Liquid diet. Consult oncology. Patient does not have any respiratory symptoms. Disregard check stat x-ray finding reported Past Medical History Past Medical History: Atrial Fibrillation, Coronary Artery Disease (CAD), Cancer, Chest Pain / Angina, Eye Disorder, Hyperlipidemia, Osteoarthritis (OA) Additional Past Medical History / Comment(s): Hx: kidney stones, ocular migraines, posterior vitreous separation, dx w/ mesenteric mass which ended up being Non-Hodgkin's Lymphoma-6 rounds of chemo-last round 12-08-21, squamous cell skin cancer, blood clot in arm History of Any Multi-Drug Resistant Organisms: None Reported Past Surgical History: Heart Catheterization With Stent, Orthopedic Surgery Additional Past Surgical History / Comment(s): Sx: Right knee arthroscopy, bilateral great toe bone spurs removed, left achilles tendon repair, left testicle surgery, total of 4 cardiac stents,bone marrow aspiration Past Anesthesia/Blood Transfusion Reactions: No Reported Reaction Additional Past Anesthesia/Blood Transfusion Reaction / Comment(s): no hx blood transfusion Date of Last Stent Placement:: 05/29/2019 Past Psychological History: No Psychological Hx Reported Smoking Status: Former smoker Past Alcohol Use History: None Reported Past Drug Use History: None Reported - Past Family History Mother Family Medical History: Cancer Father Family Medical History: CVA/TIA, Myocardial Infarction ([place]) Additional Family Medical History / Comment(s): from a [place] at the age of 86. Medications and Allergies Home Medications Medication Instructions Recorded Confirmed Type Aspirin 81 mg PO DAILY #30 01/06/17 04/30/22 Rx Multivitamins, Thera [Multivitamin 1 tab PO DAILY 07/15/19 04/30/22 History (formulary)] Ezetimibe [Zetia] 10 mg PO DAILY 02/01/21 04/30/22 History Rosuvastatin Calcium [Crestor] 40 mg PO HS 02/01/21 04/30/22 History Turmeric Root Extract [Turmeric] 500 mg PO DAILY 04/30/22 04/30/22 History diphenhydrAMINE HCL [Benadryl] 25 mg PO HS 04/30/22 04/30/22 History Allergies Allergy/AdvReac Type Severity Reaction Status Date / Time No Known Allergies Allergy Verified 04/30/22 11:18 Physical Exam Vitals: Vital Signs Temp Pulse Resp BP Pulse Ox 04/30/22 16:35 98.5 F 78 18 106/62 95 04/30/22 14:40 81 18 95/63 97 04/30/22 09:51 98.5 F 97 16 110/72 98 Intake and Output 04/30/22 04/30/22 04/30/22 06:59 14:59 22:59 Other: Weight 77.111 kg Results CBC & Chem 7: 04/30/22 11:10 04/30/22 11:10 Labs: Abnormal Lab Results - Last 24 Hours (Table) 04/30/22 04/30/22 04/30/22 Range/Units 11:10 11:10 11:10 RBC 3.20 L (4.30-5.90) m/uL Hgb 10.9 L (13.0-17.5) gm/dL Hct 31.4 L (39.0-53.0) % Plt Count 139 L (150-450) k/uL Lymphocytes # 0.1 L (1.0-4.8) k/uL Sodium 133 L (137-145) mmol/L Calcium 7.8 L (8.4-10.2) mg/dL Magnesium 1.2 L (1.6-2.3) mg/dL Creatine Kinase 316 H (55-170) U/L Total Protein 5.9 L (6.3-8.2) g/dL Urine Protein 1+ H (Negative) Urine Mucus Rare H (None) /hpf
[2022-04-30] MEDS: ATORVASTATIN 80 MG TAB PO SCH (20:56)
[2022-04-30] MEDS: diphenhydrAMINE 25 MG CAP PO SCH (20:56)
[2022-05-01] MEDS: SODIUM CHLORIDE 0.9% 1,000 ML IV SCH ×3 (01:07→14:39)
[2022-05-01] MEDS: MULTIVITAMINS, THERA 1 EACH TAB PO SCH (08:09)
[2022-05-01] MEDS: PANTOPRAZOLE 40 MG/10 ML VIAL IV SCH (08:09)
[2022-05-01] MEDS: EZETIMIBE 10 MG TAB PO SCH (08:09)
[2022-05-01] MEDS ORDERED: ASPIRIN 81 MG PO SCH (09:00)
--- NOTE | 2022-05-01 11:49 | P.CONS ---
History of Present Illness - Reason for Consult Consult date: 05/01/22 Gastroenteritis with diarrhea, dehydration Requesting physician: Johnathan Ortega - Chief Complaint Diarrhea, weakness - History of Present Illness Tayler hinojosa 71-year-old male who presented to the emergency department yesterday with complaints of diarrhea for 3-4 days duration, decreased appetite, and increased weakness. Patient has a past medical history including non- Hodgkin's lymphoma diagnosed in 2019 for which she is being treated at [facility] in [place], hyperlipidemia, atrial fibrillation, and coronary artery disease. States he recently had blood work and he is to follow-up for treatment. He states diarrhea started 3-4 days ago it was watery, no associated abdominal pain or cramping, no associated nausea or vomiting. He denies any blood in his stool or black stool. Denies any sick contacts recently, no recent travel, no recent antibiotics, and no new medications. He denies any fevers or chills, body aches, abdominal pain, nausea or vomiting at this time. He states his diarrhea is improving. He states he was having 6 episodes of diarrhea, watery for the last 3-4 days duration. He states now he had to follow this morning which are more formed. C. diff has not been collected due to formed stool, stool culture sent. Shouldn't states he has had 40 pound weight loss over last 6 months duration, decreased appetite due to his non-Hodgkin's lymphoma and chemotherapy, states his taste buds have changed and nothing tastes good. Patient does have a history of GI bleed and underwent colonoscopy done 05/25/2021 by Neel Dickens with findings of mild diverticulosis. Labs WBC 4.0 hemoglobin 10.9 hematocrit 31 platelet count 139,000 sodium 133 potassium 3.8 BUN 18 creatinine 1.24 magnesium 1.2 total bilirubin 1.3 AST 32 ALT 22 alkaline phosphatase 59 creatinine kinase 316 Review of Systems REVIEW OF SYSTEMS: CARDIOPULMONARY: No chest pain or shortness of breath. Gastrointestinal: No abdominal pain, cramping or epigastric pain. No nausea or vomiting. No hematemesis, coffee-ground emesis. Diarrhea last 3-4 days, watery, loose. No more formed. No rectal bleeding, or melena. GENITOURINARY: No dysuria or hematuria. MUSCULOSKELETAL: Reports normal range of motion. SKIN: No rashes. No jaundice. ENDOCRINE: No chills, fevers. No excessive weight gain or loss. No polydipsia or polyuria. PSYCHIATRIC: Unremarkable. NEUROLOGY: No change in mental status. Denies dizziness, headache. ENT: Vision unremarkable. CONSTITUTIONAL: Weight loss 40 pounds over last 6 months, decreased appetite. No fever, chills, night sweats. Past Medical History Past Medical History: Atrial Fibrillation, Coronary Artery Disease (CAD), Cancer, Chest Pain / Angina, Eye Disorder, Hyperlipidemia, Osteoarthritis (OA) Additional Past Medical History / Comment(s): Hx: kidney stones, ocular migraines, posterior vitreous separation, dx w/ mesenteric mass which ended up being Non-Hodgkin's Lymphoma-6 rounds of chemo-last round 12-08-21, squamous cell skin cancer, blood clot in arm History of Any Multi-Drug Resistant Organisms: None Reported Past Surgical History: Heart Catheterization With Stent, Orthopedic Surgery Additional Past Surgical History / Comment(s): Sx: Right knee arthroscopy, bilateral great toe bone spurs removed, left achilles tendon repair, left te sticle surgery, total of 4 cardiac stents,bone marrow aspiration Past Anesthesia/Blood Transfusion Reactions: No Reported Reaction Additional Past Anesthesia/Blood Transfusion Reaction / Comm: no hx blood transfusion Date of Last Stent Placement:: 05/29/2019 Past Psychological History: No Psychological Hx Reported Additional Psychological History / Comment(s): . Smoking Status: Former smoker Past Alcohol Use History: None Reported Additional Past Alcohol Use History / Comment(s): Started smoking in 1966 and quit in 1977, 1 PPD. Past Drug Use History: None Reported - Past Family History Mother Family Medical History: Cancer Father Family Medical History: CVA/TIA, Myocardial Infarction ([place]) Additional Family Medical History / Comment(s): from a [place] at the age of 86. Medications and Allergies Home Medications Medication Instructions Recorded Confirmed Type Aspirin 81 mg PO DAILY #30 01/06/17 04/30/22 Rx Multivitamins, Thera [Multivitamin 1 tab PO DAILY 07/15/19 04/30/22 History (formulary)] Ezetimibe [Zetia] 10 mg PO DAILY 02/01/21 04/30/22 History Rosuvastatin Calcium [Crestor] 40 mg PO HS 02/01/21 04/30/22 History Turmeric Root Extract [Turmeric] 500 mg PO DAILY 04/30/22 04/30/22 History diphenhydrAMINE HCL [Benadryl] 25 mg PO HS 04/30/22 04/30/22 History Allergies Allergy/AdvReac Type Severity Reaction Status Date / Time No Known Allergies Allergy Verified 04/30/22 11:18 Physical Exam Vitals: Vital Signs Temp Pulse Pulse Resp BP BP Pulse Ox 05/01/22 05:00 97.6 F 65 16 104/65 97 04/30/22 20:03 97.9 F 66 16 89/48 96 04/30/22 20:00 16 04/30/22 17:20 102.3 F H 75 18 104/64 96 04/30/22 16:35 98.5 F 78 18 106/62 95 04/30/22 14:40 81 18 95/63 97 04/30/22 09:51 98.5 F 97 16 110/72 98 Intake and Output 04/30/22 05/01/22 05/01/22 22:59 06:59 14:59 Intake Total 1560 Balance 1560 Intake: Intake, IV Titration 1560 Amount Sodium Chloride 0.9% 1, 1560 000 ml @ 130 mls/hr IV . Q7H42M [facility] Rx#:[id number] Other: Voiding Method Toilet # Voids 0 # Bowel Movements 1 Weight 77.111 kg General appearance: The patient is alert, oriented, appears in no acute distress. HET: Head is normocephalic and atraumatic. Conjunctiva pink. Sclera anicteric. Neck: Supple without lymphadenopathy. Trachea midline. Heart: S1 S2. Regular rate and rhythm. Lungs: Clear to auscultation. Abdomen: Soft, nontender, nondistended with bowel sounds. No guarding or rigidity. Skin: No rashes. No jaundice. Extremities: Normal skin color and turgor. No pedal edema. Neurological: No focal deficits. Alert and oriented x3. Results CBC & Chem 7: 04/30/22 11:10 04/30/22 11:10 Labs: Abnormal Lab Results - Last 24 Hours (Table) 04/30/22 04/30/22 04/30/22 Range/Units 11:10 11:10 11:10 RBC 3.20 L (4.30-5.90) m/uL Hgb 10.9 L (13.0-17.5) gm/dL Hct 31.4 L (39.0-53.0) % Plt Count 139 L (150-450) k/uL Lymphocytes # 0.1 L (1.0-4.8) k/uL Sodium 133 L (137-145) mmol/L Calcium 7.8 L (8.4-10.2) mg/dL Magnesium 1.2 L (1.6-2.3) mg/dL Creatine Kinase 316 H (55-170) U/L Total Protein 5.9 L (6.3-8.2) g/dL Urine Protein 1+ H (Negative) Urine Mucus Rare H (None) /hpf Comments: KUB x-ray: Overall nonspecific in favor nonobstructive bowel gas pattern Chest x-ray: Patchy left basilar acute infiltrate and/or atelectasis Assessment and Plan (1) Diarrhea Narrative/Plan: 71-year-old male who presented to the hospital with diarrhea 3-4 days duration with no associated nausea vomiting fever, abdominal pain or cramping. Likelihood is patient may have mild gastroenteritis likely viral in nature. Patient also may be somewhat medication related with history of non-Hodgkin's lymphoma who is status post chemotherapy. Patient is also can be having follow- up with his oncologist in [place]. Patient was noted to be dehydrated on admission with an elevated creatinine kinase, hypo-magnesium which has been replaced with fluids and magnesium. Patient also with weight loss up to 40 pounds over the last 6 months duration due to poor appetite and poor taste from lymphoma and treatment. Diarrhea is improving, stool is forming, unable to collect C. diff due to formed stool. Stool culture is ordered and pending. Continue with advancement in diet. No plans on endoscopic evaluation at this t [facility]. Current Visit: Yes Status: Acute Code(s): R19.7 - DIARRHEA, UNSPECIFIED SNOMED Code(s): 50257680 (2) Hypomagnesemia syndrome Current Visit: Yes Status: Acute Code(s): E83.42 - HYPOMAGNESEMIA SNOMED Code(s): 171808921 (3) Lymphoma Current Visit: Yes Status: Acute Code(s): C85.90 - NON-HODGKIN LYMPHOMA, UNSPECIFIED, UNSPECIFIED SITE SNOMED Code(s): 374446391 Plan: 1. Continue symptomatic and supportive care 2. Advance to full liquid diet, advance as tolerated 3. Stool culture ordered 4. C. diff ordered however not collected due to formed stool 5. Ensure order 6. If diarrhea continues, can add Imodium as needed 7. No plans on endoscopic evaluation Thank you for this consultation, we will continue to follow. Dr. Howadr Carrizales I agree with the dictator's note, documented as a scribe by Tiara Carty.
--- NOTE | 2022-05-01 15:27 | P.PN ---
Subjective Progress Note Date: 05/01/22 This is a pleasant 71-year-old patient who follows a Dr. Jerome Rivas. Chronic stable medical conditions include CAD with stent, atrial fibrillation, hyperlipidemia, osteomyelitis, kidney stones, or acute migraines, squamous cell skin cancer. He has a DVT in the arm previously. Patient has a diagnosis of non-Hodgkin's lymphoma has had 6 rounds of chemotherapy last reading of December 2021. Patient does follow with also one locally with /oncologist from the [place] area. Patient is in the process of getting her car T-cell therapy. T cells have been extracted and will be infused in May. Patient will be getting a breakthrough chemotherapy soon. Patient now presents with diarrhea for at least 2 days. Multiple. Described as chocolate milk. Has had nausea and decreased appetite and weight loss. Has had some chills. No fever. Tired. Some abdominal discomfort. 05/01/2022 Patient is seen and evaluated in follow-up with GI consulted along with oncology. Patient was admitted yesterday with hypomagnesemia and found to be 1.2 and replaced per protocol and there were no follow-up magnesium levels ordered for this morning and have placed an order for repeat magnesium. GI following with no plans for surgical intervention at this time and has advanced diet watching for tolerance. Patient reports he has not had anymore diarrhea this morning and tolerating diet. Oncology consulted for history of non- Hodgkin's lymphoma and currently pending. Patient is afebrile denies chest pain or shortness of breath. Patient reports some mild lower abdominal tenderness although nothing like yesterday. Encouraged increased activity as tolerated and will follow-up with repeat labs. Review of systems: Constitutional: No reports of fatigue, fever, or chills Cardiovascular: No reports of chest pain or palpitations Respiratory: No reports of shortness of breath or cough GI: No reports of nausea, vomiting, reports no diarrhea today : No reports of dysuria or retention Neurovascular: No reports of weakness or numbness All medications have been reviewed Physical examination: GENERAL: Awake, alert and oriented 3, thin built, elderly appearing male EYES: Pupils equal. Conjunctiva palel. HEENT: External appearance of nose and ears normal, oral cavity grossly normal. NECK: JVD not raised; masses not palpable. HEART: First and second heart sounds are normal; no edema. LUNGS: Respiratory rate normal; clear to auscultation. ABDOMEN: Soft, right lower quadrant tenderness on palpation, no guarding rigidity, no masses palpable. PSYCH: Alert and oriented x3; mood and affect tiredl. MUSCULOSKELETAL:No Clubbing/cyanosis NEUROLOGICAL: Cranial nerves grossly intact; no facial asymmetry, power and sensation grossly intact. LYMPHATICS: No lymph nodes palpable in the axilla and neck Assessment: Diarrhea with abdominal pain, C. diff were ruled out Hyperlipidemia Hypomagnesemia Coronary artery disease History of non-Hodgkin's lymphoma, currently receiving chemotherapy and T-cell therapy Acute medical debility, multifactorial GI prophylaxis DVT prophylaxis Full code Plan: Recommend continue with IV hydration and will decrease the rate patient was on 130 mL's per hour and is tolerating oral intake GI has evaluated the patient with no plans for surgical intervention recommending increasing diet Oncology consulted and pending at this time as patient is actively receiving treatment for non-Hodgkin's lymphoma C. diff testing was ordered but stool was completely formed and will cancel C. diff, ruled out Encouraged increased activity as tolerated and encouraged increased oral intake Magnesium continues to be low at 1.6 and will recommend replacement per protocol and follow-up with repeat labs Possible discharge in 24 hours The impression and plan of care has been dictated by Le Payne, Nurse Practitioner as directed. Dr. Krista MD I have performed a history and examination and MDM of this patient, discussed the same with the dictator, and agree with the dictator's assessment and plan as written ,documented as a scribe. Based on total visit time, I have performed more than 50% of the visit. Objective - Vital Signs Vital signs: Vital Signs Temp 97.6 F 05/01/22 05:00 Pulse 65 05/01/22 05:00 Resp 16 05/01/22 05:00 BP 104/65 05/01/22 05:00 Pulse Ox 97 05/01/22 05:00 FiO2 Intake & Output 04/30/22 05/01/22 05/01/22 18:59 06:59 18:59 Intake Total 1560 Balance 1560 Weight 77.111 kg Intake: Intake, IV Titration 1560 Amount Sodium Chloride 0.9% 1, 1560 000 ml @ 130 mls/hr IV . Q7H42M [facility] Rx#:[id number] Other: Voiding Method Toilet # Voids 0 0 # Bowel Movements 1 - Labs CBC & Chem 7: 04/30/22 11:10 04/30/22 11:10 Labs: Abnormal Lab Results - Last 24 Hours (Table) 04/30/22 04/30/22 04/30/22 Range/Units 11:10 11:10 11:10 RBC 3.20 L (4.30-5.90) m/uL Hgb 10.9 L (13.0-17.5) gm/dL Hct 31.4 L (39.0-53.0) % Plt Count 139 L (150-450) k/uL Lymphocytes # 0.1 L (1.0-4.8) k/uL Sodium 133 L (137-145) mmol/L Calcium 7.8 L (8.4-10.2) mg/dL Magnesium 1.2 L (1.6-2.3) mg/dL Creatine Kinase 316 H (55-170) U/L Total Protein 5.9 L (6.3-8.2) g/dL Urine Protein 1+ H (Negative) Urine Mucus Rare H (None) /hpf
[2022-05-01 17:29] VITALS: BMI 22.4
[2022-05-01] MEDS: diphenhydrAMINE 25 MG CAP PO SCH (20:06)
[2022-05-01] MEDS: ATORVASTATIN 80 MG TAB PO SCH (20:06)
--- NOTE | 2022-05-01 22:12 | P.CONS ---
History of Present Illness - Reason for Consult Consult date: 05/01/22 NHL Requesting physician: Johnathan Ortega - Chief Complaint diarrhea - History of Present Illness Mr. Edwards is a pleasant male pt of Dr. Joon Ramesh who present in 02/01 to [facility] with c/o severe abd pain, diagnosed with acute diverticulitis, CT abd revealed 3.5cm mesenteric mass inferior to pancreatic head, unknown etiology. He denied GI symptoms, admitted mild LUQ abdominal pain. Follow up CT with attempted Bx Jun 2018 revealed increase in size of mass to 3.6X4.6 cm but was cancelled as IR felt no safe pathway. The patient denied anorexia or weight loss, admitted night sweats X 3-4 years. He ultimately had bx around 07/[address] 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 August 2018 he started bendamustine and rituxan. After 1 cycle his abd pain resolved, he did have some moderate nausea. 12/2018 he had completed 4 cycles, PET showed lesion reduced in size. After 6 cycles he cont on maintenance rituxan. 06/2019 he had 2 cardiac stents placed with Dr. Goncalves. Rt forearm lesion-sq cell carcinoma. 07/2020 PET, nothing suspicious. He completed maintenance rituxan 12/05. 06/2021 PET showed FDG increase suspicious for recurrent disease. He was seen by Dr. Powers at [facility], Bx + DLBCL. He had R-CHOP x 5, PET complete response. Completed 6 cycles in November. Sept bone marrow was neg. Pt has been following with Dr. Powers. Plan was for CarT in May. He had his T cells harvested last week. Pt due to have a chemo soon, in anticipation for chemo and CarT infusion next month. Pt admitted with c/o severe diarrhea x 4 days. He was taking stool softeners for constipation for a few days. He went for a walk, c/o chills when he got home and then he started having diarrhea. He cont to progressively get weaker, he fell of toilet and struggled to get up. He was also experiencing nausea for "weeks", tried antiemetics sometimes. No nausea since here. His reports pt has some short term memory "blips", hard time concentrating. He was found low magnesium on adm, 1.2, mild anemia, elevated CK-probably from fall, normal renal function. He had a fever of 102.3F. Pancultures collected, Stool has been collected. CXR showing lt basilar infiltrate, KUB xray unremarkable. Empiric abx. Review of Systems 10 point ROS is neg except as stated in HPI Past Medical History Past Medical History: Atrial Fibrillation, Coronary Artery Disease (CAD), Cancer, Chest Pain / Angina, Eye Disorder, Hyperlipidemia, Osteoarthritis (OA) Additional Past Medical History / Comment(s): Hx: kidney stones, ocular migraines, posterior vitreous separation, dx w/ mesenteric mass which ended up being Non-Hodgkin's Lymphoma-6 rounds of chemo-last round 12-08-21, squamous cell skin cancer, blood clot in arm History of Any Multi-Drug Resistant Organisms: None Reported Past Surgical History: Heart Catheterization With Stent, Orthopedic Surgery Additional Past Surgical History / Comment(s): Sx: Right knee arthroscopy, bilateral great toe bone spurs removed, left achilles tendon repair, left testicle surgery, total of 4 cardiac stents,bone marrow aspiration Past Anesthesia/Blood Transfusion Reactions: No Reported Reaction Additional Past Anesthesia/Blood Transfusion Reaction / Comm: no hx blood transfusion Date of Last Stent Placement:: 05/29/2019 Past Psychological History: No Psychological Hx Reported Additional Psychological History / Comment(s): . Smoking Status: Former smoker Past Alcohol Use History: None Reported Additional Past Alcohol Use History / Comment(s): Started smoking in 1966 and quit in 1977, 1 PPD. Past Drug Use History: None Reported - Past Family History Mother Family Medical History: Cancer Father Family Medical History: CVA/TIA, Myocardial Infarction ([place]) Additional Family Medical History / Comment(s): from a [place] at the age of 86. Medications and Allergies Home Medications Medication Instructions Recorded Confirmed Type Aspirin 81 mg PO DAILY #30 01/06/17 04/30/22 Rx Multivitamins, Thera [Multivitamin 1 tab PO DAILY 07/15/19 04/30/22 History (formulary)] Ezetimibe [Zetia] 10 mg PO DAILY 02/01/21 04/30/22 History Rosuvastatin Calcium [Crestor] 40 mg PO HS 02/01/21 04/30/22 History Turmeric Root Extract [Turmeric] 500 mg PO DAILY 04/30/22 04/30/22 History diphenhydrAMINE HCL [Benadryl] 25 mg PO HS 04/30/22 04/30/22 History Allergies Allergy/AdvReac Type Severity Reaction Status Date / Time No Known Allergies Allergy Verified 04/30/22 11:18 Physical Exam Vitals: Vital Signs Temp Pulse Resp BP Pulse Ox 05/01/22 15:11 98.3 F 85 16 114/68 97 05/01/22 12:26 98.2 F 72 18 121/76 97 05/01/22 05:00 97.6 F 65 16 104/65 97 04/30/22 20:03 97.9 F 66 16 89/48 96 04/30/22 20:00 16 Intake and Output 05/01/22 05/01/22 05/01/22 06:59 14:59 22:59 Intake Total 1560 Balance 1560 Intake: Intake, IV Titration 1560 Amount Sodium Chloride 0.9% 1, 1560 000 ml @ 75 mls/hr IV . [id number] [facility] Rx#:[id number] Other: Voiding Method Toilet # Voids 2 Weight 77.111 kg - Constitutional General appearance: average body habitus, cooperative, no acute distress - EENT Eyes: anicteric sclerae, EOMI ENT: hearing grossly normal, normal oropharynx - Neck Neck: no lymphadenopathy - Respiratory Respiratory: bilateral: CTA - Cardiovascular Rhythm: regular Heart sounds: normal: S1, S2 Abnormal Heart Sounds: no systolic murmur, no diastolic murmur, no rub, no S3 Gallop, no S4 Gallop, no click, no other leg Peripheral Edema: bilateral: None - Gastrointestinal loud, gurgling BS General gastrointestinal: no absent bowel sounds, no decreased bowel sounds, no distended, no hepatomegaly, no hyperactive bowel sounds, no normal bowel sounds, no organomegaly, no rigid, no scaphoid, soft, no splenomegaly, no tenderness, no umbilical hernia, no ventral hernia - Integumentary Integumentary: pale - Neurologic Neurologic: CNII-XII intact - Musculoskeletal Musculoskeletal: generalized weakness - Psychiatric mild confusion, goes off topic or says things that have nothing to do with the current conversation Psychiatric: A&O x's 3, appropriate affect, intact judgment & insight Results CBC & Chem 7: 04/30/22 11:10 04/30/22 11:10 Labs: Microbiology - Last 24 Hours (Table) 05/01/22 09:11 Stool Culture - Preliminary Stool 04/30/22 11:10 Blood Culture - Preliminary Blood No Growth after 24 hours 04/30/22 11:12 Blood Culture - Preliminary Blood No Growth after 24 hours Chest x-ray: report reviewed Abdominal x-ray: report reviewed Assessment and Plan (1) Dehydration Current Visit: Yes Status: Acute Priority: High Code(s): E86.0 - DEHYDR ATION SNOMED Code(s): 78921135 (2) Diarrhea Current Visit: Yes Status: Acute Priority: High Code(s): R19.7 - DIARRHEA, UNSPECIFIED SNOMED Code(s): 28047823 (3) Lymphoma Current Visit: Yes Status: Acute Priority: High Code(s): C85.90 - NON- HODGKIN LYMPHOMA, UNSPECIFIED, UNSPECIFIED SITE SNOMED Code(s): 319134917 Plan: Agree with pancultures, stool studies and empiric abx. Supportive meds for nausea. Any treatment for NHL will be delayed until pt has recovered adequately from his current condition. Mild anemia, no intervention at this time. Mag replaced, 1.6 today
[2022-05-01] MEDS ORDERED: ONDANSETRON 4 MG/2 ML VIAL IVP PRN (22:13)
[2022-05-02] MEDS: SODIUM CHLORIDE 0.9% 1,000 ML IV SCH (03:44)
[2022-05-02] MEDS: MULTIVITAMINS, THERA 1 EACH TAB PO SCH (09:21)
[2022-05-02] MEDS: PANTOPRAZOLE 40 MG/10 ML VIAL IV SCH (09:21)
[2022-05-02] MEDS: EZETIMIBE 10 MG TAB PO SCH (09:21)
[2022-05-02 11:00] LABS: Chloride 111 mmol/L (98-107)
[2022-05-02 11:01] LABS: African American GFR (CKD) >90 (>60 ml/min/1.73 sqM); Anion Gap 5 mmol/L; Blood Urea Nitrogen 9 mg/dL (9-20); Calcium 7.4 mg/dL (8.4-10.2); Carbon Dioxide 21 mmol/L (22-30); Glucose 109 mg/dL (74-99); Magnesium 1.4 mg/dL (1.6-2.3); Non-African American GFR(CKD) 89 (>60 ml/min/1.73 sqM); Potassium 3.4 mmol/L (3.5-5.1); Sodium 137 mmol/L (137-145)
--- NOTE | 2022-05-02 11:39 | P.PN ---
Subjective Progress Note Date: 05/02/22 Principal diagnosis: Fever, NOS, diarrhea In f/u today pt report resolution of diarrhea, he is tolerating oral intake, no N,V, cough, SOB, and pain. Objective - Vital Signs Vital signs: Vital Signs Temp 97.4 F L 05/02/22 10:11 Pulse 71 05/02/22 10:11 Resp 16 05/02/22 10:11 BP 124/79 05/02/22 10:11 Pulse Ox 97 05/02/22 10:11 FiO2 Intake & Output 05/01/22 05/02/22 05/02/22 18:59 06:59 18:59 Weight 77.111 kg Other: Voiding Method Toilet Toilet # Voids 2 2 - Constitutional General appearance: Present: average body habitus, cooperative, no acute distress - EENT Eyes: Present: anicteric sclerae, EOMI ENT: Present: hearing grossly normal, normal oropharynx - Respiratory Respiratory: bilateral: CTA - Cardiovascular Rhythm: regular Heart sounds: normal: S1, S2 Abnormal Heart Sounds: Absent: systolic murmur, diastolic murmur, rub, S3 Gallop, S4 Gallop, click, other - Gastrointestinal General gastrointestinal: Present: normal bowel sounds, soft - Integumentary Integumentary: Present: pale - Neurologic Neurologic: Present: CNII-XII intact - Musculoskeletal Musculoskeletal: Present: generalized weakness, strength equal bilaterally - Psychiatric Psychiatric: Present: A&O x's 3, appropriate affect, intact judgment & insight - Labs CBC & Chem 7: 04/30/22 11:10 05/02/22 10:32 Labs: Abnormal Lab Results - Last 24 Hours (Table) 05/02/22 Range/Units 10:32 Potassium 3.4 L (3.5-5.1) mmol/L Chloride 111 H (98-107) mmol/L Carbon Dioxide 21 L (22-30) mmol/L Glucose 109 H (74-99) mg/dL Calcium 7.4 L (8.4-10.2) mg/dL Magnesium 1.4 L (1.6-2.3) mg/dL Microbiology - Last 24 Hours (Table) 05/01/22 09:11 Stool Culture - Preliminary Stool 04/30/22 11:10 Blood Culture - Preliminary Blood No Growth after 24 hours 11/14/22 11:12 Blood Culture - Preliminary Blood No Growth after 24 hours Assessment and Plan (1) Dehydration Current Visit: Yes Status: Acute Priority: High Code(s): E86.0 - DEHYDRATION SNOMED Code(s): 04111744 (2) Diarrhea Current Visit: Yes Status: Acute Priority: High Code(s): R19.7 - DIARRHEA, UNSPECIFIED SNOMED Code(s): 13957553 (3) Lymphoma Current Visit: Yes Status: Acute Priority: High Code(s): C85.90 - NON- HODGKIN LYMPHOMA, UNSPECIFIED, UNSPECIFIED SITE SNOMED Code(s): 249228058 Plan: Pancultures, so far neg at 24 hours. Pending final results. Empiric abx were stopped. Discussed briefly with IM STAFF OCCUPATIONAL THERAPIST. Awaiting finalization of cultures and no fever before DC. Anticipate tomorrow AM. Supportive meds for nausea, no c/o nausea today. Pt has not used antiemetic Treatment for NHL will be delayed until pt has recovered adequately from his current condition. He will be contacted by ofc for treatment sched. Mag replacement needed QOD since admit. Will need to be on supplement, Rx sent DrEstelita Attests: I have seen and examined pt, performed H&P, developed impression and plan of care. Discussed with dictator. Agree with documentation, dictated as a scribe.
--- NOTE | 2022-05-02 13:11 | P.PN ---
Subjective Progress Note Date: 05/02/22 Principal diagnosis: Diarrhea This is a pleasant 71-year-old male who presented to the emergency department yesterday with complaints of diarrhea for 3-4 days duration, decreased appetite, and increased weakness. Patient has a past medical history including non- Hodgkin's lymphoma diagnosed in 2019 for which she is being treated at [facility] in [place], hyperlipidemia, atrial fibrillation, and coronary artery disease. States he recently had blood work and he is to follow-up for treatment. He states diarrhea started 3-4 days ago it was watery, no associated abdominal pain or cramping, no associated nausea or vomiting. He denies any blood in his stool or black stool. Denies any sick contacts recently, no recent travel, no recent antibiotics, and no new medications. He denies any fevers or chills, body aches, abdominal pain, nausea or vomiting at this time. He states his diarrhea is improving. He states he was having 6 episodes of diarrhea, watery for the last 3-4 days duration. He states now he had to follow this morning which are more formed. C. diff has not been collected due to formed stool, stool culture sent. Shouldn't states he has had 40 pound weight loss over last 6 months duration, decreased appetite due to his non-Hodgkin's lymphoma and chemotherapy, states his taste buds have changed and nothing tastes good. Patient does have a history of GI bleed and underwent colonoscopy done 05/25/2021 by Neel Dickens with findings of mild diverticulosis. 05/02/2022. Patient seen and examined today as a follow-up for diarrhea. He states diarrhea has improved. He had 3 bowel movements yesterday which started to become formed. Unable to collect C. diff due to formed stool. Patient had no bowel movement today. He is sitting up eating his breakfast. States his appetite is somewhat improved. Denies any abdominal pain, nausea or vomiting. He's been afebrile. Stool culture is currently pending. Objective - Vital Signs Vital signs: Vital Signs Temp 97.8 F 05/02/22 05:00 Pulse 65 05/02/22 05:00 Resp 16 05/02/22 05:00 BP 93/53 05/02/22 05:00 Pulse Ox 98 05/02/22 05:00 FiO2 Intake & Output 1105/02/22 05/02/22 18:59 06:59 18:59 Weight 77.111 kg Other: Voiding Method Toilet Toilet # Voids 2 2 - Exam General appearance: The patient is alert, oriented, appears in no acute distress. HET: Head is normocephalic and atraumatic. Conjunctiva pink. Sclera anicteric. Neck: Supple without lymphadenopathy. Abdomen: Soft, nontender, nondistended with bowel sounds. No guarding or rigidity. Extremities: Normal skin color and turgor. No pedal edema Skin: No rashes, no jaundice Neurological: No focal deficits. Alert and oriented. - Labs CBC & Chem 7: 04/30/22 11:10 05/02/22 10:32 Labs: Microbiology - Last 24 Hours (Table) 05/01/22 09:11 Stool Culture - Preliminary Stool 04/30/22 11:10 Blood Culture - Preliminary Blood No Growth after 24 hours 04/30/22 11:12 Blood Culture - Preliminary Blood No Growth after 24 hours Assessment and Plan (1) Diarrhea Narrative/Plan: 71-year-old male who presented to the hospital with diarrhea 3-4 days duration with no associated nausea vomiting fever, abdominal pain or cramping. Likelihood is patient may have mild gastroenteritis likely viral in nature. Patient also may be somewhat medication related with history of non-Hodgkin's lymphoma who is status post chemotherapy. Patient is also can be having follow- up with his oncologist in [place]. Patient was noted to be dehydrated on admission with an elevated creatinine kinase, hypo-magnesium which has been rep laced with fluids and magnesium. Patient also with weight loss up to 40 pounds over the last 6 months duration due to poor appetite and poor taste from lymphoma and treatment. Diarrhea is improving, stool is forming, unable to collect C. diff due to formed stool. Stool culture is ordered and pending. Continue with advancement in diet. No plans on endoscopic evaluation at this time. Current Visit: Yes Status: Acute Priority: High Code(s): R19.7 - DIARRHEA, UNSPECIFIED SNOMED Code(s): 35628172 (2) Hypomagnesemia syndrome Current Visit: Yes Status: Acute Code(s): E83.42 - HYPOMAGNESEMIA SNOMED Code(s): 519713390 (3) Lymphoma Current Visit: Yes Status: Acute Priority: High Code(s): C85.90 - NON- HODGKIN LYMPHOMA, UNSPECIFIED, UNSPECIFIED SITE SNOMED Code(s): 391563904 Plan: 1. Continue symptomatic and supportive care 2. Diet as tolerated 3. Stool culture ordered, pending results 4. Ensure ordered 5. No plans on endoscopic evaluation Thank you for this consultation, diarrhea resolved. Patient is cleared from gastroenterology for discharge. We will sign off at this time. Dr. Howard Carrizales I agree with the dictator's note, documented as a scribe by Tiara Carty.
[2022-05-02] MEDS ORDERED: POTASSIUM CHLORIDE ER 20 MEQ TAB.ER PO STA (14:20)
[2022-05-02 14:21] VITALS: BP 119/72; PULSE 73; RESP 14; TEMP 98.6
[2022-05-02] MEDS: MAGNESIUM SULFATE-D5W PMX 1 GM in DEXTROSE/WATER 1 100ML.BAG IVPB SCH ×2 (14:51→16:10)
[2022-05-02 16:45] LABS: Basophils % (A) 1 %; Eosinophils % (A) 1 %; HCT 27.9 % (39.0-53.0); Lymphocytes # (A) 0.2 k/uL (1.0-4.8); Lymphocytes % (A) 9 %; MCHC 33.9 g/dL (31.0-37.0); MCV 100.4 fL (80.0-100.0); Mean Platelet Volume 8.3; Monocytes # (A) 0.1 k/uL (0-1.0); Monocytes % (A) 7 %; Neutrophils # (A) 1.4 k/uL (1.3-7.7); Neutrophils % (A) 81 %; Platelet Count 149 k/uL (150-450); RBC 2.77 m/uL (4.30-5.90); WBC 1.7 k/uL (3.8-10.6)
[2022-05-02 16:52] LABS: HGB 9.4 gm/dL (13.0-17.5)
== END 2022-05-02 18:08 | disposition home or self-care (01) | DRG 392 ==
LOC: EC 09:50 → 5NMEDONC 13:55
PROVIDERS: ADMIT Hospitalist; ATTEND Hospitalist
DX: A08.4 Viral intestinal infection, unspecified (principal); C81.90 Hodgkin lymphoma, unspecified, unspecified site; D63.0 Anemia in neoplastic disease; R62.7 Adult failure to thrive; I48.91 Unspecified atrial fibrillation; E86.0 Dehydration; E83.42 Hypomagnesemia; I25.10 Atherosclerotic heart disease of native coronary artery without angina pectoris; E78.5 Hyperlipidemia, unspecified; R53.81 Other malaise; R63.4 Abnormal weight loss; R63.0 Anorexia; K59.00 Constipation, unspecified; W18.11XA Fall from or off toilet without subsequent striking against object, initial encounter; Z28.310 Unvaccinated for COVID-19; Z68.22 Body mass index [BMI] 22.0-22.9, adult; Z79.899 Other long term (current) drug therapy; Z79.82 Long term (current) use of aspirin; Z87.891 Personal history of nicotine dependence; Z95.5 Presence of coronary angioplasty implant and graft; Z92.21 Personal history of antineoplastic chemotherapy; Z86.718 Personal history of other venous thrombosis and embolism; Z87.19 Personal history of other diseases of the digestive system; Z87.39 Personal history of other diseases of the musculoskeletal system and connective tissue
CPT/HCPCS: 36415; 71046; 74018; 80048; 80053; 81001; 82550; 83690; 83735; 84484; 85025; 87040; 87045; 87046; 87635; 93005; 96365; 96366; 96367; 96375; 99291

== ENCOUNTER → 2022-05-09 | Outpatient (CLI) | payer MEDICARE ==
--- NOTE | 2022-05-09 22:06 | MR ---
EXAMINATION TYPE: MR brain wo/w con DATE OF EXAM: 05/09/2022 COMPARISON: 07/07/2014 HISTORY: Lymphoma CONTRAST: Standard multiplanar, multisequence MRI departmental protocol images were obtained without contrast a nd with 7.5 mL intravenous Gadavist gadolinium contrast. There is cerebral cortical atrophy. There is no mass effect nor midline shift. No sign of intracrania l hemorrhage. Diffusion images show no evidence of an acute infarct. There is no evidence of orbital mass. Brainstem is intact. There is mild linear increased signal adjacent to the lateral ventricles o n the T2 and FLAIR images. No evidence of posterior fossa mass. Contrast images show normal enhancement of the venous sinuses. No pathologic enhancement. Corpus call osum is intact. No evidence of a sellar mass. IMPRESSION: Age-related white matter changes around the lateral ventricles. No evidence of metastatic disease. No cortical infarct. Cerebral atrophy. There is some progression of the atrophy compared to old exam.
== END | disposition home or self-care (01) ==
LOC: RADMRIMAIN 21:20
PROVIDERS: ATTEND Internal Medicine Hematology & Oncology
DX: C82.03 Follicular lymphoma grade I, intra-abdominal lymph nodes (principal); G31.1 Senile degeneration of brain, not elsewhere classified
CPT/HCPCS: 70553; A9585

== ENCOUNTER 2022-05-22 07:19 | Day surgery (SDC) | payer MEDICARE ==
[2022-05-21 09:14] VITALS: BMI 22.8
[~2022-05-22 07:19] MED LIST changes: -LIDOCAINE 1% (10MG/ML) FOR IV START INTRADERMA PRN
[2022-05-22 07:37] VITALS: RESP 18; TEMP 97.8
[2022-05-22] MEDS ORDERED: LACTATED RINGERS 1,000 ML IV ONE (07:42)
[2022-05-22] MEDS ORDERED: MIDAZOLAM 2 MG/2 ML VIAL ONE (07:48)
--- NOTE | 2022-05-22 08:06 | P.PCN ---
Date of Procedure: 05/22/22 Description of Procedure: Procedure: Lumbar Puncture . Preoperative Diagnoses: Altered mental status Postoperative Diagnosis: Same Anesthesia: IV sedation with Versed 1mg and local given by a nurse, moderate sedation required. Time of sedation supervision [id number] Condition: stable. Complications: none. Description of the procedure: Patient was consented in the preoperative area we discussed the risks benefits and alternatives to the procedure. Patient was brought into the procedure room and was given oxygen as well as the sedation noted above. The monitors were also placed. Patient was in stable condition. Return the patient to the left lateral decubitus position. The L3-L4 level was identified. 1% lidocaine with a 27-gauge needle was used to infiltrate the skin and subcutaneous tissue. At that point a 22-gauge spinal needle was used and at that point CSF was obtained. Opening pressure of 3 was obtained with very low flow, the needle was adjusted and turned full continue to be very low. At that point the samples were taken sequentially. Closing pressure was seen. The fluid was clear. The patient did very well. He was sent to the recovery room to be monitored. .
[2022-05-22] MEDS ORDERED: IV FLUID CONTINUATION 1,000 ML IV ONE (08:07)
[2022-05-22 08:36] VITALS: BP 104/63; PULSE 71
[2022-05-22 16:55] LABS: Glucose,CSF 43 mg/dL (40-70); Total Protein,CSF 53 mg/dL (12-60)
[2022-05-22 20:53] LABS: Appearance,CSF Clear; CSF Tube Number 1; Nucleated Cells, CSF 0 u/L (0-5); Red Blood Cell,CSF 1 u/L (0-10)
== END 2022-05-22 09:01 | disposition home or self-care (01) ==
LOC: ORPAIN 07:19
PROVIDERS: ATTEND Hospitalist
DX: R41.82 Altered mental status, unspecified (principal); E78.5 Hyperlipidemia, unspecified; Z79.82 Long term (current) use of aspirin; Z79.899 Other long term (current) drug therapy; Z90.89 Acquired absence of other organs
CPT/HCPCS: 84157; 82945; 89050; 62270; 99152; J2250

== ENCOUNTER 2022-06-10 05:05 | Inpatient (IN) | payer MEDICARE ==
[2022-06-10] MEDS ORDERED: SODIUM CHLORIDE 0.9% 1,000 ML IV STA (05:13)
--- NOTE | 2022-06-10 05:18 | ED ---
Weakness HPI - General Chief complaint: Weakness Stated complaint: Weakness Time Seen by Provider: 06/10/22 05:13 Source: patient, RN notes reviewed, old records reviewed Mode of arrival: EMS Limitations: physical limitation - History of Present Illness Initial comments: This is a 71-year-old male DF for evaluation. Patient unable to find history at this time is not speaking. Patient is not acting her mode rising appropriately at home for the patient's family. Patient is increasing weakness at home and is recently going to chemotherapy there concern that this may be a factor his chemotherapy. Again patient is not answering questions MD Complaint: generalized weakness, lack of energy, difficulty walking -: days(s) Location: generalized Severity: moderate Severity scale (1-10): 8 Quality: other Consistency: constant Improves with: none Worsens with: none Context: new medication (Recently chemotherapy) Associated Symptoms: denies other symptoms - Related Data Home Medications Medication Instructions Recorded Confirmed Multivitamins, Thera [Multivitamin 1 tab PO DAILY 07/15/19 05/21/22 (formulary)] Ezetimibe [Zetia] 10 mg PO DAILY 02/01/21 05/21/22 Rosuvastatin Calcium [Crestor] 40 mg PO HS 02/01/21 05/21/22 Turmeric Root Extract [Turmeric] 500 mg PO DAILY 04/30/22 05/21/22 diphenhydrAMINE HCL [Benadryl] 25 mg PO HS 04/30/22 05/21/22 L.acidoph,Paracasei, B.lactis 1 each PO DAILY 05/21/22 05/21/22 [Probiotic] Omeprazole 20 mg PO DAILY 05/21/22 05/21/22 Stool Softener (Unknown Name) 1 tab PO DAILY 05/21/22 05/21/22 Previous Rx's Medication Instructions Recorded Aspirin 81 mg PO DAILY #30 01/06/17 Magnesium Oxide 400 mg PO DAILY #30 tablet 05/02/22 Allergies Allergy/AdvReac Type Severity Reaction Status Date / Time No Known Allergies Allergy Verified 06/10/22 05:16 Review of Systems ROS Statement: Those systems with pertinent positive or pertinent negative responses have been documented in the HPI. ROS Other: All systems not noted in ROS Statement are negative. Past Medical History Past Medical History: Atrial Fibrillation, Coronary Artery Disease (CAD), Cancer, Chest Pain / Angina, Eye Disorder, Hyperlipidemia, Memory Impairment, Osteoarthritis (OA) Additional Past Medical History / Comment(s): Unsteady gait at times. Hx kidney stones. Ocular migraines. Hx posterior vitreous separation. Non-Hodgkin's Lymphoma-6 rounds of chemo-last round 12-08-21, immunotherapy treatment 05/11/22. Hx squamous cell skin cancer. Hx blood clot in left arm. Hx Bronchitis. Recent "confusion and memory problems, trouble finding right words, insomnia, pacing at night, anxiety due to cancer and the unknown". History of Any Multi-Drug Resistant Organisms: None Reported Past Surgical History: Heart Catheterization With Stent, Orthopedic Surgery Additional Past Surgical History / Comment(s): Right knee arthroscopy, bilateral great toe bone spurs removed, left achilles tendon repair, left testicle surgery, Heart Catheterization X2 with total of 4 cardiac stents, bone marrow aspiration. Past Anesthesia/Blood Transfusion Reactions: No Reported Reaction Additional Past Anesthesia/Blood Transfusion Reaction / Comment(s): No hx blood transfusion. Date of Last Stent Placement:: 05/29/2019 Past Psychological History: Anxiety Smoking Status: Former smoker Past Alcohol Use History: None Reported Past Drug Use History: None Reported - Past Family History Mother Family Medical History: Cancer Father Family Medical History: CVA/TIA, Myocardial Infarction ([place]) Additional Family Medical History / Comment(s): from a [place] at the age of 86. General Exam Limitations: physical limitation General appearance: alert, in no apparent distress Head exam: Present: atraumatic, normocephalic, normal inspection Eye exam: Present: normal appearance, PERRL, EOMI. Absent: scleral icterus, conjunctival injection, periorbital swelling ENT exam: Present: normal exam, mucous membranes moist Neck exam: Present: normal inspection. Absent: tenderness, meningismus, lymphadenopathy Respiratory exam: Present: normal lung sounds bilaterally. Absent: respiratory distress, wheezes, rales, rhonchi, stridor Cardiovascular Exam: Present: regular rate, normal rhythm, normal heart sounds. Absent: systolic murmur, diastolic murmur, rubs, gallop, clicks GI/Abdominal exam: Present: soft, normal bowel sounds. Absent: distended, tenderness, guarding, rebound, rigid Extremities exam: Present: normal inspection, full ROM, normal capillary refill. Absent: tenderness, pedal edema, joint swelling, calf tenderness Back exam: Present: normal inspection Neurological exam: Present: alert, oriented X3, CN II-XII intact Psychiatric exam: Present: normal affect, normal mood Skin exam: Present: warm, dry, intact, normal color. Absent: rash Course Vital Signs 06/10/22 05:11 Temperature 98.3 F Pulse Rate 80 Respiratory 14 Rate Blood Pressure 119/83 O2 Sat by Pulse 98 Oximetry - Reevaluation(s) Reevaluation #1: 06/10/22 06:06 Medical record is reviewed Reevaluation #2: 06/10/22 06:35 Patient has no improvement in symptoms here in the ER - Consultations Consultation #1: Spoken with admittion physicians, KIMBERLY to regarding admission there agreed EKG Findings - EKG Comments: EKG Findings:: EKG is sinus 87 QRS 83 QTC 414 Medical Decision Making - Medical Decision Making 71 male to the ED patient presents today for evaluation of severe weakness, patient will be admitted for supportive care - Lab Data Result diagrams: 06/10/22 05:58 Lab Results 06/10/22 06/10/22 Range/Units 05:58 05:58 PT 10.2 (9.0-12.0) sec INR 1.0 (<1.2) APTT 22.4 (22.0-30.0) sec Sodium 144 (137-145) mmol/L Potassium 3.7 (3.5-5.1) mmol/L Chloride 111 H (98-107) mmol/L Carbon Dioxide 21 L (22-30) mmol/L Anion Gap 12 mmol/L BUN 27 H (9-20) mg/dL Creatinine 0.83 (0.66-1.25) mg/dL Est GFR (CKD-EPI)AfAm >90 (>60 ml/min/1.73 sqM) Est GFR (CKD-EPI)NonAf 89 (>60 ml/min/1.73 sqM) Glucose 106 H (74-99) mg/dL Calcium 8.8 (8.4-10.2) mg/dL Phosphorus 2.7 (2.5-4.5) mg/dL Magnesium 1.6 (1.6-2.3) mg/dL Total Bilirubin 0.9 (0.2-1.3) mg/dL AST 53 (17-59) U/L ALT 51 H (4-49) U/L Alkaline Phosphatase 78 (38-126) U/L Total Protein 7.1 (6.3-8.2) g/dL Albumin 4.3 (3.5-5.0) g/dL - Radiology Data Radiology results: report reviewed (Chest x-ray Negative for acute disease), image reviewed Disposition Clinical Impression: Dehydration, Weakness, Debility, Chemotherapy adverse reaction Disposition: ADMITTED IP TO THIS [facility] Condition: Fair Is patient prescribed a controlled substance at d/c from ED?: No Referrals: Jerome Rivas MD [Primary Care Provider] - 1-2 days Time of Disposition: 06:40
[2022-06-10 06:18] LABS: Basophils % (A) 1 %; Eosinophils % (A) 1 %; HCT 36.8 % (39.0-53.0); HGB 12.9 gm/dL (13.0-17.5); Lymphocytes # (A) 0.4 k/uL (1.0-4.8); Lymphocytes % (A) 10 %; Macrocytosis Slight; Mean Platelet Volume 8.1; Monocytes # (A) 0.4 k/uL (0-1.0); Monocytes % (A) 10 %; Neutrophils # (A) 2.9 k/uL (1.3-7.7); Neutrophils % (A) 78 %; Platelet Count 223 k/uL (150-450); RBC 3.69 m/uL (4.30-5.90); WBC 3.7 k/uL (3.8-10.6)
[2022-06-10 06:28] LABS: Partial Thromboplastin Time 22.4 sec (22.0-30.0); Prothrombin Time 10.2 sec (9.0-12.0)
--- NOTE | 2022-06-10 06:29 | XR ---
EXAMINATION TYPE: XR chest 1V portable DATE OF EXAM: 06/10/2022 COMPARISON: 04/30/2022 HISTORY: Weakness TECHNIQUE: FINDINGS: Heart is normal. Lungs are clear of infiltrate. There is no heart failure. There is right c entral venous catheter with tip in the right atrium. There are chest leads. Bony thorax is intact. IMPRESSION: No active cardiopulmonary disease. No change.
[2022-06-10 06:30] LABS: ALT 51 U/L (4-49); AST 53 U/L (17-59); African American GFR (CKD) >90 (>60 ml/min/1.73 sqM); Albumin 4.3 g/dL (3.5-5.0); Alkaline Phosphatase 78 U/L (38-126); Anion Gap 12 mmol/L; Blood Urea Nitrogen 27 mg/dL (9-20); Calcium 8.8 mg/dL (8.4-10.2); Carbon Dioxide 21 mmol/L (22-30); Chloride 111 mmol/L (98-107); Glucose 106 mg/dL (74-99); Magnesium 1.6 mg/dL (1.6-2.3); Non-African American GFR(CKD) 89 (>60 ml/min/1.73 sqM); Phosphorus 2.7 mg/dL (2.5-4.5); Potassium 3.7 mmol/L (3.5-5.1); Sodium 144 mmol/L (137-145); Total Bilirubin 0.9 mg/dL (0.2-1.3); Total Protein 7.1 g/dL (6.3-8.2)
[2022-06-10] MEDS ORDERED: ACETAMINOPHEN TAB 325 MG TAB PO PRN (06:32)
[2022-06-10] MEDS ORDERED: NALOXONE 0.4 MG/ML 1 ML VIAL IV PRN (06:32)
[2022-06-10] MEDS ORDERED: MORPHINE SULFATE 4 MG/ML SYRINGE IV PRN (06:32)
[2022-06-10] MEDS: SODIUM CHLORIDE 0.9% 1,000 ML IV SCH ×3 (06:48→20:57)
[2022-06-10 06:51] LABS: MCV 99.9 fL (80.0-100.0)
[2022-06-10] MEDS: PANTOPRAZOLE 40 MG/10 ML VIAL IV SCH (10:37)
--- NOTE | 2022-06-10 16:30 | CT ---
EXAMINATION TYPE: CT brain wo con DATE OF EXAM: 06/10/2022 COMPARISON: None HISTORY: ams CT DLP: 2875.4 mGycm Automated exposure control for dose reduction was used. There is mild cerebral cortical atrophy. There is no mass effect or midline shift. No sign of intracr anial hemorrhage. The calvarium is intact. There is normal aeration of the mastoid sinuses. IMPRESSION: Negative CT scan of the brain. Mild cerebral atrophy.
--- NOTE | 2022-06-10 17:04 | P.CONS ---
History of Present Illness - Reason for Consult Consult date: 06/10/22 Non-Hodgkin's lymphoma, progressive weakness and dementia - History of Present Illness The patient is a 71-year-old white male, well known to our service. He is followed by Dr. Ramesh in the outpatient setting. 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 He was treated with bendamustine and Rituxan with good response, and then had 2 years of maintenance Rituxan. 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 Over the past few months, he has been noted to develop weakness, as well as gradual decrease in cognition and memory. He has had MRIs 2, showing atrophic changes with some mild progression, overall nonspecific. Lumbar puncture on 05/22/22 was negative. The patient is also being followed at the [facility] with the stem cell transplant team. 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 He was started back on treatment with Rituximab + Polituzumab, and is status post 2 cycles with the most recent given on 06/08/22. The patient's confirms that his symptoms have been slowly progressive. He especially has problems through the night, with agitation and hyperactivity with purposeless movements. She states that on the night of 06/08/22 he took Ativan as well as Marinol. The day after the patient was overall weaker and fell. He also appeared to be more lethargic and less responsive. His states that she was able to get him up with difficulty, but he could not ambulate on his own at all. He was therefore brought to the hospital and admitted for further management. CT of the brain again showed evidence of atrophic changes. Chest x-ray was negative for any active disease. Labs did not show any major abnormalities. She denied any fevers, chills, or symptoms suggestive of infection. The patient's oral intake has been significantly diminished and he has lost about 10 pounds loss in the last 2-3 weeks. He states that he really does not eat on his own, but will eat if someone else feeds him. No history of difficulty in swallowing. Consult was therefore placed a further evaluation and recommendations Review of Systems Constitutional: Reports anorexia, Reports poor appetite, Reports weakness, Reports weight loss Eyes: denies blurred vision, denies pain Ears: deny: decreased hearing, ear discharge, earache, tinnitus Ears, nose, mouth and throat: Denies headache, Denies sore throat Cardiovascular: Reports decreased exercise tolerance Respiratory: Denies cough Gastrointestinal: Reports constipation Genitourinary: Reports as per HPI Musculoskeletal: Reports muscle weakness Integumentary: Denies pruritus, Denies rash Neurological: Reports aphasia, Reports change in mentation, Reports change in speech, Reports lack of coordination, Reports memory loss, Reports weakness Psychiatric: Reports change in sleep habits, Reports confusion Endocrine: Reports fatigue, Reports weight change Hematologic/Lymphatic: Reports as per HPI Past Medical History Past Medical History: Atrial Fibrillation, Coronary Artery Disease (CAD), Cancer, Chest Pain / Angina, Eye Disorder, Hyperlipidemia, Memory Impairment, Osteoarthritis (OA) Additional Past Medical History / Comment(s): Unsteady gait at times. Hx kidney stones. Ocular migraines. Hx posterior vitreous separation. Non-Hodgkin's Lymphoma-6 rounds of chemo-last round 12-08-21, immunotherapy treatment 05/11/22. Hx squamous cell skin cancer. Hx blood clot in left arm. Hx Bronchitis. Recent "confusion and memory problems, trouble finding right words, insomnia, pacing at night, anxiety due to cancer and the unknown". History of Any Multi-Drug Resistant Organisms: None Reported Past Surgical History: Heart Catheterization With Stent, Orthopedic Surgery Additional Past Surgical History / Comment(s): Right knee arthroscopy, bilateral great toe bone spurs removed, left achilles tendon repair, left testicle surgery, Heart Catheterization X2 with total of 4 cardiac stents, bone marrow aspiration. Past Anesthesia/Blood Transfusion Reactions: No Reported Reaction Additional Past Anesthesia/Blood Transfusion Reaction / Comm: No hx blood transfusion. Date of Last Stent Placement:: 05/29/2019 Past Psychological History: Anxiety Additional Psychological History / Comment(s): . Smoking Status: Former smoker Past Alcohol Use History: None Reported Additional Past Alcohol Use History / Comment(s): Started smoking in 1966 and quit in 1977, 1 PPD. Past Drug Use History: None Reported - Past Family History Mother Family Medical History: Cancer Father Family Medical History: CVA/TIA, Myocardial Infarction ([place]) Additional Family Medical History / Comment(s): from a [place] at the age of 86. Medications and Allergies Home Medications Medication Instructions Recorded Confirmed Type No Known Home Medications 06/10/22 06/10/22 History Allergies Allergy/AdvReac Type Severity Reaction Status Date / Time No Known Allergies Allergy Verified 06/10/22 11:19 Physical Exam Vitals: Vital Signs Temp Pulse Pulse Resp BP BP Pulse Ox 06/10/22 15:00 98.9 F 91 16 126/74 97 06/10/22 11:49 98.1 F 88 16 127/75 98 06/10/22 11:20 98.2 F 98 18 99 06/10/22 05:11 98.3 F 80 14 119/83 98 Intake and Output 06/10/22 06/10/22 06/10/22 06:59 14:59 22:59 Intake Total 1040 Balance 1040 Intake: Intake, IV Titration 1040 Amount Sodium Chloride 0.9% 1, 1040 000 ml @ 130 mls/hr IV . [facility] Rx#:[id number] Other: Weight 77.111 kg - Constitutional General appearance: no acute distress - EENT Eyes: EOMI, PERRLA ENT: hearing grossly normal, normal oropharynx - Neck Neck: no lymphadenopathy Thyroid: bilateral: normal size - Respiratory Respiratory: bilateral: CTA - Cardiovascular Rhythm: regular Heart sounds: normal: S1, S2 - Gastrointestinal General gastrointestinal: normal bowel sounds, soft - Integumentary Integumentary: cyanotic, normal - Neurologic Patient is awake, only minimally verbal. Obeys simple commands intermittently only. Moving all extremities. Neurologic: CNII-XII intact - Musculoskeletal Musculoskeletal: generalized weakness, strength equal bilaterally - Psychiatric Mental status as described above Results CBC & Chem 7: 06/10/22 05:58 06/10/22 05:58 Labs: Abnormal Lab Results - Last 24 Hours (Table) 06/10/22 06/10/22 06/10/22 Range/Units 05:58 05:58 05:58 WBC 3.7 L (3.8-10.6) k/uL RBC 3.69 L (4.30-5.90) m/uL Hgb 12.9 L (13.0-17.5) gm/dL Hct 36.8 L (39.0-53.0) % Lymphocytes # 0.4 L (1.0-4.8) k/uL Chloride 111 H (98-107) mmol/L Carbon Dioxide 21 L (22-30) mmol/L BUN 27 H (9-20) mg/dL Glucose 106 H (74-99) mg/dL Plasma Lactic Acid Jimmie 4.1 H* (0.7-2.0) mmol/L ALT 51 H (4-49) U/L Comments: EKG imaging reviewed Chest x-ray: report reviewed CT Scan - head: report reviewed Assessment and Plan (1) Weakness Narrative/Plan: The patient developed his current symptoms before starting treatment, and these have been progressive since. As noted these consist of decrease in memory, agitation, decreasing responsiveness and overall weakness with decreased appet ite. Progression has occurred since about 04/07. These are felt to be paraneoplastic. - His current presentation does not appear to represent anything specifically acute. There is no evidence of any infection. Some of the increased weakness could potentially be due to some dehydration as the patient has not been eating or drinking well. However the major component of the symptoms have been present before and have been progressing. - Check UA to rule out occult UTI. No evidence of infection otherwise - IV hydration to correct probable component of dehydration. - PTOT consult - If with supportive care, the patient does not improve to where his family can care for him at home, then placement will need to be considered Current Visit: Yes Status: Acute Code(s): R53.1 - WEAKNESS SNOMED Code(s): 14931500 (2) Lymphoma Narrative/Plan: Diagnostic and therapeutic circumstances as described above. The patient has been started on new regimen earlier this month, and has had 2 treatments so far. The plan is for him to go on to CAR - T cell treatment. However his underlying symptoms, which are felt to be paraneoplastic, or progressing. I did discuss with the patient's that paraneoplastic symptoms can progress, even if the underlying malignancy responds. We also discussed that if the patient has to be placed in rehab, that could cause issues with continuing treatment due to coverage problems. The patient's stated that she would she would need to consider continuation of treatment versus stopping anyway, the patient was not improving. - As noted above, follow up patient to see how he does with ongoing supportive care. Current Visit: No Status: Acute Priority: High Code(s): C85.90 - NON- HODGKIN LYMPHOMA, UNSPECIFIED, UNSPECIFIED SITE SNOMED Code(s): 030360241
--- NOTE | 2022-06-10 18:53 | P.HPIM ---
History of Present Illness H&P Date: 06/10/22 Chief Complaint: weakness of the lower extremities Mr. Edwards is a 71-year-old male with a past medical history ofatrial fibrillation, coronary artery disease, hyperlipidemia, non-Hodgkin's lymphomareceiving chemotherapy and T-cell therapy brought in by his for the complaint of multiple falls. Patient's is at the bedside as the patient could not provide any history. She mentions that patient completed his chemo session on Saturday.Patient has been having issues with gait and his speech for the past 1 month that have been progressively getting worse. she mentioned that he has been trying to get out of the bed and has been falling, and she is not able to take care of him at home and so she brought him to the hospital. there are no complaints of fever chills or rigors. No complaints of chest pain or palpitations. She also mentioned that his slurring of speech has been gradually worsening. No acute changes.patient's also mentions that he has lost almost 12 pounds in 2 weeks since he had the first chemotherapy session.Patient's also mentions that post chemotherapy session the patient was discharged on Ativan and Marinol that she has been giving and thinks that after giving him a couple of doses of these medications his symptoms worsened. In the ED, patient's vitals have been found to be temperature 98.3, heart rate 80, respiratory rate 14, blood pressure [birth year]/1982 saturating at 98% on room air. on reviewing his labs white count of 3.7, hemoglobin 12.9, platelets 223. Sodium 144, patient's troponins and chloride 111 bicarb 21. BUN is 27 and creatinine of 0.83. Lactic of 4.1 and repeat is 1.2. he had a chest x-ray done with no acute cardiopulmonary changes. Patient had an MRI of the brain on 05/09/2022 - with no metastasis Review of Systems REVIEW OF SYSTEMS: patient is not able to provide much history due to mentation issues so complete review of systems could not be done Past Medical History Past Medical History: Atrial Fibrillation, Coronary Artery Disease (CAD), Cancer, Chest Pain / Angina, Eye Disorder, Hyperlipidemia, Memory Impairment, Osteoarthritis (OA) Additional Past Medical History / Comment(s): Unsteady gait at times. Hx kidney stones. Ocular migraines. Hx posterior vitreous separation. Non-Hodgkin's Lymphoma-6 rounds of chemo-last round 12-08-21, immunotherapy treatment 05/11/22. Hx squamous cell skin cancer. Hx blood clot in left arm. Hx Bronchitis. Recent "confusion and memory problems, trouble finding right words, insomnia, pacing at night, anxiety due to cancer and the unknown". History of Any Multi-Drug Resistant Organisms: None Reported Past Surgical History: Heart Catheterization With Stent, Orthopedic Surgery Additional Past Surgical History / Comment(s): Right knee arthroscopy, bilateral great toe bone spurs removed, left achilles tendon repair, left testicle surgery, Heart Catheterization X2 with total of 4 cardiac stents, bone marrow aspiration. Past Anesthesia/Blood Transfusion Reactions: No Reported Reaction Additional Past Anesthesia/Blood Transfusion Reaction / Comment(s): No hx blood transfusion. Date of Last Stent Placement:: 05/29/2019 Past Psychological History: Anxiety Additional Psychological History / Comment(s): . Smoking Status: Former smoker Past Alcohol Use History: None Reported Additional Past Alcohol Use History / Comment(s): Started smoking in 1966 and quit in 1977, 1 PPD. Past Drug Use History: None Reported - Past Family History Mother Family Medical History: Cancer Father Family Medical History: CVA/TIA, Myocardial Infarction ([place]) Additional Family Medical History / Comment(s): from a [place] at the age of 86. Medications and Allergies Home Medications Medication Instructions Recorded Confirmed Type No Known Home Medications 06/10/22 06/10/22 History Allergies Allergy/AdvReac Type Severity Reaction Status Date / Time No Known Allergies Allergy Verified 06/10/22 11:19 Physical Exam Vitals: Vital Signs Temp Pulse Pulse Resp BP BP Pulse Ox 06/10/22 11:49 98.1 F 88 16 127/75 98 06/10/22 11:20 98.2 F 98 18 99 06/10/22 05:11 98.3 F 80 14 119/83 98 Intake and Output 06/10/22 06/10/22 06/10/22 06:59 14:59 22:59 Other: Weight 77.111 kg GENERAL EXAM GEN. APPEARANCE: alert, in no apparent distress HEAD EXAM: atraumatic, normocephalic EYE EXAM: no pallor or icterus. NECK EXAM: normal inspection. no tenderness, meningismus RESPIRATORY EXAM: normal lung sounds bilaterally. No respiratory distress, wheezes CARDIOVASCULAR EXAM: regular rate, normal rhythm, normal heart sounds. GI/ABDOMINAL EXAM: soft, normal bowel sounds EXTREMITIES EXAM: NO edema NEUROLOGICAL EXAM: awake and does not follow commands. He is oriented to his name only Results CBC & Chem 7: 06/10/22 05:58 06/10/22 05:58 Labs: Abnormal Lab Results - Last 24 Hours (Table) 06/10/22 06/10/22 06/10/22 Range/Units 05:58 05:58 05:58 WBC 3.7 L (3.8-10.6) k/uL RBC 3.69 L (4.30-5.90) m/uL Hgb 12.9 L (13.0-17.5) gm/dL Hct 36.8 L (39.0-53.0) % Lymphocytes # 0.4 L (1.0-4.8) k/uL Chloride 111 H (98-107) mmol/L Carbon Dioxide 21 L (22-30) mmol/L BUN 27 H (9-20) mg/dL Glucose 106 H (74-99) mg/dL Plasma Lactic Acid Jimmie 4.1 H* (0.7-2.0) mmol/L ALT 51 H (4-49) U/L Thrombosis Risk Factor Assmnt - Choose All That Apply Each Risk Factor Represents 2 Points: Age 61-74 years Each Risk Factor Represents 3 Points: History of DVT/PE Thrombosis Risk Factor Assessment Total Risk Factor Score: 5 Thrombosis Risk Factor Assessment Level: High Risk Assessment and Plan Assessment: ASSESSMENT Multiple falls Weight loss unintentional Non-Hodgkin's lymphoma Status post chemo and T-cell therapy Lymphopenia History of coronary artery disease status post stenting Cognitive impairment History of atrial fibrillation PLAN: patient has been having issues with balance that has been ongoing for the past 4-5 weeks and also he has been losing weight status post chemo sessions. Will order a CT of the head. We will also check for any underlying infections. Chest x-ray has been negative, will check urinalysis. Have the patient on fall precautions. Will consult oncology. We'll consult physical therapy. The treatment plan was discussed in detail with the patient's at bedside.
[2022-06-11] MEDS: SODIUM CHLORIDE 0.9% 1,000 ML IV SCH ×3 (04:58→23:01)
[2022-06-11 08:54] LABS: Appearance,Urine Clear (Clear); Bilirubin,Urine Negative (Negative); Blood,Urine Negative (Negative); Color,Urine Yellow; Glucose,Urine (UA) Negative (Negative); Ketones,Urine Negative (Negative); Leukocyte Esterase,Urine Negative (Negative); Nitrite,Urine Negative (Negative); Protein,Urine Negative (Negative); Specific Gravity,Urine 1.019 (1.001-1.035); Urobilinogen,Urine <2.0 mg/dL (<2.0)
[2022-06-11 09:22] LABS: Basophils # (A) 0.02 X 10*3/uL (0.00-0.10); Basophils % (A) 0.9 %; Eosinophils # (A) 0.01 X 10*3/uL (0.04-0.35); Eosinophils % (A) 0.4 %; HCT 35.4 % (39.6-50.0); HGB 11.7 g/dL (13.0-17.0); Immature Grans, Automated 0.4 %; Lymphocytes # (A) 0.11 X 10*3/uL (0.90-5.00); Lymphocytes % (A) 4.9 %; MCH 33.9 pg (27.0-32.0); MCHC 33.1 g/dL (32.0-37.0); MCV 102.6 fL (80.0-97.0); Mean Platelet Volume 10.1 fL (9.5-12.2); Monocytes % (A) 22.4 %; NRBC Per 100 WBC 0 /100 WBCS (0.0-0.0); Neutrophils # (A) 1.58 X 10*3/uL (1.80-7.70); Platelet Count 193 X 10*3/uL (140-440); RBC 3.45 X 10*6/uL (4.40-5.60); RDW 14.4 % (11.5-14.5); WBC 2.23 X 10*3/uL (4.50-10.00)
[2022-06-11 09:28] LABS: African American GFR (CKD) 104.2 (60.0-200.0); Albumin 4.1 g/dL (3.8-4.9); Albumin/Globulin Ratio 2.16 (1.60-3.17); Anion Gap 11.1 mmol/L (10.00-18.00); BUN/Creat Ratio 24.5 Ratio (12.00-20.00); Blood Urea Nitrogen 19.6 mg/dL (9.0-27.0); Calcium 8.8 mg/dL (8.7-10.3); Carbon Dioxide 21.9 mmol/L (20.0-27.5); Globulin 1.9 g/dL (1.6-3.3); Magnesium 1.5 mg/dL (1.5-2.4); Non-African American GFR(CKD) 89.9 (60.0-200.0); Phosphorus 3.1 mg/dL (2.4-5.1); Potassium 3.7 mmol/L (3.5-5.5); Total Bilirubin 0.8 mg/dL (0.30-1.20)
[2022-06-11] MEDS: ENOXAPARIN 40 MG/0.4 ML SYRINGE SQ SCH (09:47)
[2022-06-11] MEDS: PANTOPRAZOLE 40 MG/10 ML VIAL IV SCH (10:17)
[2022-06-11 12:32] VITALS: BMI 23.0
[2022-06-11 16:55] LABS: Glucose,Whole Blood 86 mg/dL (70-110)
[2022-06-11 23:03] LABS: Glucose,Whole Blood 82 mg/dL (70-110)
--- NOTE | 2022-06-12 00:03 | P.PN ---
Subjective Progress Note Date: 06/11/22 Principal diagnosis: Multiple falls and Weight loss Mr. Edwards is a 71-year-old male with a past medical history ofatrial fibrillation, coronary artery disease, hyperlipidemia, non-Hodgkin's lymphomareceiving chemotherapy and T-cell therapy brought in by his for the complaint of multiple falls and weight loss. Today the patient is lying in bed comfortably appears to be no acute distress. Patient is confused and does not provide any history. As per discussion with his who is at the bedside patient has significant decreased p.o. intake in the past 2 to 3 days. She has been having issues with anxiety and hyperactivity with purposeless movements mostly during evening times. On reviewing the patient's vital signs temperature of 98.2 heart rate 88 respiratory rate 18 blood pressure 134/63 saturating at 99 on room air. His labs from this morning showed white count of 2.2 hemoglobin 9.7 platelets of 193 sodium 144 potassium 3.7 chloride 112 bicarb 21 BUN 99 creatinine of 0.8. Urine analysis is negative. Objective - Vital Signs Vital signs: Vital Signs Temp 97.7 F 06/11/22 15:00 Pulse 89 06/11/22 20:00 Resp 16 06/11/22 20:00 BP 130/69 06/11/22 15:00 Pulse Ox 98 06/11/22 15:00 FiO2 Intake & Output 06/11/22 06/11/22 06/12/22 06:59 18:59 06:59 Weight 77.111 kg Other: Voiding Method Incontinent Incontinent # Voids 5 1 1 # Bowel Movements 0 0 - Exam PHYSICAL EXAM GEN. APPEARANCE: alert, in no apparent distress EYE EXAM: no pallor or icterus. RESPIRATORY EXAM: normal lung sounds bilaterally. No respiratory distress, wheezes CARDIOVASCULAR EXAM: regular rate, normal rhythm, normal heart sounds. GI/ABDOMINAL EXAM: soft, normal bowel sounds EXTREMITIES EXAM: NO edema NEUROLOGICAL EXAM: awake and does not follow commands. He is oriented to his name only - Labs CBC & Chem 7: 06/11/22 04:09 06/11/22 04:09 Labs: Abnormal Lab Results - Last 24 Hours (Table) 06/11/22 06/11/22 Range/Units 04:09 04:09 WBC 2.23 L (4.50-10.00) X 10*3/uL RBC 3.45 L (4.40-5.60) X 10*6/uL Hgb 11.7 L (13.0-17.0) g/dL Hct 35.4 L (39.6-50.0) % MCV 102.6 H (80.0-97.0) fL MCH 33.9 H (27.0-32.0) pg Neutrophils # 1.58 L (1.80-7.70) X 10*3/uL Lymphocytes # 0.11 L (0.90-5.00) X 10*3/uL Eosinophils # 0.01 L (0.04-0.35) X 10*3/uL Chloride 112 H (96-109) mmol/L BUN/Creatinine Ratio 24.50 H (12.00-20.00) Ratio AST 36 H (14-35) U/L Total Protein 6.0 L (6.2-8.2) g/dL Assessment and Plan Assessment: ASSESSMENT Multiple falls Weight loss unintentional Non-Hodgkin's lymphoma Status post chemo and T-cell therapy Lymphopenia History of coronary artery disease status post stenting Cognitive impairment History of atrial fibrillation PLAN: CT of the head is negative Chest x-ray and urine analysis clear Most likely his symptoms are felt to be secondary to paraneoplastic in nature PT OT on board for possible placement as the cannot provide 24 x 7 care Oncology following the patient-treated to mild future course of therapy Discussed about CODE STATUS with -he is a DNR Overall prognosis is poor Further recommendations depending on the progress of the patient
[2022-06-12 06:29] LABS: Glucose,Whole Blood 75 mg/dL (70-110)
[2022-06-12] MEDS: SODIUM CHLORIDE 0.9% 1,000 ML IV SCH ×3 (06:37→20:32)
[2022-06-12] MEDS: PANTOPRAZOLE 40 MG/10 ML VIAL IV SCH (10:22)
[2022-06-12] MEDS: ENOXAPARIN 40 MG/0.4 ML SYRINGE SQ SCH (10:22)
[2022-06-12 12:13] LABS: Glucose,Whole Blood 74 mg/dL (70-110)
[2022-06-12 17:26] LABS: Glucose,Whole Blood 105 mg/dL (70-110)
--- NOTE | 2022-06-12 17:35 | P.PN ---
Subjective Progress Note Date: 06/12/22 Principal diagnosis: Lymphoma, weakness, confusion No family at bedside. Pt is alert and responding to verbal stimuli but is not following commands, agitated. Objective - Vital Signs Vital signs: Vital Signs Temp 97.2 F L 06/12/22 07:00 Pulse 95 06/12/22 07:00 Resp 22 06/12/22 07:00 BP 151/87 06/12/22 07:00 Pulse Ox 93 L 06/12/22 07:00 FiO2 Intake & Output 06/11/22 06/12/22 06/12/22 18:59 06:59 18:59 Weight 77.111 kg Other: Voiding Method Incontinent Diaper # Voids 1 2 # Bowel Movements 0 - Constitutional General appearance: Present: average body habitus, no acute distress - EENT Eyes: Present: anicteric sclerae, EOMI - Respiratory Details: breathing is even and unlabored - Cardiovascular Details: skin warm and dry - Integumentary Integumentary Comment(s): macular/papular erythematous rash with scabbing on chest and abdomen - Musculoskeletal Musculoskeletal: Present: strength equal bilaterally - Labs CBC & Chem 7: 06/11/22 04:09 06/11/22 04:09 - Imaging and Cardiology Chest x-ray: report reviewed CT Scan - head: report reviewed Assessment and Plan (1) Weakness Current Visit: Yes Status: Acute Priority: High Code(s): R53.1 - WEAKNESS SNOMED Code(s): 75406769 (2) Failure to thrive in adult Current Visit: Yes Status: Acute Priority: High Code(s): R62.7 - ADULT FAILURE TO THRIVE SNOMED Code(s): 401357236 (3) Lymphoma Current Visit: Yes Status: Acute Priority: High Code(s): C85.90 - NON- HODGKIN LYMPHOMA, UNSPECIFIED, UNSPECIFIED SITE SNOMED Code(s): 478834056 Plan: The patient developed his current symptoms before starting treatment, and these have been progressive since, felt to be paraneoplastic. There is no evidence of any infection. He is being hydrated but, no real im provements. PT/OT consult was placed, pending recommendations. If with supportive care, the patient does not improve to where his family can care for him at home, then placement will need to be considered as previously mentioned by Dr. Ng. He did discuss this with pt a few days ago. They discussed paraneoplastic sx, how they can be progressive, and worsen, and that if the patient has to be placed in rehab, that could cause issues with continuing treatment due to coverage problems. The patient's stated that she would to consider continuation of treatment versus stopping treatment. Attending contacted us today and pt is telling them that she does not know what is going on and what the plan of care is. Spoke with Nursing to sched family meeting at 930 AM to clarify plan of care-as stated above-and review the decisions that family may need to make. ID consult placed for new rash, r/o disseminated shingles attests: I have seen and examined pt, performed H&P, developed impression and plan of care. Discussed with dictator, agree with documentation, dictated as a scribe.
[2022-06-12 20:56] LABS: Glucose,Whole Blood 105 mg/dL (70-110)
--- NOTE | 2022-06-12 21:01 | P.CONS ---
History of Present Illness - Reason for Consult Consult date: 06/12/22 Disseminated shingles Requesting physician: Arcelia Guaman - Chief Complaint weakness x few days - History of Present Illness Patient is a 71-year-old male with a past medical history significant for atrial fibrillation coronary disease hyperlipidemia non-Hodgkin lymphoma and currently has been on chemotherapy with the last chemo on Saturday, patient has been brought into the ER for evaluation of increasing weakness and having problem with the gait and speech no clear history of any fever or any chills and no fever has been recorded during this hospital stay patient did have a mild leukopenia did have elevated lactic acid liver enzymes are normal except ALT mild elevated 51 creatinine was normal urine has been negative patient did have a chest x-ray no active cardiopulmonary disease patient noticed to have a rash mostly to the upper trunk area with concern for possible disseminated herpes infectious disease was consulted for further management patient who provided most of the history mention she noticed the rash before he got his chemotherapy on Saturday and apparently the rash is slightly got worse patient not a very good historian to tell me of the has significant itching or any burning associated with this rash however currently do not have any vesicles or any skin breakdown and no rash was noticed on the lower trunk palm and sole Review of Systems Positive point has been mentioned in the HPI rest of the systems are negative Past Medical History Past Medical History: Atrial Fibrillation, Coronary Artery Disease (CAD), Cancer, Chest Pain / Angina, Eye Disorder, Hyperlipidemia, Memory Impairment, Osteoarthritis (OA) Additional Past Medical History / Comment(s): Unsteady gait at times. Hx kidney stones. Ocular migraines. Hx posterior vitreous separation. Non-Hodgkin's Lymphoma-6 rounds of chemo-last round 12-08-21, immunotherapy treatment 05/11/22. Hx squamous cell skin cancer. Hx blood clot in left arm. Hx Bronchitis. Recent "confusion and memory problems, trouble finding right words, insomnia, pacing at night, anxiety due to cancer and the unknown". History of Any Multi-Drug Resistant Organisms: None Reported Past Surgical History: Heart Catheterization With Stent, Orthopedic Surgery Additional Past Surgical History / Comment(s): Right knee arthroscopy, bilateral great toe bone spurs removed, left achilles tendon repair, left testicle surgery, Heart Catheterization X2 with total of 4 cardiac stents, bone marrow aspiration. Past Anesthesia/Blood Transfusion Reactions: No Reported Reaction Additional Past Anesthesia/Blood Transfusion Reaction / Comm: No hx blood transfusion. Date of Last Stent Placement:: 05/29/2019 Past Psychological History: Anxiety Additional Psychological History / Comment(s): . Smoking Status: Former smoker Past Alcohol Use History: None Reported Additional Past Alcohol Use History / Comment(s): Started smoking in 1966 and quit in 1977, 1 PPD. Past Drug Use History: None Reported - Past Family History Mother Family Medical History: Cancer Father Family Medical History: CVA/TIA, Myocardial Infarction ([place]) Additional Family Medical History / Comment(s): from a [place] at the age of 86. Medications and Allergies Home Medications Medication Instructions Recorded Confirmed Type LORazepam [Ativan] 1 mg PO Q8H PRN 06/13/22 06/13/22 History Mirtazapine [Remeron] 15 mg PO HS 30 Days #30 tab 06/15/22 Rx Allergies Allergy/AdvReac Type Severity Reaction Status Date / Time No Known Allergies Allergy Verified 06/10/22 11:19 Physical Exam Vitals: Vital Signs Temp Pulse Pulse Resp BP Pulse Ox 06/12/22 07:00 97.2 F L 95 22 151/87 93 L 06/12/22 01:38 97.6 F 84 19 156/81 98 06/11/22 21:08 97.6 F 84 19 156/81 98 06/11/22 20:00 89 16 Intake and Output 06/12/22 06/12/22 06/12/22 06:59 14:59 22:59 Other: Voiding Method Diaper # Voids 2 GENERAL DESCRIPTION: Elderly male lying in bed, no distress. No tachypnea or accessory muscle of respiration use. HEENT: Shows Pallor , no scleral icterus. Oral mucous membrane is dry. No pharyngeal erythema or thrush NECK: Trachea central, no thyromegaly. LUNGS: Unlabored breathing. Clear to auscultation anteriorly. No wheeze or crackle. HEART: S1, S2, regular rate and rhythm. No loud murmur ABDOMEN: Soft, no tenderness , guarding or rigidity, no organomegaly EXTREMITIES: No edema of feet. SKIN: No rash, no masses palpable. NEUROLOGICAL: The patient is awake, alert, oriented x3, mood and affect normal. Results CBC & Chem 7: 06/13/22 06:10 06/13/22 06:10 Assessment and Plan (1) Rash Status: Acute Code(s): R21 - RASH AND OTHER NONSPECIFIC SKIN ERUPTION SNOMED Code(s): 333663941 Plan: 1patient with mostly macular papular rash involving the back and upper trunk area no significant involvement of the lower abdominal or the lower extremity or upper extremity the question of possible contact dermatitis versus drug rash clinically not behaving as disseminated herpes as no vesicles were noticed 2-we will consider a low-dose steroids and will apply calamine lotion to the rash and see response 3-we will check inflammatory markers and serology at the bedside multiple questions concerns were answered in layman term We will follow on clinical condition and cultures to further adjust medication if needed Thank you for this consultation we will follow the patient along with you Time with Patient: Greater than 30
[2022-06-12] MEDS: CALAMINE/ZINC OXIDE LOTION 177 ML BTL TOPICAL SCH (21:56)
[2022-06-12] MEDS: methylPREDNISolone SOD SUCCI 40 MG/ML 1 ML VIAL IV SCH (21:56)
--- NOTE | 2022-06-13 04:07 | P.PN ---
Subjective Progress Note Date: 06/12/22 Multiple falls and Weight loss Mr. Edwards is a 71-year-old male with a past medical history ofatrial fib rillation, coronary artery disease, hyperlipidemia, non-Hodgkin's lymphomareceiving chemotherapy and T-cell therapy brought in by his for the complaint of multiple falls and weight loss. Today the patient is lying in bed comfortably appears to be no acute distress. Patient is confused and does not provide any history. As per discussion with his who is at the bedside patient has significant decreased p.o. intake in the past 2 to 3 days. She has been having issues with anxiety and hyperactivity with purposeless movements mostly during evening times. On reviewing the patient's vital signs temperature of 98.2 heart rate 88 respiratory rate 18 blood pressure 134/63 saturating at 99 on room air. His labs from this morning showed white count of 2.2 hemoglobin 9.7 platelets of 193 sodium 144 potassium 3.7 chloride 112 bicarb 21 BUN 99 creatinine of 0.8. Urine analysis is negat sweetie. 06/12/2022 Patient is seen and evaluated in follow-up this morning continues to be significantly weak and confused. At the time of my exam there is no family available and per nursing staff patients has multiple questions regarding treatment plan and overall plan of care. Patient recently had chemotherapy and is concerned and would like to continue treatment but is unsure of overall prognosis and treatment plan moving forward. Patient with significant weakness will have PT/OT therapy evaluate the patient and will most likely require ECF. Family to decide further about ECF as this will cause a delay in oncological treatments while in rehab. Oncology following and to discuss again about plan of care in the a.m. Infectious disease was consulted as well as patient continues to have this generalized rash with itching noted. Patient is currently afebrile and reports of chest pain or shortness of breath noted. Review of systems, unable to obtain as patient is confused Active Medications Acetaminophen (Acetaminophen Tab 325 Mg Tab) 650 mg PO Q6HR PRN PRN Reason: Mild Pain or Fever > 100.5 Calamine (Calamine/Zinc Oxide Lotion 177 Ml Btl) 1 applic TOPICAL BID BALTA; Protocol Last Admin: 06/12/22 21:56 Dose: 1 applic Enoxaparin Sodium (Enoxaparin 40 Mg/0.4 Ml Syringe) 40 mg SQ DAILY BALTA Last Admin: 06/12/22 10:22 Dose: 40 mg Sodium Chloride (Saline 0.9%) 1,000 mls @ 130 mls/hr IV .Q7H42M [facility] Last Admin: 06/12/22 20:32 Dose: 130 mls/hr Methylprednisolone Sodium Succinate (Methylprednisolone Sod Succi 40 Mg/Ml 1 Ml Vial) 40 mg IV Q12HR [facility] Stop: 06/13/22 23:59 Last Admin: 06/12/22 21:56 Dose: 40 mg Morphine Sulfate (Morphine Sulfate 4 Mg/Ml Syringe) 4 mg IV Q4HR PRN PRN Reason: Severe Pain (Scale 7 to 10) Naloxone HCl (Naloxone 0.4 Mg/Ml 1 Ml Vial) 0.2 mg IV Q2M PRN PRN Reason: Opioid Reversal Pantoprazole Sodium (Pantoprazole 40 Mg/10 Ml Vial) 40 mg IV DAILY [facility] Last Admin: 06/12/22 10:22 Dose: 40 mg Physical exam: GEN. APPEARANCE: alert, in no apparent distress EYE EXAM: no pallor or icterus. RESPIRATORY EXAM: normal lung sounds bilaterally. No respiratory distress, wheezes CARDIOVASCULAR EXAM: regular rate, normal rhythm, normal heart sounds. GI/ABDOMINAL EXAM: soft, normal bowel sounds EXTREMITIES EXAM: NO edema NEUROLOGICAL EXAM: awake and does not follow commands. He is oriented to his name only Skin: Maculopapular rash of upper extremities bilaterally and back Assessment: Multiple falls Weight loss unintentional Non-Hodgkin's lymphoma Status post chemo and T-cell therapy Lymphopenia History of coronary artery disease status post stenting Cognitive impairment History of atrial fibrillation No code PLAN: Recommend continue current medications and management with oncology and now ID following Patient with a generalized maculopapular rash that was reported as prior to most recent chemo treatment and anxiety following an inflammatory markers ordered Symptoms felt to be secondary to paraneoplastic PT/OT therapy evaluation for possible ECF Oncology to initiate a discussion with her spouse about overall treatment plan and plan moving forward for possible ECF for rehab This patient is requiring rehab going EC, patient and family will need to be agreeable to withhold all oncological care during rehab while inpatient and will need follow-up outpatient with oncology once discharged from ECF. Due to multiple complex medical issues, Overall prognosis is poor Further recommendations depending on the progress of the patient The impression and plan of care has been dictated by Le Payne, Nurse Practitioner as directed. Dr. Joe MD I have performed a history and examination and MDM of this patient, discussed the same with the dictator, and agree with the dictator's assessment and plan as written ,documented as a scribe. Based on total visit time, I have performed more than 50% of the visit. Objective - Vital Signs Vital signs: Vital Signs Temp 97.2 F L 06/12/22 07:00 Pulse 95 06/12/22 07:00 Resp 22 06/12/22 07:00 BP 151/87 06/12/22 07:00 Pulse Ox 93 L 06/12/22 07:00 FiO2 Intake & Output 06/11/22 06/12/22 06/12/22 18:59 06:59 18:59 Weight 77.111 kg Other: Voiding Method Incontinent Diaper # Voids 1 2 # Bowel Movements 0 - Labs CBC & Chem 7: 06/11/22 04:09 06/11/22 04:09
[2022-06-13] MEDS: SODIUM CHLORIDE 0.9% 1,000 ML IV SCH ×3 (04:41→20:48)
[2022-06-13 07:41] LABS: Glucose,Whole Blood 117 mg/dL (70-110)
[2022-06-13] MEDS: CALAMINE/ZINC OXIDE LOTION 177 ML BTL TOPICAL SCH ×2 (09:03→20:47)
[2022-06-13] MEDS: methylPREDNISolone SOD SUCCI 40 MG/ML 1 ML VIAL IV SCH ×2 (09:03→20:47)
[2022-06-13] MEDS: PANTOPRAZOLE 40 MG/10 ML VIAL IV SCH (09:03)
[2022-06-13] MEDS: ENOXAPARIN 40 MG/0.4 ML SYRINGE SQ SCH (09:03)
[2022-06-13 09:56] LABS: African American GFR (CKD) 105.4 (60.0-200.0); Albumin 3.9 g/dL (3.8-4.9); Albumin/Globulin Ratio 1.79 (1.60-3.17); Anion Gap 13.9 mmol/L (10.00-18.00); BUN/Creat Ratio 23.81 Ratio (12.00-20.00); Blood Urea Nitrogen 18.5 mg/dL (9.0-27.0); Calcium 9.1 mg/dL (8.7-10.3); Carbon Dioxide 19.4 mmol/L (20.0-27.5); Globulin 2.2 g/dL (1.6-3.3); Potassium 4.4 mmol/L (3.5-5.5); Total Protein 6.1 g/dL (6.2-8.2)
[2022-06-13 11:11] LABS: HSV I IgG Interp NEGATIVE (NEGATIVE); HSV II IgG Interp NEGATIVE (NEGATIVE)
[2022-06-13 12:00] LABS: Glucose,Whole Blood 121 mg/dL (70-110)
[2022-06-13 12:10] LABS: Basophils # (A) 0 X 10*3/uL (0.00-0.10); Basophils % (A) 0 %; Crenated RBC 2+; Elliptocytes 2+; Eosinophils # (A) 0 X 10*3/uL (0.04-0.35); Eosinophils % (A) 0 %; HGB 11.4 g/dL (13.0-17.0); Immature Grans, Automated 0.7 %; Lymphocytes # (A) 0.13 X 10*3/uL (0.90-5.00); Lymphocytes % (A) 9.2 %; MCH 34.2 pg (27.0-32.0); MCHC 35.6 g/dL (32.0-37.0); MCV 96.1 fL (80.0-97.0); Mean Platelet Volume 9.6 fL (9.5-12.2); Monocytes # (A) 0.06 X 10*3/uL (0.20-1.00); Monocytes % (A) 4.2 %; NRBC Per 100 WBC 0 /100 WBCS (0.0-0.0); Neutrophils # (A) 1.22 X 10*3/uL (1.80-7.70); Neutrophils % (A) 85.9 %; Platelet Count 192 X 10*3/uL (140-440); RBC 3.33 X 10*6/uL (4.40-5.60); WBC 1.42 X 10*3/uL (4.50-10.00)
--- NOTE | 2022-06-13 13:28 | P.EN ---
Patient will require a hospital bed at time of discharge for pain management secondary to lymphoma as a normal bed is not feasible to accommodate for positioning to alleviate pain and/or pressure. Head of the bed to be elevated more than 30 most of the time Patient will require a commode as patient is room confined due to weakness with failure to thrive and non-Hodgkin's lymphoma Patient will require a walker on discharge to be able to perform ADLs as patient has significant weakness and difficulty ambulating
--- NOTE | 2022-06-13 15:44 | P.PN ---
Subjective Progress Note Date: 06/13/22 Principal diagnosis: Rash and a question of disseminated herpes Patient is a 71-year-old male with a past medical history significant for atrial fibrillation coronary disease hyperlipidemia non-Hodgkin lymphoma and currently has been on chemotherapy with the last chemo on Saturday, patient has been brought into the ER for evaluation of increasing weakness and having pro blem with the gait and speech no clear history of any fever or any chills, patient also noticed to have a rash to the back and upper chest area with significant itching. On today's evaluation that is 06/13/2022 the patient is afebrile, apparently the patient has slightly decreased intensity and is now completing of as much itching as yesterday, no sores in the mouth no nausea no vomiting and no di arrhea Objective - Vital Signs Vital signs: Vital Signs Temp 97.4 F L 06/13/22 07:00 Pulse 78 06/13/22 07:00 Resp 22 06/13/22 07:00 BP 144/84 06/13/22 07:00 Pulse Ox 98 06/13/22 07:36 FiO2 Intake & Output 06/12/22 06/13/22 06/13/22 18:59 06:59 18:59 Intake Total 474 Balance 474 Weight 77.111 kg Intake: Oral 474 Other: Voiding Method Diaper Diaper Diaper External Catheter # Voids 5 2 - Exam GENERAL DESCRIPTION: An elderly male lying in bed in no distress RESPIRATORY SYSTEM: Unlabored breathing , decreased breath sounds at bases HEART: S1 S2 regular rate and rhythm , Rash to the upper chest area has decreased in intensity ABDOMEN: Soft , no tenderness EXTREMITIES: No edema feet - Labs CBC & Chem 7: 06/13/22 06:10 06/13/22 06:10 Labs: Abnormal Lab Results - Last 24 Hours (Table) 06/13/22 06/13/22 06/13/22 Range/Units 06:10 06:10 06:10 WBC 1.42 L* (4.50-10.00) X 10*3/uL RBC 3.33 L (4.40-5.60) X 10*6/uL Hgb 11.4 L (13.0-17.0) g/dL Hct 32.0 L (39.6-50.0) % MCH 34.2 H (27.0-32.0) pg Neutrophils # 1.22 L (1.80-7.70) X 10*3/uL Lymphocytes # 0.13 L (0.90-5.00) X 10*3/uL Monocytes # 0.06 L (0.20-1.00) X 10*3/uL Eosinophils # 0 L (0.04-0.35) X 10*3/uL Chloride 110 H (96-109) mmol/L Carbon Dioxide 19.4 L (20.0-27.5) mmol/L BUN/Creatinine Ratio 23.81 H (12.00-20.00) Ratio Glucose 130 H (70-110) mg/dL POC Glucose (mg/dL) (70-110) mg/dL AST 36 H (14-35) U/L C-Reactive Protein 2.00 H (0.00-0.80) mg/dL Total Protein 6.1 L (6.2-8.2) g/dL VZV IgG Interpret POSITIVE A (NEGATIVE) 06/13/22 06/13/22 Range/Units 07:31 11:57 WBC (4.50-10.00) X 10*3/uL RBC (4.40-5.60) X 10*6/uL Hgb (13.0-17.0) g/dL Hct (39.6-50.0) % MCH (27.0-32.0) pg Neutrophils # (1.80-7.70) X 10*3/uL Lymphocytes # (0.90-5.00) X 10*3/uL Monocytes # (0.20-1.00) X 10*3/uL Eosinophils # (0.04-0.35) X 10*3/uL Chloride (96-109) mmol/L Carbon Dioxide (20.0-27.5) mmol/L BUN/Creatinine Ratio (12.00-20.00) Ratio Glucose (70-110) mg/dL POC Glucose (mg/dL) 117 H 121 H (70-110) mg/dL AST (14-35) U/L C-Reactive Protein (0.00-0.80) mg/dL Total Protein (6.2-8.2) g/dL VZV IgG Interpret (NEGATIVE) Assessment and Plan (1) Rash Current Visit: Yes Status: Acute Code(s): R21 - RASH AND OTHER NONSPECIFIC SKIN ERUPTION SNOMED Code(s): 483222411 Plan: 1patient with mostly macular papular rash involving the back and upper trunk area no significant involvement of the lower abdominal or the lower extremity or upper extremity the question of possible contact dermatitis versus drug rash clinically not behaving as disseminated herpes as no vesicles were noticed 2-patient seemed to have shown clinical improvement and we'll consider low-dose steroids and will apply calamine lotion and a close outpatient follow-up discuss with the [facility] for admitting team Time with Patient: Less than 30
[2022-06-13 17:26] LABS: Glucose,Whole Blood 116 mg/dL (70-110)
--- NOTE | 2022-06-13 17:58 | P.PN ---
Subjective Progress Note Date: 06/13/22 Principal diagnosis: Lymphoma, weakness, confusion Family at bedside for family meeting today. Patient is alert, he is nonverbal, he does nod his head in what appears to be agreement, of certain questions. Objective - Vital Signs Vital signs: Vital Signs Temp 97.4 F L 06/13/22 07:00 Pulse 78 06/13/22 07:00 Resp 22 06/13/22 07:00 BP 144/84 06/13/22 07:00 Pulse Ox 98 06/13/22 07:36 FiO2 Intake & Output 06/12/22 06/13/22 06/13/22 18:59 06:59 18:59 Intake Total 474 Balance 474 Weight 77.111 kg Intake: Oral 474 Other: Voiding Method Diaper Diaper Diaper External Catheter # Voids 5 2 - Constitutional General appearance: Present: average body habitus, no acute distress - EENT Eyes: Present: anicteric sclerae, EOMI ENT: Present: hearing grossly normal - Respiratory Details: Respirations even and unlabored at rest - Integumentary Integumentary: Present: pale - Neurologic Neurologic: Present: CNII-XII intact (Grossly) - Musculoskeletal Musculoskeletal: Present: strength equal bilaterally - Psychiatric Psychiatric Comment(s): Alert, nonverbal, at times appears agitated, at times makes direct eye contact and appears to understand What you are saying to him - Labs CBC & Chem 7: 06/13/22 06:10 06/13/22 06:10 Labs: Abnormal Lab Results - Last 24 Hours (Table) 06/13/22 06/13/22 06/13/22 Range/Units 06:10 06:10 06:10 WBC 1.42 L* (4.50-10.00) X 10*3/uL RBC 3.33 L (4.40-5.60) X 10*6/uL Hgb 11.4 L (13.0-17.0) g/dL Hct 32.0 L (39.6-50.0) % MCH 34.2 H (27.0-32.0) pg Neutrophils # 1.22 L (1.80-7.70) X 10*3/uL Lymphocytes # 0.13 L (0.90-5.00) X 10*3/uL Monocytes # 0.06 L (0.20-1.00) X 10*3/uL Eosinophils # 0 L (0.04-0.35) X 10*3/uL Chloride 110 H (96-109) mmol/L Carbon Dioxide 19.4 L (20.0-27.5) mmol/L BUN/Creatinine Ratio 23.81 H (12.00-20.00) Ratio Glucose 130 H (70-110) mg/dL POC Glucose (mg/dL) (70-110) mg/dL AST 36 H (14-35) U/L C-Reactive Protein 2.00 H (0.00-0.80) mg/dL Total Protein 6.1 L (6.2-8.2) g/dL VZV IgG Interpret POSITIVE A (NEGATIVE) 06/13/22 06/13/22 Range/Units 07:31 11:57 WBC (4.50-10.00) X 10*3/uL RBC (4.40-5.60) X 10*6/uL Hgb (13.0-17.0) g/dL Hct (39.6-50.0) % MCH (27.0-32.0) pg Neutrophils # (1.80-7.70) X 10*3/uL Lymphocytes # (0.90-5.00) X 10*3/uL Monocytes # (0.20-1.00) X 10*3/uL Eosinophils # (0.04-0.35) X 10*3/uL Chloride (96-109) mmol/L Carbon Dioxide (20.0-27.5) mmol/L BUN/Creatinine Ratio (12.00-20.00) Ratio Glucose (70-110) mg/dL POC Glucose (mg/dL) 117 H 121 H (70-110) mg/dL AST (14-35) U/L C-Reactive Protein (0.00-0.80) mg/dL Total Protein (6.2-8.2) g/dL VZV IgG Interpret (NEGATIVE) Assessment and Plan (1) Weakness Current Visit: Yes Status: Acute Priority: High Code(s): R53.1 - WEAKNESS SNOMED Code(s): 32862946 (2) Failure to thrive in adult Current Visit: Yes Status: Acute Priority: High Code(s): R62.7 - ADULT FAILURE TO THRIVE SNOMED Code(s): 880838252 (3) Lymphoma Current Visit: Yes Status: Acute Priority: High Code(s): C85.90 - NON- HODGKIN LYMPHOMA, UNSPECIFIED, UNSPECIFIED SITE SNOMED Code(s): 978888953 Plan: Reviewed all of the following with and daughter at bedside and son on the phone The patient developed his current symptoms before starting treatment, and these have been progressive since, felt to be paraneoplastic. There is no evidence of any infection. He is being hydrated but, no real improvements. Patient's fam winsome needs to decide if they can care for him at home or if he needs to have placement. Family would like to take him home with home care and they will hire private duty. Case discussed with case management to provide them with information. If patient improves, he could continue on treatment. It was reinforced with family it is uncertain if any further therapy will improve patient's condition. Currently, he is not a candidate for [facility]. F/U with Dr. Ramesh Scheduled. They can keep that appointment or cancel if they choose. If patient requires more care than can be provided at home, recommendation is for placement. If patient is a permanent resident of a facility, sometimes those people can have treatments if there family brings some [id number] but, if the patient is in poor shape that's not recommended. Finally, if patient does not improve or worsens, recommendation is for hospice. Explained to the family that patient can be transitioned to hospice care while at home. If it is felt they would like placement, encouraged them to discuss with their home care staff. We can provide orders for the same at their request. ID As examined patient and rash. Topical treatment and low-dose steroids. Okay to continue. Greater than 40 minutes spent counseling and coordinating care. attests: I have seen and examined pt, performed H&P, developed impression and plan of care. Discussed with dictator, agree with documentation, dictated as a scribe. Time with Patient: Greater than 30
[2022-06-13 20:41] LABS: Glucose,Whole Blood 120 mg/dL (70-110)
[2022-06-14] MEDS: SODIUM CHLORIDE 0.9% 1,000 ML IV SCH ×3 (04:10→20:18)
--- NOTE | 2022-06-14 04:20 | P.PN ---
Subjective Progress Note Date: 06/13/22 Multiple falls and Weight loss Mr. Edwards is a 71-year-old male with a past medical history ofatrial fib rillation, coronary artery disease, hyperlipidemia, non-Hodgkin's lymphomareceiving chemotherapy and T-cell therapy brought in by his for the complaint of multiple falls and weight loss. Today the patient is lying in bed comfortably appears to be no acute distress. Patient is confused and does not provide any history. As per discussion with his who is at the bedside patient has significant decreased p.o. intake in the past 2 to 3 days. She has been having issues with anxiety and hyperactivity with purposeless movements mostly during evening times. On reviewing the patient's vital signs temperature of 98.2 heart rate 88 respiratory rate 18 blood pressure 134/63 saturating at 99 on room air. His labs from this morning showed white count of 2.2 hemoglobin 9.7 platelets of 193 sodium 144 potassium 3.7 chloride 112 bicarb 21 BUN 99 creatinine of 0.8. Urine analysis is negat sweetie. 06/12/2022 Patient is seen and evaluated in follow-up this morning continues to be significantly weak and confused. At the time of my exam there is no family available and per nursing staff patients has multiple questions regarding treatment plan and overall plan of care. Patient recently had chemotherapy and is concerned and would like to continue treatment but is unsure of overall prognosis and treatment plan moving forward. Patient with significant weakness will have PT/OT therapy evaluate the patient and will most likely require ECF. Family to decide further about ECF as this will cause a delay in oncological treatments while in rehab. Oncology following and to discuss again about plan of care in the a.m. Infectious disease was consulted as well as patient continues to have this generalized rash with itching noted. Patient is currently afebrile and reports of chest pain or shortness of breath noted. 06/13/2022 Patient is seen and evaluated today with and daughter at the bedside. Plan is for an informational meeting with oncology about overall treatment plan and care plan moving forward. Patient with history of lymphoma receiving treatment team in with progressive weakness and not eating or drinking very well and recently underwent chemo. Patient with paraneoplastic symptoms such as a dull rash of the back and upper extremities that was slightly worsening although improved with steroids and calamine. Shingles ruled out. Lengthy discussion was had about possibly needing ECF for continued PT/OT therapy although family is somewhat hesitant and would like to bring the patient home. Arrangements are being made for discharge planning with social work including obtaining a hospital bed, commode, walker. Patient is currently afebrile with no reports of chest pain or shortness of breath noted. Overall prognosis is guarded. Review of systems, unable to obtain as patient is mostly nonverbal Active Medications Acetaminophen (Acetaminophen Tab 325 Mg Tab) 650 mg PO Q6HR PRN PRN Reason: Mild Pain or Fever > 100.5 Calamine (Calamine/Zinc Oxide Lotion 177 Ml Btl) 1 applic TOPICAL BID [facility]; Protocol Last Admin: 06/13/22 20:47 Dose: 1 applic Enoxaparin Sodium (Enoxaparin 40 Mg/0.4 Ml Syringe) 40 mg SQ DAILY [facility] Last Admin: 06/13/22 09:03 Dose: 40 mg Sodium Chloride (Saline 0.9%) 1,000 mls @ 130 mls/hr IV .Q7H42M [facility] Last Admin: 06/14/22 04:10 Dose: 130 mls/hr Morphine Sulfate (Morphine Sulfate 4 Mg/Ml Syringe) 4 mg IV Q4HR PRN PRN Reason: Severe Pain (Scale 7 to 10) Naloxone HCl (Naloxone 0.4 Mg/Ml 1 Ml Vial) 0.2 mg IV Q2M PRN PRN Reason: Opioid Reversal Pantoprazole Sodium (Pantoprazole 40 Mg/10 Ml Vial) 40 mg IV DAILY [facility] Last Admin: 06/13/22 09:03 Dose: 40 mg Physical exam: GEN. APPEARANCE: alert, in no apparent distress EYE EXAM: no pallor or icterus. RESPIRATORY EXAM: normal lung sounds bilaterally. No respiratory distress, wheezes CARDIOVASCULAR EXAM: regular rate, normal rhythm, normal heart sounds. GI/ABDOMINAL EXAM: soft, normal bowel sounds EXTREMITIES EXAM: NO edema NEUROLOGICAL EXAM: awake and does not follow commands. He is oriented to his name only Skin: Maculopapular rash of upper extremities bilaterally and back with improvement Assessment: Multiple falls Weight loss unintentional Non-Hodgkin's lymphoma Status post chemo and T-cell therapy Lymphopenia History of coronary artery disease status post stenting Cognitive impairment History of atrial fibrillation No code PLAN: Recommend to continue current medications and management with oncology and ID following Patient with a generalized maculopapular rash that was reported as prior to most recent chemo treatment and ID following and being treated with calamine lotion and was given a dose of steroids. Symptoms felt to be paraneoplastic as patient did have this mild rash prior to chemo initiation PT/OT therapy evaluation for possible ECF although family is considering taking the patient home if having the proper medical equipment with social work following working on discharge planning Oncology had a lengthy, detailed discussion with her spouse about overall treatment plan and plan moving forward for possible ECF for rehab versus home or if patient continues to deteriorate, possibly hospice, code was discussed again and patient is no code Due to multiple complex medical issues, Overall prognosis is poor Further recommendations depending on the progress of the patient Possible discharge in the next 24-48 hours The impression and plan of care has been dictated by Le Payne, Nurse Practitioner as directed. Dr. Joe MD I have performed a history and examination and MDM of this patient, discussed the same with the dictator, and agree with the dictator's assessment and plan as written ,documented as a scribe. Based on total visit time, I have performed more than 50% of the visit. Objective - Vital Signs Vital signs: Vital Signs Temp 97.4 F L 06/13/22 07:00 Pulse 78 06/13/22 07:00 Resp 22 06/13/22 07:00 BP 144/84 06/13/22 07:00 Pulse Ox 98 06/13/22 07:36 FiO2 Intake & Output 06/12/22 06/13/22 06/13/22 18:59 06:59 18:59 Intake Total 474 Balance 474 Weight 77.111 kg Intake: Oral 474 Other: Voiding Method Diaper Diaper Diaper External Catheter # Voids 5 2 - Labs CBC & Chem 7: 06/13/22 06:10 06/13/22 06:10 Labs: Abnormal Lab Results - Last 24 Hours (Table) 06/13/22 06/13/22 06/13/22 Range/Units 06:10 06:10 07:31 Chloride 110 H (96-109) mmol/L Carbon Dioxide 19.4 L (20.0-27.5) mmol/L BUN/Creatinine Ratio 23.81 H (12.00-20.00) Ratio Glucose 130 H (70-110) mg/dL POC Glucose (mg/dL) 117 H (70-110) mg/dL AST 36 H (14-35) U/L C-Reactive Protein 2.00 H (0.00-0.80) mg/dL Total Protein 6.1 L (6.2-8.2) g/dL VZV IgG Interpret POSITIVE A (NEGATIVE)
[2022-06-14 07:15] LABS: Glucose,Whole Blood 110 mg/dL (70-110)
[2022-06-14] MEDS: ENOXAPARIN 40 MG/0.4 ML SYRINGE SQ SCH (11:18)
[2022-06-14] MEDS: CALAMINE/ZINC OXIDE LOTION 177 ML BTL TOPICAL SCH ×2 (11:18→20:18)
[2022-06-14] MEDS: PANTOPRAZOLE 40 MG/10 ML VIAL IV SCH (11:18)
[2022-06-14 11:58] LABS: Glucose,Whole Blood 124 mg/dL (70-110)
--- NOTE | 2022-06-14 14:21 | P.PN ---
Subjective Progress Note Date: 06/14/22 Principal diagnosis: Rash and a question of disseminated herpes Patient is a 71-year-old male with a past medical history significant for atrial fibrillation coronary disease hyperlipidemia non-Hodgkin lymphoma and currently has been on chemotherapy with the last chemo on Saturday, patient has been brought into the ER for evaluation of increasing weakness and having pro blem with the gait and speech no clear history of any fever or any chills, patient also noticed to have a rash to the back and upper chest area with significant itching. On today's evaluation that is 06/14/2022 the patient remains to be afebrile, the patient is slightly more awake and alert today and the patient rash has slightly decreased intensity and itching has decreased, no sores in the mouth no nausea no vomiting and no diarrhea and no new rash has been noticed Objective - Vital Signs Vital signs: Vital Signs Temp 96.3 F L 06/14/22 07:00 Pulse 79 06/14/22 07:00 Resp 18 06/14/22 07:00 BP 153/86 06/14/22 07:00 Pulse Ox 94 L 06/14/22 07:29 FiO2 Intake & Output 06/13/22 06/14/22 06/14/22 18:59 06:59 18:59 Intake Total 200 Balance 200 Weight 77.111 kg Intake: Oral 200 Other: Voiding Method Diaper Diaper Diaper External Catheter # Voids 3 2 1 # Bowel Movements 1 - Exam GENERAL DESCRIPTION: An elderly male lying in bed in no distress RESPIRATORY SYSTEM: Unlabored breathing , decreased breath sounds at bases HEART: S1 S2 regular rate and rhythm , Rash to the upper chest area has decreased in intensity ABDOMEN: Soft , no tenderness EXTREMITIES: No edema feet - Labs CBC & Chem 7: 06/13/22 06:10 06/13/22 06:10 Labs: Abnormal Lab Results - Last 24 Hours (Table) 06/13/22 06/13/22 06/14/22 Range/Units 17:23 20:40 11:57 POC Glucose (mg/dL) 116 H 120 H 124 H (70-110) mg/dL Assessment and Plan (1) Rash Current Visit: Yes Status: Acute Code(s): R21 - RASH AND OTHER NONSPECIFIC SKIN ERUPTION SNOMED Code(s): 934006847 Plan: 1patient with mostly macular papular rash involving the back and upper trunk area no significant involvement of the lower abdominal or the lower extremity or upper extremity the question of possible contact dermatitis versus drug rash clinically not behaving as disseminated herpes as no vesicles were noticed 2-patient did have minimal clinical improvement and advise low-dose steroids and will apply calamine lotion and a close outpatient follow-up Questions concerned were answered Time with Patient: Less than 30
[2022-06-14] MEDS: predniSONE 10 MG TAB PO SCH (15:43)
--- NOTE | 2022-06-14 16:04 | P.PN ---
Subjective Progress Note Date: 06/14/22 Principal diagnosis: confusion weakness Patient is still significantly weak, according to his he has not been eating much. He is confused which has been ongoing problem for him secondary to chemotherapy. He still has maculopapular rash especially in the truncal area. No fevers or chills. No pain reported. No shortness of breath. Objective - Vital Signs Vital signs: Vital Signs Temp 96.3 F L 06/14/22 07:00 Pulse 79 06/14/22 07:00 Resp 18 06/14/22 07:00 BP 153/86 06/14/22 07:00 Pulse Ox 94 L 06/14/22 07:29 FiO2 Intake & Output 06/13/22 06/14/22 06/14/22 18:59 06:59 18:59 Intake Total 200 Balance 200 Weight 77.111 kg Intake: Oral 200 Other: Voiding Method Diaper Diaper Diaper External Catheter # Voids 3 2 1 # Bowel Movements 1 - Exam Constitutional: No acute distress, conversant, pleasant Eyes:Anicteric sclerae, moist conjunctiva, no lid-lag, PERRLA, ENMT: Oropharynx clear, no erythema, exudates Neck: Supple, FROM, no masses, or JVD, No carotid bruits, No thyromegaly Lungs: Clear to auscultation, Clear to percussion, Normal respiratory effort, no accessory muscle use Cardiovascular: Heart regular in rate and rhythm, No murmurs, gallops, or rubs, No peripheral edema Abdominal: Soft, Nontender, no guarding, rebound or rigidity, Normoactive bowel sounds, No hepatomegaly, No splenomegaly, No palpable mass Skin: Maculopapular rash in the truncal area. Normal temperature, tone, texture, turgor, no induration, No subcutaneous nodules, No rash, lesions, No ulcers Extremities: No digital cyanosis, No clubbing, Pedal pulses intact and symmetrical, Radial pulses intact and symmetrical, No calf tenderness Psychiatric: Pleasantly confused Neuro: Gen. weakness, moving all extremities. - Labs CBC & Chem 7: 06/13/22 06:10 06/13/22 06:10 Labs: Abnormal Lab Results - Last 24 Hours (Table) 06/13/22 06/13/22 06/14/22 Range/Units 17:23 20:40 11:57 POC Glucose (mg/dL) 116 H 120 H 124 H (70-110) mg/dL Assessment and Plan Plan: Multiple falls Weight loss unintentional IV fluids Add Remeron for appetite stimulation PT/OT Hospital bed arranged. Non-Hodgkin's lymphoma Status post chemo and T-cell therapy Lymphopenia Oncology following Maculopapular rash that was reported as prior to most recent chemo treatment ID following and being treated with calamine lotion and prednisone. 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
[2022-06-14 17:16] LABS: Glucose,Whole Blood 111 mg/dL (70-110)
[2022-06-14 19:18] LABS: Glucose,Whole Blood 143 mg/dL (70-110)
[2022-06-14] MEDS ORDERED: MIRTAZAPINE 15 MG TAB PO SCH (21:00)
[2022-06-15] MEDS: SODIUM CHLORIDE 0.9% 1,000 ML IV SCH ×2 (03:31→10:58)
[2022-06-15 05:25] LABS: Herpes simplex I and/or II IgM 0.27 INDEX (<=0.90); Herpes simplex IgG I Ab 0.13 (< or = 0.90); Herpes simplex IgG II Ab 0.07 (< or = 0.90)
[2022-06-15 06:04] LABS: Glucose,Whole Blood 103 mg/dL (70-110)
[2022-06-15] MEDS: ENOXAPARIN 40 MG/0.4 ML SYRINGE SQ SCH (08:06)
[2022-06-15] MEDS: CALAMINE/ZINC OXIDE LOTION 177 ML BTL TOPICAL SCH (08:07)
[2022-06-15] MEDS: predniSONE 10 MG TAB PO SCH (08:07)
[2022-06-15 08:09] VITALS: BP 136/85; PULSE 79; RESP 16; TEMP 97
[2022-06-15] MEDS ORDERED: polyethylene glycoL 3350 17 GM POWD.PACK PO STA (10:38)
[2022-06-15] MEDS: PANTOPRAZOLE 40 MG/10 ML VIAL IV SCH (10:58)
[2022-06-15 12:01] LABS: Glucose,Whole Blood 112 mg/dL (70-110)
--- NOTE | 2022-06-15 13:00 | P.DS ---
Providers Date of admission: 06/10/22 06:32 Expected date of discharge: 06/15/22 Attending physician: Jessi Lezama DO Consults: 06/10/22 15:03 Consult Physician Routine Consulting Provider: Joon Ramesh Consult Reason/Comments: nonhodgkins pt known to you Do you want consulting provider notified?: Yes 06/12/22 15:26 Consult Physician Routine Consulting Provider: Danish Crowley Consult Reason/Comments: ? disseminated shingles Do you want consulting provider notified?: Yes Primary care physician: Jerome Rivas MD Hospital Course: 71-year-old white male with hx of follicular lymphoma being followed by oncology presented to the hospital because over the past few months, he has been noted to develop weakness, as well as gradual decrease in cognition and memory. He has had MRIs 2, showing atrophic changes with some mild progression, overall nonspecific. Lumbar puncture on 05/22/22 was negative. The patient is also being followed at the [facility] with the stem cell transplant team. 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 He was started back on treatment with Rituximab + Polituzumab, and is status post 2 cycles with the most recent given on 06/08/22. No fevers, chills, or symptoms suggestive of infection. The patient's oral intake has been significantly diminished and he has lost about 10 pounds loss in the last 2-3 weeks. Symptoms wosen through the night, with agitation and hyperactivity with purposeless movements. She states that on the night of 06/08/22 he took Ativan as well as Marinol. The day after the patient was overall weaker and fell. He also appeared to be more lethargic and less responsive. His states that she was able to get him up with difficulty, but he could not ambulate on his own at all. He was therefore brought to the hospital and admitted for further management. CT of the brain again showed evidence of atrophic changes. Chest x-ray was negative for any active disease. Labs did not show any major abnormalities. During the hospitalization he was noticed to have a rash to the back and upper chest area with significant itching. He was seen by ID who felt it is most likely due to contact dermatitis. He was given some steroids. No significant improvement. He was also seen by oncology during the hospitalization who discussed his case with his family, if he continues to decline the plan is to switch him to hospice. Obviously she is not a candidate for any further chemotherapy at this point. Patient was seen and examined by the day of discharge 06/15 Time for discharge 35 minutes. Patient Condition at Discharge: Fair Plan - Discharge Summary Discharge Rx Participant: No New Discharge Prescriptions: New Mirtazapine [Remeron] 15 mg PO HS 30 Days #30 tab Continue LORazepam [Ativan] 1 mg PO Q8H PRN PRN Reason: Anxiety Discharge Medication List LORazepam [Ativan] 1 mg PO Q8H PRN 06/13/22 [History] Mirtazapine [Remeron] 15 mg PO HS 30 Days #30 tab 06/15/22 [Rx] Follow up Appointment(s)/Referral(s): Jerome Rivas MD [Primary Care Provider] - 1-2 days [facility] Visiting Nurse, [NON-STAFF] - 1 Week
--- NOTE | 2022-06-15 16:18 | P.PN ---
Subjective Progress Note Date: 06/15/22 Principal diagnosis: Rash and a question of disseminated herpes Patient is a 71-year-old male with a past medical history significant for atrial fibrillation coronary disease hyperlipidemia non-Hodgkin lymphoma and currently has been on chemotherapy with the last chemo on Saturday, patient has been brought into the ER for evaluation of increasing weakness and having pro blem with the gait and speech no clear history of any fever or any chills, patient also noticed to have a rash to the back and upper chest area with significant itching. On today's evaluation that is 06/15/2022 the patient continues to be afebrile, the patient is breathing comfortably on room air rash and itching to the upper trunk is decreased intensity per the at the bedside no vomiting or any diarrhea reported Objective - Vital Signs Vital signs: Vital Signs Temp 97 F L 06/15/22 07:00 Pulse 79 06/15/22 08:00 Resp 16 06/15/22 08:00 BP 136/85 06/15/22 07:00 Pulse Ox 98 06/15/22 07:00 FiO2 Intake & Output 06/14/22 06/15/22 06/15/22 18:59 06:59 18:59 Intake Total 200 Balance 200 Weight 77.111 kg Intake: Oral 200 Other: Voiding Method Diaper Diaper Diaper # Voids 1 1 # Bowel Movements 2 - Exam GENERAL DESCRIPTION: An elderly male lying in bed in no distress RESPIRATORY SYSTEM: Unlabored breathing , decreased breath sounds at bases HEART: S1 S2 regular rate and rhythm , Rash to the upper chest area has decreased in intensity ABDOMEN: Soft , no tenderness EXTREMITIES: No edema feet - Labs CBC & Chem 7: 06/13/22 06:10 06/13/22 06:10 Labs: Abnormal Lab Results - Last 24 Hours (Table) 06/14/22 06/14/22 06/14/22 Range/Units 11:57 17:16 19:17 POC Glucose (mg/dL) 124 H 111 H 143 H (70-110) mg/dL Assessment and Plan (1) Rash Status: Acute Code(s): R21 - RASH AND OTHER NONSPECIFIC SKIN ERUPTION SNOMED Code(s): 664050555 Plan: 1patient with mostly macular papular rash involving the back and upper trunk area no significant involvement of the lower abdominal or the lower extremity or upper extremity the question of possible contact dermatitis versus drug rash clinically not behaving as disseminated herpes as no vesicles were noticed 2-patient has shown slow clinical improvement and advise low-dose steroids and calamine lotion for comfort and close outpatient follow-up Time with Patient: Less than 30
[2022-06-16] MEDS ORDERED: PANTOPRAZOLE 40 MG TABLET PO SCH (07:30)
== END 2022-06-15 15:41 | disposition home or self-care (01) | DRG 607 ==
LOC: EC 05:05 → 6NMEDSUR 06:32 → OBSVTOIN 06-14 15:55
PROVIDERS: ADMIT Internal Medicine; ATTEND Internal Medicine
DX: L25.9 Unspecified contact dermatitis, unspecified cause (principal); B02.7 Disseminated zoster; C83.30 Diffuse large B-cell lymphoma, unspecified site; F03.94 Unspecified dementia, unspecified severity, with anxiety; R62.7 Adult failure to thrive; T45.1X5A Adverse effect of antineoplastic and immunosuppressive drugs, initial encounter; R41.0 Disorientation, unspecified; R53.1 Weakness; R63.4 Abnormal weight loss; G31.89 Other specified degenerative diseases of nervous system; E86.0 Dehydration; F90.9 Attention-deficit hyperactivity disorder, unspecified type; I25.10 Atherosclerotic heart disease of native coronary artery without angina pectoris; I48.91 Unspecified atrial fibrillation; R29.6 Repeated falls; M19.90 Unspecified osteoarthritis, unspecified site; E78.5 Hyperlipidemia, unspecified; Z79.82 Long term (current) use of aspirin; Z87.442 Personal history of urinary calculi; Z85.828 Personal history of other malignant neoplasm of skin; Z87.891 Personal history of nicotine dependence; Z95.5 Presence of coronary angioplasty implant and graft; X58.XXXA Exposure to other specified factors, initial encounter
CPT/HCPCS: 36415; 70450; 71045; 80053; 81003; 83605; 83735; 83880; 84100; 84484; 85025; 85610; 85730; 86140; 86694; 86695; 86696; 86787; 93005; 94760; 99285